=== PATIENT | female | born 1990 | race Caucasian/White ===

== ENCOUNTER → 2017-10-27 15:13 | Outpatient (CLI) | payer SELFPAY ==
[2017-10-27 17:34] LABS: Chlamydia Trachomatis by PCR Negative (Negative); Neisserai gonorrhoeae by PCR Negative (Negative); Probe Check PASS; Sample Adequacy Control PASS; Specimen Processing Control PASS
== END ==
PROVIDERS: Visit Provider Obstetrics & Gynecology
DX: Z34.90 Encounter for supervision of normal pregnancy, unspecified, unspecified trimester (principal)
CPT/HCPCS: 87086; 87088; 87491; 87591

== ENCOUNTER → 2017-10-29 09:48 | Outpatient (CLI) | payer SELFPAY ==
[2017-10-29 10:08] LABS: Absolute Lymphocyte Count 1.65 X10^3/ul (0.83-4.51); Basophil# 0.01 X10^3/uL; Basophil% 0.1 % (0-1); Eosinophil# 0.22 X10^3/uL; Hematocrit 39.8 % (37-47); Hemoglobin 13.6 g/dl (12.0-15.0); Lymphocyte # 1.65 X10^3/ul (4.0); Lymphocyte % 22.8 % (19-41); Mean Corp Hgb Conc 34.2 g/gl (32-36); Mean Corpuscular Hgb 29.2 pg (27.0-32.0); Mean Corpuscular Volume 85.4 fL (81-99); Mean Platelet Vol. 9.4 fl (6.2-12.0); Monocyte# 0.34 X10^3/uL; Monocyte% 4.7 % (0-10); Neutrophil # 5.02 X10^3/uL (2.7-7.7); Neutrophil % 69.3 % (47-70); Platelet Count 218 K/mm3 (150-450); RBC Distribution Width CV 12.7 % (11.6-14.6); Red Blood Count 4.66 M/mm3 (4.2-5.4); White Blood Count 7.3 K/mm3 (4.4-11.0)
[2017-10-29 10:10] LABS: POSITIVE COUNT NO; POSITIVE DIFFERENTIAL NO; POSITIVE MORPHOLOGY NO
[2017-10-29 11:22] LABS: HIV - WCH Non-Reactive (Nonreactive); Rubella IgG 122.1 IU/mL
[2017-11-01 09:10] LABS: HEPATITIS B SURFACE AG Negative (Negative)
[2017-11-05 05:06] LABS: Rapid Plasmin Reagin (RPR) NONREACTIVE (NONREACTIVE)
== END ==
PROVIDERS: Visit Provider Obstetrics & Gynecology
DX: Z34.90 Encounter for supervision of normal pregnancy, unspecified, unspecified trimester (principal)
CPT/HCPCS: 36415; 85025; 86592; 86703; 86762; 86850; 86900; 87340

== ENCOUNTER → 2017-12-13 12:26 | Outpatient (CLI) | payer MEDICAID, SELFPAY ==
--- NOTE | 2017-12-13 12:29 | US_ITS ---
STUDY: SECOND AND THIRD TRIMESTER OBSTETRICAL ULTRASOUND REASON FOR EXAM: Female, 26 years old. Routine survey. LMP: August 02, 2017. TECHNIQUE: Transabdominal PRIOR ULTRASOUND: None. FINDINGS: There is a single intrauterine fetus. The fetus is in an transverse lie with the head on the maternal left side. There is demonstrated cardiac activity with a heart rate of 134 bpm. There is a normal amniotic fluid volume. The largest amniotic fluid pocket measures 4.9 cm x 8.9 cm. The amniotic fluid index (CATY) is within normal limits. The placenta is posterior in location and is not low lying. There are Grade 0 placental changes. The cervix measures 5.3 cm in length. The bilateral adnexal regions are normal. BIOMETRY: BPD: 4.1 cm: 8 weeks, 4 days HC: 15.3 cm: 8 weeks, 3 days AC: 13.1 cm: 8 weeks, 5 days FL: 2.9 cm: 18 weeks, 6 days CI: 79% FL/BPD: 70% FL/HC: FL/AC: 22% HC/AC: 1.17 age by current US: . 18 weeks, 5 days. ELOISA by current US: May 11, 2018. Estimated weight: 251 grams, +/- 37 grams, 27 %. Age by LMP: 19 weeks, 0 days. ELOISA by LMP: May 09, 2018. ANATOMY: Gender: Female Cranium: Normal lateral ventricles. Normal choroid plexus. Normal cerebellum. Normal cisterna magna. Normal face, nose and lips. Chest: Normal 4-chamber heart. Abdomen/Pelvis: Normal diaphragm. Normal stomach. Normal abdominal wall. Normal cord insertion. Normal 3 vessel cord. Moderate to severe degree of bilateral hydronephrosis. Normal bladder. Spine: Normal cervical spine. Normal thoracic spine. Normal lumbar spine. Normal sacrum. Extremities: Normal bilateral upper extremities. Normal bilateral lower extremities. US/OB Anatomy Scan IMPRESSION: Single live intrauterine gestation with a mean gestational age of 18 weeks and 5 days. Moderate to severe degree of bilateral hydronephrosis. The referring physician was notified. Electronically Signed: Ted Matt MD at 14:01 EDT Tel [phone], Service support ,
== END ==
PROVIDERS: Visit Provider Obstetrics & Gynecology
DX: Z34.81 Encounter for supervision of other normal pregnancy, first trimester (principal)
CPT/HCPCS: 76805

== ENCOUNTER → 2018-02-18 12:31 | Outpatient (CLI) | payer MEDICAID, SELFPAY ==
[2018-02-18 13:38] LABS: Absolute Lymphocyte Count 1.41 X10^3/ul (0.83-4.51); Absolute Neutrophil Count 5.7 X10^3/uL (2.0-7.7); Basophil# 0.01 X10^3/uL; Basophil% 0.1 % (0-1); Eosinophil# 0.08 X10^3/uL; Eosinophils% 1.1 % (0-5); Hemoglobin 12.3 g/dl (12.0-15.0); Lymphocyte # 1.41 X10^3/ul (4.0); Lymphocyte % 18.9 % (19-41); Mean Corp Hgb Conc 33.2 g/gl (32-36); Mean Corpuscular Hgb 29.4 pg (27.0-32.0); Mean Corpuscular Volume 88.5 fL (81-99); Mean Platelet Vol. 10.1 fl (6.2-12.0); Monocyte# 0.24 X10^3/uL; Monocyte% 3.2 % (0-10); Neutrophil # 5.72 X10^3/uL (2.7-7.7); Neutrophil % 76.6 % (47-70); Platelet Count 245 K/mm3 (150-450); RBC Distribution Width CV 13.4 % (11.6-14.6); RBC Distribution Width SD 42.8 fl (35.1-43.9); Red Blood Count 4.18 M/mm3 (4.2-5.4); White Blood Count 7.5 K/mm3 (4.4-11.0)
[2018-02-18 13:43] LABS: POSITIVE COUNT NO; POSITIVE DIFFERENTIAL NO; POSITIVE MORPHOLOGY NO
[2018-02-18 14:02] LABS: Glucose Challenge Gest 1H 50g 187 mg/dL (70-140)
== END ==
PROVIDERS: Visit Provider Obstetrics & Gynecology
DX: Z34.90 Encounter for supervision of normal pregnancy, unspecified, unspecified trimester (principal)
CPT/HCPCS: 36415; 82950; 85025; 86850; 86900

== ENCOUNTER 2018-03-03 08:56 | Outpatient (RCR) | payer MEDICAID, SELFPAY | END 2018-03-06 23:59 | LOC: DC 08:56 | PROVIDERS: Visit Provider Nurse Practitioner Women's Health | DX: O24.419 Gestational diabetes mellitus in pregnancy, unspecified control (principal); Z71.3 Dietary counseling and surveillance | CPT/HCPCS: G0108 ==

== ENCOUNTER → 2018-03-28 19:46 | Outpatient (CLI) | payer MEDICAID, SELFPAY | PROVIDERS: Referring Provider Nurse Practitioner Women's Health; Visit Provider Nurse Practitioner Women's Health | DX: M54.5 Low back pain (principal) | CPT/HCPCS: 87086; 87088 ==

== ENCOUNTER 2018-03-31 15:15 | Outpatient (RCR) | payer MEDICAID, SELFPAY | END 2018-04-06 23:59 | LOC: DC 15:15 | PROVIDERS: Visit Provider Nurse Practitioner Women's Health | DX: O24.419 Gestational diabetes mellitus in pregnancy, unspecified control (principal); Z71.3 Dietary counseling and surveillance | CPT/HCPCS: 97802 ==

== ENCOUNTER 2018-04-07 08:00 | Outpatient (RCR) | payer MEDICAID, SELFPAY | END 2018-04-07 23:59 | disposition home or self-care (01) | LOC: DC 08:00 | PROVIDERS: Visit Provider Nurse Practitioner Women's Health | DX: O24.419 Gestational diabetes mellitus in pregnancy, unspecified control (principal); Z71.3 Dietary counseling and surveillance ==

== ENCOUNTER → 2018-04-14 19:50 | Outpatient (CLI) | payer MEDICAID, SELFPAY ==
[2018-04-14 21:18] LABS: Group B Strep DNA By PCR POSITIVE (Negative)
[2018-04-14 21:19] LABS: Probe Check PASS
== END ==
PROVIDERS: Referring Provider Obstetrics & Gynecology; Visit Provider Obstetrics & Gynecology
DX: Z34.90 Encounter for supervision of normal pregnancy, unspecified, unspecified trimester (principal)
CPT/HCPCS: 87653

== ENCOUNTER → 2018-04-21 13:29 | Outpatient (CLI) | payer MEDICAID, SELFPAY ==
[2018-04-14 09:56] VITALS: BMI 36.0
[2018-04-21 14:36] LABS: Absolute Lymphocyte Count 1.13 X10^3/ul (0.83-4.51); Absolute Neutrophil Count 4.3 X10^3/uL (2.0-7.7); Basophil# 0.01 X10^3/uL; Basophil% 0.2 % (0-1); Eosinophil# 0.12 X10^3/uL; Eosinophils% 2.1 % (0-5); Hematocrit 35.2 % (37-47); Hemoglobin 11.4 g/dl (12.0-15.0); Lymphocyte # 1.13 X10^3/ul (4.0); Lymphocyte % 19.5 % (19-41); Mean Corp Hgb Conc 32.4 g/gl (32-36); Mean Corpuscular Hgb 27.8 pg (27.0-32.0); Mean Corpuscular Volume 85.9 fL (81-99); Mean Platelet Vol. 10.9 fl (6.2-12.0); Monocyte# 0.23 X10^3/uL; Platelet Count 198 K/mm3 (150-450); RBC Distribution Width SD 39.9 fl (35.1-43.9); White Blood Count 5.8 K/mm3 (4.4-11.0)
[2018-04-21 14:38] LABS: POSITIVE COUNT NO; POSITIVE DIFFERENTIAL NO; POSITIVE MORPHOLOGY NO
[2018-04-21 15:01] LABS: ALB/GLOB Ratio 0.6 RATIO (0.9-2.4); AST(SGOT) 17 U/L (15-37); Alanine Aminotransfer ALT/SGPT 22 U/L (13-56); Albumin, Serum 2.4 g/dL (3.2-5.0); Alkaline Phosphatase 110 U/L (45-117); Anion Gap 10 (5-15); BUN 5 mg/dL (7-18); BUN/Creat Ratio 7.3 RATIO (10-20); Calcium,Total 8.5 mg/dL (8.5-10.1); Chloride 108 mmol/L (98-107); Creatinine, Serum 0.68 mg/dL (0.55-1.02); EST Glomerular Filtration Rate 108 mL/min (>60); Est Glom Filt Rate - Afr Amer 131 mL/min (>60); Glucose 126 mg/dL (74-106); Potassium 3.8 mmol/L (3.5-5.1); Protein, Total 6.4 g/dL (6.4-8.2); Sodium Level 141 mmol/L (136-145)
== END ==
PROVIDERS: Referring Provider Obstetrics & Gynecology; Visit Provider Obstetrics & Gynecology
DX: Z87.59 Personal history of other complications of pregnancy, childbirth and the puerperium (principal); Z87.19 Personal history of other diseases of the digestive system
CPT/HCPCS: 80053; 85025

== ENCOUNTER 2018-04-25 11:40 | Outpatient (CLI) | payer MEDICAID, SELFPAY ==
[2018-04-22 09:19] VITALS: BMI 35.9
[2018-04-25 11:57] VITALS: BMI 36.1
--- NOTE | 2018-04-25 21:03 | OB.TRI.NOTE ---
- Problem List (1) History of shoulder dystocia in prior , currently in third trimester Status: Acute Comment: discussed 20% risk of recurrence, will discuss with MFM. patient prefers (2) Breech presentation Status: Acute Qualifiers: Comment: discussed ECV version CS- patient prefers ECV if MFM approves . (3) Gestational diabetes mellitus (GDM) Status: Acute Qualifiers: Comment: test twice a day (4) Unspecified contraceptive management Status: Acute Comment: mirena IUD (5) Abnormal glucose affecting Status: Acute Comment: Prior hx of GDM and prefers to not due 3hr GTT and follow GDM guidelines (6) Pyelectasis of fetus on ultrasound Status: Acute Comment: MFM consult- sees them weekly (7) History of gestational diabetes in prior , currently Status: Acute (8) Supervision of normal Status: Acute Qualifiers: Comment: PRR ELOISA 05/09/18 PC Maki and Ever winston Brayan (9) Rh negative status during Status: Acute Qualifiers: Comment: rhogam prn and at 28 weeks History of Present Illness Date of Service: 04/25/18 Was patient seen by the physician?: Yes Reason For Visit: NST History of Present Illness: breech, gdma1. fetus measuring 3 ounces larger than her last delivery that had a shoulder dystocia Allergies No Known Allergies Allergy (Verified 04/25/18 11:59) - Pertinent Past Medical History Medical History: Past Medical History (Last Reviewed 04/22/18 @ 09:20 by Shelly Daniels) Ectopic Gestational diabetes NST - FHR Rate Baby A Baseline: 130 Variability:: Moderate Accelerations:: 15 x 15 Decelerations:: None NST Reactive:: Yes FHR Category:: Category I Uterine Activity:: no regular Impression/Plan gdma and breech- discussed version, but now that the baby is measuring larger than her last child that had a shoulder dystocia, would recommend primary csection so will not proceed with version. patient amenable to primary cs
== END 2018-04-25 12:45 | disposition home or self-care (01) ==
LOC: WPOUT 11:42 → WP 11:43
PROVIDERS: Referring Provider Obstetrics & Gynecology; Visit Provider Obstetrics & Gynecology
DX: O32.1XX0 Maternal care for breech presentation, not applicable or unspecified (principal); O24.419 Gestational diabetes mellitus in pregnancy, unspecified control; O09.899 Supervision of other high risk pregnancies, unspecified trimester; O35.8XX0 Maternal care for other (suspected) fetal abnormality and damage, not applicable or unspecified; Z3A.00 Weeks of gestation of pregnancy not specified
CPT/HCPCS: 59025

== ENCOUNTER 2018-05-02 10:00 | Inpatient (IN) | payer MEDICAID, SELFPAY ==
[2018-04-26 08:56] VITALS: BMI 36.1
[2018-04-29 13:58] VITALS: BMI 36.1
[2018-05-02] VITALS (18 sets, daily range): BP systolic 109–125; BP diastolic 46–89; PULSE 62–105; RESP 16–18; TEMP 36.2–37.2; O2SAT 96–100; BMI 36.1
[2018-05-02] MEDS: Lactated Ringers 1,000 ML 999 ML IV (10:30)
[2018-05-02 10:46] LABS: Absolute Lymphocyte Count 1.36 X10^3/ul (0.83-4.51); Absolute Neutrophil Count 4.4 X10^3/uL (2.0-7.7); Basophil# 0.02 X10^3/uL; Basophil% 0.3 % (0-1); Eosinophil# 0.06 X10^3/uL; Hematocrit 38.4 % (37-47); Hemoglobin 12.7 g/dl (12.0-15.0); Lymphocyte # 1.36 X10^3/ul (4.0); Lymphocyte % 22.1 % (19-41); Mean Corp Hgb Conc 33.1 g/gl (32-36); Mean Corpuscular Volume 84.6 fL (81-99); Mean Platelet Vol. 11.2 fl (6.2-12.0); Monocyte# 0.34 X10^3/uL; Monocyte% 5.5 % (0-10); Neutrophil # 4.36 X10^3/uL (2.7-7.7); Neutrophil % 71.1 % (47-70); Platelet Count 200 K/mm3 (150-450); RBC Distribution Width CV 13.2 % (11.6-14.6); RBC Distribution Width SD 40.2 fl (35.1-43.9); Red Blood Count 4.54 M/mm3 (4.2-5.4); White Blood Count 6.1 K/mm3 (4.4-11.0)
[2018-05-02 10:50] LABS: POSITIVE COUNT NO; POSITIVE DIFFERENTIAL NO; POSITIVE MORPHOLOGY NO
[2018-05-02 11:30] LABS: Bedside Glucose 71 mg/dL (70-110)
[2018-05-02] MEDS: Lactated Ringers 1,000 ML 150 ML IV (11:37)
[2018-05-02] MEDS: Cefazolin 2 GM in 0.9% Normal Saline 100 ML IV (12:00)
[2018-05-02] MEDS: Sodium Citrate/Citric Acid 30 ML UDC PO (12:25)
[2018-05-02] MEDS: Oxytocin 30 units/NS 500 ml 30 UNITS/500 ML IV.SOLN 167 UNITS IV (13:00)
--- NOTE | 2018-05-02 13:47 | SKTAG_PTH ---
PATIENT: KARRIE CAMACHO LOC: [facility] U#:[id number] AGE/SX: 27/F ROOM: WP004 RE05/02/[address]: Dr. Latesha Gamez MD : 1990 BED: 1 DIS: 05/03/2018 SPEC #: [id number] RECD: 05/02/18 14:22 STATUS: DEEJAY RECheryl #: [id number] MARK: 05/02/18 13:[address]: Latesha Torres DEPT: SURGICAL PATHOLOGY RECD BY: Linda Rodriguez ENTERED: 05/02/18 14:33 SP TYPE: SKIN TAG OTHR DR: No Primary Care Phys Tissues: Skin appendage, NOS Procedures: Surgery Specimen Level III HEADER OPERATION: Right groin skin tag removal PRE-OP DIAGNOSIS: Right groin skin tag TISSUE SUBMITTED: Right groin skin tag MICROSCOPIC DIAGNOSIS Right groin skin tag, biopsy: Fibroepithelial polyp (skin tag) with focal hyperkeratosis and parakeratosis. SJ:gus 05/03/18 MICROSCOPIC DESCRIPTION Slides are reviewed. GROSS DESCRIPTION Received is one container labeled with the patient's name and not further designated. The specimen consists of a polypoid piece of freedman-white skin measuring 0.5 x 0.5 x 0.2 cm. The specimen is bisected and submitted entirely in one cassette. / MARVIN:gus 05/02/18 TC:5 [facility]: [id number]
--- NOTE | 2018-05-02 13:51 | OP.PCM_ITS ---
- Problem List (1) delivery delivered Status: Acute (2) Breech presentation Status: Acute Qualifiers: Fetus number: single or unspecified fetus Comment: vince breech (3) Gestational diabetes mellitus (GDM) Status: Acute Qualifiers: Gestational diabetes mellitus control: diet-controlled Trimester: third trimester Qualified Code(s): O24.410 - Gestational diabetes mellitus in , diet controlled (4) Pyelectasis of fetus on ultrasound Status: Acute Comment: Infant transferred to [facility] for possible urinary obstruction on DOL1. Delivery Classification: Scheduled Final ELOISA: 05/09/18 Gestational age: 39 Weeks and 0 Days Indications: 27-year-old 4 para 1103 at 39 weeks gestational age ELOISA 05/09/2018 presents for scheduled section for breech presentation. She also has a history of GDM A1, bilateral hydronephrosis currently as well as shoulder dystocia during her first vaginal delivery. Risks, benefits, indications and alternatives to the procedure were reviewed and patient desired to proceed. Consents were signed. Indications for : Breech Description of Procedure: The patient was taken to the operating room and sign in performed. Spinal analgesia was administered. She is placed in a dorsal supine position with left lateral tilt. The perineum and abdomen were prepped and time out done. She was draped in sterile fashion and the spinal was found to be adequate. A Pfannenstiel incision was made using a scalpel and brought down to incise the subcutaneous tissue and rectus fascia at the midline. Subcutaneous tissue was bluntly dissected off the fascia laterally. The fascial incision was dissected laterally and cephalad using curved Obrien scissors. The superior leaflet of the rectus fascia was grasped using Shay clamps and bluntly dissected and sharply dissected from the underlying rectus muscle. In a similar fashion the inferior rectus fascia was dissected from the underlying muscle. The rectus muscles were bluntly at the midline. The peritoneum was identified and entered [sharply]. The bladder blade was placed into the abdomen and the vesicouterine peritoneal fold identified. The fold was incised and a bladder flap created. Bladder blade was then repositioned to the abdomen. A low transverse hysterotomy was made using the [Metzenbaum scissors] to level of the membranes. The hysterotomy was extended bluntly cephalad and caudad. The membranes were then ruptured revealing clear fluid. The breech was elevated and delivered through the hysterotomy. The was delivered to the level of the shoulders using gentle bidirectional rotation. The right, then left elbows were swept allowing delivery of the respective upper extremities. The Yzigodbmq-Ypbcteu-Ocdi maneuver was performed with delivery of the head. The cord was doubly clamped and cut after 30 seconds. The was passed to awaiting [nursery personnel]. The placenta was [expressed] from the uterus and appeared intact on inspection. The uterus was cleared of debris. However, there were densely adherent membranes to the anterior lower uterine segment. Banjo curettage was performed with loosening and retrieval of the membranes. The hysterotomy was then repaired using 0 Vicryl running lock suture. A second imbricating layer was also placed for additional hemostasis. The bladder blade was removed. The anterior cul-de-sac was cleared of debris. The peritoneum and rectus muscles were reapproximated using 2-0 Vicryl running suture. The rectus fascia was closed using 0 Stratafix running suture. The subcutaneous tissue was sponge irrigated and small capillary bleeding controlled using the Bovie device. The subcutaneous tissue was reapproximated using 2-0 Vicryl. The skin was closed using 4-0 Monocryl subcuticularly. Cavilon was applied and a Mepilex occlusive dressing was placed over the incision. The fundus was firm. The patient was then transferred to the recovery room without complication. Sponge, instrument, and needle counts were correct ?2. Amniotic Membrane Rupture Type: Spontaneous Amniotic Fluid Description: Clear Placenta Disposition: [facility] Drain: Hernandez to straight drain Fluids Replaced: 1200ml Cord Entanglement: None Nuchal Cord Compression: Without compression Cord Vessel Description: 3 Vessels Esitmated Blood Loss (ml): 600 Gender: Female (1 minute): 8 (5 minute): 9 Delayed cord clamping: Yes Pre-op Antibiotic Given: Ancef 2 grams IV x1 Pt instructed on risks of surgery: Bleeding, Anesthesia Risks, Infection, Injury to surrounding structure(s) including bowel and bladder Complications: None - Admit VTE Documentation VTE Present on Admission: No VTE Mechan Device Prophylaxis: SCD's VTE Pharm Prophylaxis ordered?: No
[2018-05-02 14:20] LABS: Pathology Skin Biopsy SEE PATHOLOGY REPORT
[2018-05-02] MEDS: Ondansetron ODT 4 MG Tablet PO (14:58)
[2018-05-02 15:45] LABS: Bedside Glucose 73 mg/dL (70-110)
[2018-05-02] MEDS: proMETHazine 25 MG/ML Syringe 12.5 MG IV (18:04)
[2018-05-02] MEDS: Ketorolac 30 MG/ML Syringe IV (18:44)
[2018-05-03] VITALS (8 sets, daily range): BP systolic 112–128; BP diastolic 55–87; PULSE 80–107; RESP 16–18; TEMP 36.2–36.6; O2SAT 97–100
[2018-05-03] MEDS: Ketorolac 30 MG/ML Syringe IV ×3 (00:04→11:52)
[2018-05-03] MEDS: 0.9% Saline Lock 10 ML Syringe IV ×2 (00:04→05:08)
[2018-05-03 05:16] LABS: Bedside Glucose 89 mg/dL (70-110)
[2018-05-03 05:42] LABS: Hemoglobin 9.2 g/dl (12.0-15.0); Mean Corp Hgb Conc 31.7 g/gl (32-36); Mean Corpuscular Hgb 27.4 pg (27.0-32.0); Mean Corpuscular Volume 86.3 fL (81-99); Mean Platelet Vol. 10.9 fl (6.2-12.0); Platelet Count 156 K/mm3 (150-450); RBC Distribution Width CV 13.2 % (11.6-14.6); RBC Distribution Width SD 39.9 fl (35.1-43.9); Red Blood Count 3.36 M/mm3 (4.2-5.4); White Blood Count 6.5 K/mm3 (4.4-11.0)
[2018-05-03 05:46] LABS: Scan Indicated on CBC? Y/N NO
--- NOTE | 2018-05-03 07:48 | PCM.PN.OB ---
Subjective: Pain is controlled, OOB and passing flatus. Nausea resolved. Tolerates a regular diet. was transferred to [facility] overnight. Sofia has no complaints this morning and has used a breast pump. Objective: AVSS - Physical Exam General: Alert, Oriented x3, Cooperative, No apparent distress HEENT: Atraumatic, Normocephalic Lungs: Clear to auscultation, Normal air movement Cardiovascular: Regular rate, Regular Rhythm, Normal S1, Normal S2, No murmurs Abdomen: Bowel Sounds Present, Soft, Non Tender, Non-Distended, - - Fundus firm at umbilicus and nontender, lochia scant, incisional dressing dry and intact with minimal subcentimeter area of saturation Extremities: No Calf Tenderness, - - trace LE edema Neurological: Neuro grossly intact Psych/Mental Status: Normal Affect, Appropriate, Alert and oriented to time, place, person, mood and affect Vital Signs Temp Pulse Resp BP Pulse Ox 97.8 F 87 16 112/63 97 05/03/18 07:38 05/03/18 07:38 05/03/18 07:38 05/03/18 07:38 05/03/18 07:38 Oxygen Flow Rate (L/min) 2 Oxygen Delivery Method Room Air Weight: 98.5 kg Body Mass Index (BMI) 36.1 Intake and Output for Last 24 Hours 05/01/18 05/02/18 05/03/18 23:59 23:59 23:59 Intake Total 4051 / 4051 941 / 941 Output Total 875 / 875 2400 / 2400 Balance 3176 / 3176 -1459 / -1459 Laboratory Tests Past 24 Hrs 05/02/18 05/02/18 05/02/18 10:15 10:15 10:15 WBC 6.1 RBC 4.54 Hgb 12.7 Hct 38.4 MCV 84.6 MCH 28.0 MCHC 33.1 RDW 13.2 RDW Differential 40.2 Plt Count 200 MPV 11.2 Immature Gran % (Auto) 0.000 Neut % (Auto) 71.1 H Lymph % (Auto) 22.1 [place] % (Auto) 5.5 Eos % (Auto) 1.0 Baso % (Auto) 0.3 Absolute Neuts (auto) 4.4 Absolute Lymphs (auto) 1.36 Total Counted Not Reportable Blood Type A NEGATIVE Antibody Screen TNP NEGATIVE 05/03/18 05:10 WBC 6.5 RBC 3.36 L Hgb 9.2 L Hct 29.0 L MCV 86.3 MCH 27.4 MCHC 31.7 L RDW 13.2 RDW Differential 39.9 Plt Count 156 MPV 10.9 Immature Gran % (Auto) Neut % (Auto) Lymph % (Auto) [place] % (Auto) Eos % (Auto) Baso % (Auto) Absolute Neuts (auto) Absolute Lymphs (auto) Total Counted Blood Type Antibody Screen POC Glucose 05/03/18 05/02/18 05/02/18 05:11 15:28 11:10 POC Glucose 89 73 71 Medical Necessity - Tobacco Use Smoking Status: Never smoker Assessment/Plan All Active Problems (Last Reviewed 04/26/18 @ 08:56 by Shelly Daniels) Positive GBS test (Acute) History of shoulder dystocia in prior , currently in third trimester (Acute) Breech presentation (Acute) Gestational diabetes mellitus (GDM) (Acute) Unspecified contraceptive management (Acute) Abnormal glucose affecting (Acute) Pyelectasis of fetus on ultrasound (Acute) History of gestational diabetes in prior , currently (Acute) Supervision of normal (Acute) Rh negative status during (Acute) Polyhydramnios affecting (Resolved) 27yo POD#1 s/p PLTCS for breech presentation doing well. -Rh negative - B positive - Rhogam ordered -Rub immune -d/c murrieta -Routine postop care -/pumping -Consider early discharge this afternoon given dyad separation. transferred for possible urinary obstruction.
--- NOTE | 2018-05-03 07:58 | PCM.DCCSEC ---
Discharge Diet: No Restrictions Discharge Activity: Return to Normal Activity, May not drive while taking narcotic pain medications., May Shower, - - No tub bath May resume sexual activity in: 6 weeks Lifting Restrictions: 10 lb Call your doctor if your incision/area has: Continuous Slow Oozing, Sudden Increased Bleeding, Increased Pain/ Swelling, Increased Redness Call your doctor if you observe: Fever of 101 or Higher, Inability to urinate, Inability to have a bowel movement, Using more than one pad per hour, Shortness of breath, Chest pain, Calf discomfort, Uncontrolled pain, - - Severe or persistent headache Suture Line Care: Avoid Pulling/Pushing Remove Dressing in (days):: 6 - 05/09/18 Cleanse incision/area with: Soap & Water Additional Instructions: If you experience any of the following, contact your healthcare provider. Bleeding that soaks a pad every hour for 2 hours Fever 100.4 or higher Unrelieved incision or abdominal pain Swelling, redness, discharge or bleeding from your incision or episiotomy site Your incision begins to separate Problems urinating (including inability to urinate or burning while urinating). Visual changes Severe headache Flu-like symptoms Pain or redness in one of both of your breasts Pain, warmth, tenderness or swelling in your legs, especially the calf area Frequent nausea and vomiting Symptoms of depression or anxiety If you experience any of the following, call 911 or go to the nearest Emergency Room. Chest pain Problems breathing Seizure activity Partial or complete paralysis of a body part, slurred speech, weakness or drooping of the face, or a sudden inability to walk or hold your balance Allergies/Adverse Reactions: Allergies No Known Allergies Allergy (Verified 05/02/18 10:48) Medications to take at Discharge Vit No.130/Iron/FA [ Tablet] 1 ea PO DAILY 10/22/15 Follow-Up: Call to make an appointment with your doctor for an incision check in 1-2 weeks. You will also need a 6 week post- follow up appointment. Test results from this visit will be discussed in further detail at your follow-up appointment, if applicable. Please Follow Up With: Mago Zapata MD - Post-op visit When: 7-10 days Primary Care Physician: Care Physician,No Primary [Primary Care Provider] -
--- NOTE | 2018-05-03 08:01 | DCINST_ITS ---
Discharge Diet: No Restrictions Discharge Activity: Return to Normal Activity, May not drive while taking narcotic pain medications., May Shower, - - No tub bath May resume sexual activity in: 6 weeks Lifting Restrictions: 10 lb Call your doctor if your incision/area has: Continuous Slow Oozing, Sudden Increased Bleeding, Increased Pain/ Swelling, Increased Redness Call your doctor if you observe: Fever of 101 or Higher, Inability to urinate, Inability to have a bowel movement, Using more than one pad per hour, Shortness of breath, Chest pain, Calf discomfort, Uncontrolled pain, - - Severe or persistent headache Suture Line Care: Avoid Pulling/Pushing Remove Dressing in (days):: 6 - 05/09/18 Cleanse incision/area with: Soap & Water Additional Instructions: If you experience any of the following, contact your healthcare provider. * Bleeding that soaks a pad every hour for 2 hours * Fever 100.4 or higher * Unrelieved incision or abdominal pain * Swelling, redness, discharge or bleeding from your incision or episiotomy site * Your incision begins to separate * Problems urinating (including inability to urinate or burning while urinating). * Visual changes * Severe headache * Flu-like symptoms * Pain or redness in one of both of your breasts * Pain, warmth, tenderness or swelling in your legs, especially the calf area * Frequent nausea and vomiting * Symptoms of depression or anxiety If you experience any of the following, call 911 or go to the nearest Emergency Room. * Chest pain * Problems breathing * Seizure activity * Partial or complete paralysis of a body part, slurred speech, weakness or drooping of the face, or a sudden inability to walk or hold your balance Allergies/Adverse Reactions: Allergies No Known Allergies Allergy (Verified 05/02/18 10:48) Medications to take at Discharge Vit No.130/Iron/FA [ Tablet] 1 ea PO DAILY 10/22/15 Follow-Up: Call to make an appointment with your doctor for an incision check in 1-2 weeks. You will also need a 6 week post- follow up appointment. Test results from this visit will be discussed in further detail at your follow- up appointment, if applicable. Please Follow Up With: Mago Zapata MD - Post-op visit When: 7-10 days Primary Care Physician: Care Physician,No Primary [Primary Care Provider] -
--- NOTE | 2018-05-03 08:01 | PCM.DC.SUM ---
Discharge Date and Diagnosis - Problem List Patient Problems: Active and Suspected Problems (Last Reviewed 04/26/18 @ 08:56 by Shelly Daniels) delivery delivered (Acute) Breech presentation (Acute) vince breech Gestational diabetes mellitus (GDM) (Acute) Date of Admission: 05/02/18 Date of Discharge: 05/03/18 - Primary Discharge Diagnosis Active and Suspected Problems (Last Reviewed 04/26/18 @ 08:56 by Shelly Daniels) delivery delivered (Acute) Breech presentation (Acute) discussed ECV version CS- patient prefers ECV if [facility] approves . Gestational diabetes mellitus (GDM) (Acute) test twice a day Hospital Course and Treatment Operations: - - section, R. groin skin tag removal Summary of Care Provided: The patient is a 27 year old F 5 Para 1123 with history of shoulder dystocia at prior delivery, GDMA1, bilateral hydronephrosis admitted at 39 weeks gestation for scheduled section for breech presentation. She underwent section. Shortly after delivery, her was transferred to for possible urinary obstruction. The patient was out of bed, ambulating, passing flatus, tolerating a regular diet on post-operative day 1. She was discharged on post-operative day 1. Patient Problems: Active and Suspected Problems (Last Reviewed 04/26/18 @ 08:56 by Shelly Daniels) delivery delivered (Acute) Breech presentation (Acute) vince breech Gestational diabetes mellitus (GDM) (Acute) - Physical Exam Vital Signs Temp Pulse Resp BP Pulse Ox 97.8 F 87 16 112/63 97 05/03/18 07:38 05/03/18 07:38 05/03/18 07:38 05/03/18 07:38 05/03/18 07:38 Oxygen Flow Rate (L/min) 2 Oxygen Delivery Method Room Air Weight: 98.5 kg Body Mass Index (BMI) 36.1 Intake and Output for Last 24 Hours 05/01/18 05/02/18 05/03/18 23:59 23:59 23:59 Intake Total 4051 / 4051 941 / 941 Output Total 875 / 875 2400 / 2400 Balance 3176 / 3176 -1459 / -1459 Laboratory Tests Past 24 Hrs 05/02/18 05/02/1818 10:15 10:15 10:15 WBC 6.1 RBC 4.54 Hgb 12.7 Hct 38.4 MCV 84.6 MCH 28.0 MCHC 33.1 RDW 13.2 RDW Differential 40.2 Plt Count 200 MPV 11.2 Immature Gran % (Auto) 0.000 Neut % (Auto) 71.1 H Lymph % (Auto) 22.1 [place] % (Auto) 5.5 Eos % (Auto) 1.0 Baso % (Auto) 0.3 Absolute Neuts (auto) 4.4 Absolute Lymphs (auto) 1.36 Total Counted Not Reportable Blood Type A NEGATIVE Antibody Screen TNP NEGATIVE 05/03/18 05:10 WBC 6.5 RBC 3.36 L Hgb 9.2 L Hct 29.0 L MCV 86.3 MCH 27.4 MCHC 31.7 L RDW 13.2 RDW Differential 39.9 Plt Count 156 MPV 10.9 Immature Gran % (Auto) Neut % (Auto) Lymph % (Auto) [place] % (Auto) Eos % (Auto) Baso % (Auto) Absolute Neuts (auto) Absolute Lymphs (auto) Total Counted Blood Type Antibody Screen POC Glucose 05/03/18 05/02/18 05/02/18 05:11 15:28 11:10 POC Glucose 89 73 71 Discharge Diet: No Restrictions Discharge Activity: Return to Normal Activity, May not drive while taking narcotic pain medications., May Shower, - - No tub bath May resume sexual activity in: 6 weeks Call your doctor if your incision/area has: Continuous Slow Oozing, Sudden Increased Bleeding, Increased Pain/ Swelling, Increased Redness Call your doctor if you observe: Fever of 101 or Higher, Inability to urinate, Inability to have a bowel movement, Using more than one pad per hour, Shortness of breath, Chest pain, Calf discomfort, Uncontrolled pain, - - Severe or persistent headache Suture Line Care: Avoid Pulling/Pushing Remove Dressing in (days):: 6 - 05/09/18 Cleanse incision/area with: Soap & Water Home Medications: Medications to take at Discharge Vit No.130/Iron/FA [ Tablet] 1 ea PO DAILY 10/22/15 Docusate Sodium [Colace] 100 mg PO BID PRN PRN #60 capsule 05/03/18 Ferrous Sulfate 325 mg PO BIDCM #60 tablet 05/03/18 Ibuprofen 600 mg PO TID PRN #30 tablet 05/03/18 Oxycodone [Oxyir] 5 mg PO Q6H PRN PRN 7 Days #20 tablet 05/03/18 Following Prescrptions Were Given to Patient: Oxycodone [Oxyir] 5 mg PO Q6H PRN PRN 7 Days #20 tablet PRN Reason: Severe Pain (-03/16) Docusate Sodium [Colace] 100 mg PO BID PRN PRN #60 capsule PRN Reason: Constipation Ferrous Sulfate 325 mg PO BIDCM #60 tablet Ibuprofen 600 mg PO TID PRN #30 tablet PRN Reason: Pain Primary Care Physician: Care Physician,No Primary [Primary Care Provider] - Please Follow Up With: Mago Zapata MD - Post-op visit When: 7-10 days Medical Necessity - Tobacco Use Smoking Status: Never smoker Meaningful Use Info Meaningful Use Diagnoses (Choose all that apply): None applicable
--- NOTE | 2018-05-03 08:05 | DS.PCM_ITS ---
Discharge Date and Diagnosis - Problem List Patient Problems: Active and Suspected Problems (Last Reviewed 04/26/18 @ 08:56 by Shelly Daniels) delivery delivered (Acute) Breech presentation (Acute) vince breech Gestational diabetes mellitus (GDM) (Acute) Date of Admission: 05/02/18 Date of Discharge: 05/03/18 - Primary Discharge Diagnosis Active and Suspected Problems (Last Reviewed 04/26/18 @ 08:56 by Shelly Daniels) delivery delivered (Acute) Breech presentation (Acute) discussed ECV version CS- patient prefers ECV if [facility] approves . Gestational diabetes mellitus (GDM) (Acute) test twice a day Hospital Course and Treatment Operations: - - section, R. groin skin tag removal Summary of Care Provided: The patient is a 27 year old F 5 Para 1123 with history of shoulder dystocia at prior delivery, GDMA1, bilateral hydronephrosis admitted at 39 weeks gestation for scheduled section for breech presentation. She underwent section. Shortly after delivery, her was transferred to [facility] for possible urinary obstruction. The patient was out of bed, ambulating, passing flatus, tolerating a regular diet on post-operative day 1. She was discharged on post-operative day 1. Patient Problems: Active and Suspected Problems (Last Reviewed 04/26/18 @ 08:56 by Shelly Daniels) delivery delivered (Acute) Breech presentation (Acute) vince breech Gestational diabetes mellitus (GDM) (Acute) - Physical Exam Vital Signs Temp Pulse Resp BP Pulse Ox 97.8 F 87 16 112/63 97 05/03/18 07:38 05/03/18 07:38 05/03/18 07:38 05/03/18 07:38 05/03/18 07:38 Oxygen Flow Rate (L/min) 2 Oxygen Delivery Method Room Air Weight: 98.5 kg Body Mass Index (BMI) 36.1 Intake and Output for Last 24 Hours 05/01/18 05/02/18 05/03/18 23:59 23:59 23:59 Intake Total 4051 / 4051 941 / 941 Output Total 875 / 875 2400 / 2400 Balance 3176 / 3176 -1459 / -1459 Laboratory Tests Past 24 Hrs 05/02/18 05/02/1818 10:15 10:15 10:15 WBC 6.1 RBC 4.54 Hgb 12.7 Hct 38.4 MCV 84.6 MCH 28.0 MCHC 33.1 RDW 13.2 RDW Differential 40.2 Plt Count 200 MPV 11.2 Immature Gran % (Auto) 0.000 Neut % (Auto) 71.1 H Lymph % (Auto) 22.1 [place] % (Auto) 5.5 Eos % (Auto) 1.0 Baso % (Auto) 0.3 Absolute Neuts (auto) 4.4 Absolute Lymphs (auto) 1.36 Total Counted Not Reportable Blood Type A NEGATIVE Antibody Screen TNP NEGATIVE 05/03/18 05:10 WBC 6.5 RBC 3.36 L Hgb 9.2 L Hct 29.0 L MCV 86.3 MCH 27.4 MCHC 31.7 L RDW 13.2 RDW Differential 39.9 Plt Count 156 MPV 10.9 Immature Gran % (Auto) Neut % (Auto) Lymph % (Auto) [place] % (Auto) Eos % (Auto) Baso % (Auto) Absolute Neuts (auto) Absolute Lymphs (auto) Total Counted Blood Type Antibody Screen POC Glucose 05/03/18 05/02/18 05/02/18 05:11 15:28 11:10 POC Glucose 89 73 71 Discharge Diet: No Restrictions Discharge Activity: Return to Normal Activity, May not drive while taking narcotic pain medications., May Shower, - - No tub bath May resume sexual activity in: 6 weeks Call your doctor if your incision/area has: Continuous Slow Oozing, Sudden Increased Bleeding, Increased Pain/ Swelling, Increased Redness Call your doctor if you observe: Fever of 101 or Higher, Inability to urinate, I nability to have a bowel movement, Using more than one pad per hour, Shortness of breath, Chest pain, Calf discomfort, Uncontrolled pain, - - Severe or persistent headache Suture Line Care: Avoid Pulling/Pushing Remove Dressing in (days):: 6 - 05/09/18 Cleanse incision/area with: Soap & Water Home Medications: Medications to take at Discharge Vit No.130/Iron/FA [ Tablet] 1 ea PO DAILY 10/22/15 Docusate Sodium [Colace] 100 mg PO BID PRN PRN #60 capsule 05/03/18 Ferrous Sulfate 325 mg PO BIDCM #60 tablet 05/03/18 Ibuprofen 600 mg PO TID PRN #30 tablet 05/03/18 Oxycodone [Oxyir] 5 mg PO Q6H PRN PRN 7 Days #20 tablet 05/03/18 Following Prescrptions Were Given to Patient: Oxycodone [Oxyir] 5 mg PO Q6H PRN PRN 7 Days #20 tablet PRN Reason: Severe Pain (-03/16) Docusate Sodium [Colace] 100 mg PO BID PRN PRN #60 capsule PRN Reason: Constipation Ferrous Sulfate 325 mg PO BIDCM #60 tablet Ibuprofen 600 mg PO TID PRN #30 tablet PRN Reason: Pain Primary Care Physician: Care Physician,No Primary [Primary Care Provider] - Please Follow Up With: Mago Zapata MD - Post-op visit When: 7-10 days Medical Necessity - Tobacco Use Smoking Status: Never smoker Meaningful Use Info Meaningful Use Diagnoses (Choose all that apply): None applicable
--- NOTE | 2018-05-03 08:15 | PCM.OPRPT ---
Problem List (1) Skin tag Status: Chronic Comment: Right groin Report of Operation Date of Procedure: 05/02/18 Pre-Operative Diagnosis: Skin tag Post-Operative Diagnosis: Skin tag Surgery/Procedure Performed:: Skin tag excision Description of Surgical Findings:: Hyperpigmented skin tag Type of Anesthesia:: Spinal Anesthesiologist: Lucien Tabor Specimen's removed: skin tag Estimated Blood Loss (mL): <1 Fluids Replaced: 0 Description of Procedure: Patient had this procedure performed in tandem with her scheduled section. Following administration of the spinal anesthetic she was placed into dorsal's supine position and legs flexed. Right groin was prepped and draped in sterile fashion. Timeout was performed. The skin tag was grasped using an Allis clamp and excised using a scalpel. The skin tag was sent to pathology. The base of the skin tag was extremely small thus the excisional edges were reapproximated using Steri-Strips. A 4 x 4 and an OpSite dressing were placed over the excisional wound. Patient tolerated the procedure well. EBL was less than 1 mL. I subsequently proceeded with her scheduled section. See op note. - Complications None - Admit VTE Documentation VTE Present on Admission: No VTE Mechan Device Prophylaxis: SCD's VTE Pharm Prophylaxis ordered?: No
--- NOTE | 2018-05-03 08:29 | PCM.HP.OB ---
- Problem List (1) Positive GBS test Status: Acute (2) History of shoulder dystocia in prior , currently in third trimester Status: Inactive Comment: plan primary cs due to EFW more than child with SD and fetus is breech (3) Breech presentation Status: Acute Qualifiers: Fetus number: single or unspecified fetus Comment: vince breech (4) Gestational diabetes mellitus (GDM) Status: Acute Qualifiers: Gestational diabetes mellitus control: diet-controlled Trimester: third trimester Qualified Code(s): O24.410 - Gestational diabetes mellitus in , diet controlled (5) Pyelectasis of fetus on ultrasound Status: Acute Comment: Infant transferred to [facility] for possible urinary obstruction on DOL1. (6) Rh negative status during Status: Acute Qualifiers: Comment: rhogam prn and at 28 weeks History Date of Admission: 05/02/18 Final ELOISA: 05/09/18 Final ELOISA Source: US <20 weeks Gestational age: 39 Weeks and 0 Days History of this : This is a 27 year-old, G [5], P [1123], at 39 weeks gestational age presents for scheduled section for breech presentation. complicated by GDMA1, bilateral hydronephrosis. Patient had prior shoulder dystocia during first vaginal delivery. She also requests removal of right groin skin tag today due to location which interferes with clothing. Medical History: Medical History (Last Reviewed 04/26/18 @ 08:56 by Shelly Daniels) Ectopic O00.90 Gestational diabetes O24.419 Allergies No Known Allergies Allergy (Verified 05/02/18 10:48) Home Medications: Home Medications Vit No.130/Iron/FA [ Tablet] 1 ea PO DAILY 10/22/15 Smoking Status: Never smoker Alcohol: None Number of Fetus(es): 1 Heart Tracin bpm History Past Pregnancies: Past Pregnancies Delivery Date Name GA/Weeks Outcome Route Weight Gender Labor Length Anesthesia Delivery Location Provider FOB Labs: Labs 05/02/18 05/03/18 10:15 05:10 WBC 6.1 6.5 RBC 4.54 3.36 L Hgb 12.7 9.2 L Hct 38.4 29.0 L MCV 84.6 86.3 MCH 28.0 27.4 MCHC 33.1 31.7 L RDW 13.2 13.2 RDW Differential 40.2 39.9 Plt Count 200 156 MPV 11.2 10.9 Immature Gran % (Auto) 0.000 Neut % (Auto) 71.1 H Lymph % (Auto) 22.1 [place] % (Auto) 5.5 Eos % (Auto) 1.0 Baso % (Auto) 0.3 Absolute Neuts (auto) 4.4 Absolute Lymphs (auto) 1.36 Total Counted Not Reportable Mom's Problem List Problem Status Onset Code Skin tag Chronic L91.8 delivery delivered Acute O82 Breech presentation Acute O32.1XX0 Gestational diabetes mellitus (GDM) Acute O24.419 Mom's Labs & Results 05/02/18 05/02/18 05/02/18 10:15 10:15 10:15 WBC 6.1 RBC 4.54 Hgb 12.7 Hct 38.4 MCV 84.6 MCH 28.0 MCHC 33.1 RDW 13.2 RDW Differential 40.2 Plt Count 200 MPV 11.2 Immature Gran % (Auto) 0.000 Neut % (Auto) 71.1 H Lymph % (Auto) 22.1 [place] % (Auto) 5.5 Eos % (Auto) 1.0 Baso % (Auto) 0.3 Absolute Neuts (auto) 4.4 Absolute Lymphs (auto) 1.36 Total Counted Not Reportable POC Glucose Blood Type A NEGATIVE Antibody Screen TNP NEGATIVE 05/02/18 05/02/18 05/03/18 11:10 15:28 05:10 WBC 6.5 RBC 3.36 L Hgb 9.2 L Hct 29.0 L MCV 86.3 MCH 27.4 MCHC 31.7 L RDW 13.2 RDW Differential 39.9 Plt Count 156 MPV 10.9 Immature Gran % (Auto) Neut % (Auto) Lymph % (Auto) [place] % (Auto) Eos % (Auto) Baso % (Auto) Absolute Neuts (auto) Absolute Lymphs (auto) Total Counted POC Glucose 71 73 Blood Type Antibody Screen 05/03/18 05:11 WBC RBC Hgb Hct MCV MCH MCHC RDW RDW Differential Plt Count MPV Immature Gran % (Auto) Neut % (Auto) Lymph % (Auto) [place] % (Auto) Eos % (Auto) Baso % (Auto) Absolute Neuts (auto) Absolute Lymphs (auto) Total Counted POC Glucose 89 Blood Type Antibody Screen Course Did the patient receive Yes care? Labs Blood Type: A RH: NEGATIVE RPR/VDRL/Syphilis Nonreactive Rubella status Immune HbSAg Negative Date Done: 10/29/17 Chlamydia Negative Gonorrhea Negative HIV/AIDS Non-Reactive Group B Strep: Positive Current Obstetrical History Gestational Diabetes Yes: diet controlled Incompetent Cervix No Infertility No IUGR No Macrosomia No Hypertension/Pre-eclampsia No Placenta Previa/Abruption No PTL/PROM No Uterine anomaly No Oligohydramnios No Polyhydramnios No Multiple gestation No Past Medical History Asthma No Diabetes No Hypertension No Heart disease No Mitral valve prolapse No Neurologic/Seizure disorder/ No Migraines Kidney disease No Liver disease No Varicosities No Clotting disorders/Hx of DVT No Thyroid Dysfunction No Other medical diseases No Psychiatric disorders No Major trauma No Abnormal PAP smear No Sleep apnea No Mammogram in the last 2 years No Social History Marital Status: Alleged father Brayan Terrell Hx Smoking No Smoking Status Never smoker How long have you used n/a substances (years)? What date/time did you last n/a use any of the above? Have you had any previous n/a inpatient or outpatient treatment Expected Infant Delivery Method: Scheduled Section Describe any other labor & delivery plans:: Declines LARC, tubal Review of Systems Constitutional: Denies: Anorexia Cardiovascular: Denies: Chest Pain Respiratory: Denies: Shortness of Breath Gastrointestinal: Denies: Abdominal Pain, Nausea, Vomiting Gynecological: Reports: - - No leaking of fluid.. Denies: Vaginal bleeding Physical Exam Vitals: Vital Signs Temp Pulse Resp BP Pulse Ox 97.8 F 87 16 112/63 97 05/03/18 07:38 05/03/18 07:38 05/03/18 07:38 05/03/18 07:38 05/03/18 07:38 General: Alert, Oriented x3, Cooperative, No apparent distress HEENT: Atraumatic, Normocephalic Cardiovascular: Regular rate, Regular Rhythm Lungs: Normal air movement Abdomen: Soft, Non Tender, Gravid Neurological: Neuro grossly intact [employer]: Normal external genitalia Estimated gestational size: Appropriate for gestational size Presentation: Breech Assessment/Plan All Active Problems (Last Reviewed 04/26/18 @ 08:56 by Shelly Daniels) delivery delivered (Acute) Positive GBS test (Acute) Breech presentation (Acute) Gestational diabetes mellitus (GDM) (Acute) Unspecified contraceptive management (Acute) Abnormal glucose affecting (Acute) Pyelectasis of fetus on ultrasound (Acute) History of gestational diabetes in prior , currently (Acute) Supervision of normal (Acute) Rh negative status during (Acute) Polyhydramnios affecting (Resolved) 27yo @ 39wga for scheduled section. -Bedside US confirms breech presentation -am FS 70s -Consents signed and discussed r/b/i/a section. Patient desires to proceed. -r/bi/a skin tag removal discussed, consents signed. -Proceed as planned.
[2018-05-03] MEDS: Prenatal Vits Tablet 1 TABLET PO (11:52)
--- NOTE | 2018-05-03 14:04 | NURSING ---
breast pump given , as covered by insurance. Reviewed pumping instructions. Mother going to be with baby in [facility]
== END 2018-05-03 14:30 | disposition home or self-care (01) | DRG 540 ==
PROVIDERS: Obstetrics & Gynecology; Admitting Provider Obstetrics & Gynecology; Referring Provider Obstetrics & Gynecology; Visit Provider Obstetrics & Gynecology
PROC: (CPT 59514; principal; 2018-05-02 11:45)
DX: O32.1XX0 Maternal care for breech presentation, not applicable or unspecified (principal); Z3A.39 39 weeks gestation of pregnancy; Z37.0 Single live birth; O24.420 Gestational diabetes mellitus in childbirth, diet controlled; O35.8XX0 Maternal care for other (suspected) fetal abnormality and damage, not applicable or unspecified; O99.824 Streptococcus B carrier state complicating childbirth; Z67.91 Unspecified blood type, Rh negative; L91.8 Other hypertrophic disorders of the skin
CPT/HCPCS: 82962; 85025; 85027; 86850; 86900; 88304; 90384; 99218; J7120; A4216; G0378; J2790

== ENCOUNTER → 2018-06-16 17:56 | Outpatient (CLI) | payer MEDICAID, SELFPAY ==
[2018-06-16 16:28] VITALS: BMI 36.1
[2018-06-21 08:59] LABS: HPV Reflexed? NOT INDICATED
== END ==
PROVIDERS: Visit Provider Obstetrics & Gynecology
DX: Z12.4 Encounter for screening for malignant neoplasm of cervix (principal)
CPT/HCPCS: 87624; 88175; G0145

== ENCOUNTER → 2018-06-30 09:09 | Outpatient (CLI) | payer MEDICAID, SELFPAY ==
[2018-06-16 16:28] VITALS: BMI 36.1
--- NOTE | 2018-06-30 09:11 | US_ITS ---
STUDY: THYROID ULTRASOUND REASON FOR EXAM: Female, 27 years old. Thyromegaly TECHNIQUE: Ultrasound evaluation of the thyroid was performed with real-time and static richey-scale imaging. COMPARISON: None. FINDINGS: RIGHT LOBE: The right lobe of the thyroid gland measures 5.0 x 1.9 x 1.6 cm. There is a homogeneous echotexture. There are no demonstrated solid, cystic or complex lesions. LEFT LOBE: The left lobe of the thyroid gland measures 4.2 x 1.8 x 1.4 cm. There is a homogeneous echotexture. There are no demonstrated solid, cystic or complex lesions. ISTHMUS: The isthmus measures 2 mm . The regional lymph nodes are normal. US/Thyroid IMPRESSION: Normal ultrasound examination of the thyroid. Electronically Signed: Rajiv Nickerson MD at 22:45 EST Tel , Service support ,
== END ==
PROVIDERS: Referring Provider Obstetrics & Gynecology; Visit Provider Obstetrics & Gynecology
DX: E01.0 Iodine-deficiency related diffuse (endemic) goiter (principal)
CPT/HCPCS: 76536

== ENCOUNTER 2021-08-10 06:54 | Emergency (ER) | payer MEDICAID, SELFPAY ==
[2021-08-10 06:55] VITALS: BP 142/90; PULSE 68; RESP 16; TEMP 36.7; O2SAT 99; BMI 37.4
--- NOTE | 2021-08-10 07:06 | EDS_ITS ---
HPI HPI - GI History of Present Illness Chief Complaint: Abd Pain Narrative Narrative: Patient Isaac with right lower quadrant abdominal pain that began suddenly this morning. She states it woke her from sleep a few hours ago. She is nauseated but has not vomited. She denies any diarrhea. No dysuria or hematuria. She has subjective fever but no shaking chills or rigors. Pain is worse with movement. She thought that maybe she just had some cramping, but is worse with standing and walking. Past surgical history includes and laparoscopic removal of ectopic . She has an IUD in place. She presents because of the right lower quadrant but more right pelvic pain. She states yesterday she did not feel well and had random nausea with a slight headache. She took medication and that resolved. [facility] Medical History (Updated 08/10/21 @ 10:22 by Luigi Malone MD) Ectopic Gestational diabetes Home Medications levonorgestrel 20.1 mcg/24 hrs (6 yrs) 52 mg intrauterine device 1 device INTRAUTERINE ONCE 08/15/18 [History Last Taken Unknown] cyclobenzaprine 10 mg PO TID PRN #20 tab 08/10/21 [Rx Last Taken Unknown] naproxen [Naprosyn] 500 mg PO BID PRN #20 tab 08/10/21 [Rx Last Taken Unknown] Allergy/AdvReac Type Severity Reaction Status Date / Time No Known Allergies Allergy Verified 08/15/18 13:37 Family History Mother Diabetes Surgical History H/O section Social History Smoking Status: Never smoker alcohol intake: never substance use type: does not use caffeine: Yes what type of physical activity do you participate in: walking seatbelt use: always do you feel safe at home: Yes additional social history: Brayan- [employer] [facility] at [employer] ROS ROS ED ROS Narrative Constitutional: Subjective fever/feels warm, no chills. HEENT: No sore throat. No neck pain. No loss of vision. No rhinorrhea. Cardiovascular: No chest pain. No palpitations. No pedal edema. Respiratory: No cough, no shortness of breath. Abdominal: Right lower quadrant to right pelvic abdominal pain. Positive nausea. No vomiting. Genitourinary: No dysuria. No hematuria. Musculoskeletal: No myalgias. No arthralgias. Neurologic: No headaches. No dizziness. No lightheadedness. Skin: No rash. No change in color. Psychiatric: No depression. No anxiety. EXAM Physical Exam Narrative Exam Narrative: Afebrile. Vital signs noted. HEENT: Normocephalic. Atraumatic. PERRL, EOMI. Neck soft and supple. No point tenderness or step off. Cardiovascular: Regular rate and rhythm. No murmurs, rubs, or gallops appreciated. Respiratory: No tachypnea. Lungs clear to auscultation bilaterally. Gastrointestinal: Abdomen soft, mild tenderness to palpation in right lower qu adrant to right pelvis, with normoactive bowel sounds. No rebound or guarding. Neurological: Awake. Alert. Nonfocal, nonlateralizing. Skin: No rash. Normal color. No pallor. Musculoskeletal: No pedal edema. Full range of motion extremities. Const Vital Signs: 08/10/21 06:55 08/10/21 08:24 Temperature 98.1 F Temperature Source Oral Pulse Rate 68 78 Respiratory Rate 16 16 Blood Pressure 142/90 H 131/70 H Blood Pressure Mean 107 90 Pulse Ox 99 98 Oxygen Delivery Method Room Air Room Air MDM MDM MDM Narrative Medical decision making narrative: In the differential diagnosis is ovarian cyst versus appendicitis versus ureterolithiasis. Comprehensive work-up was pursued. She was administered a bolus of normal saline intravenously along with morphine and ondansetron. Patient has no white count 6.4, hemoglobin stable at 14.8. Normal platelet count of 236. Her electrolyte panel is grossly unremarkable except for slightly elevated chloride of 110. Normal creatinine of 0.8. Glucose appropriately elevated at 142 with a low anion gap of 2. Lipase is normal at 140. Serum is negative. She has slightly elevated ALT of 68 which I think is nonspecific. While awaiting CT scan results, patient required an additional dose of morphine. Her abdomen remains soft. Her CT of the abdomen and pelvis shows no acute process. Appendix was visualized and appears normal. Patient states that she has having pain in her back radiating down her leg. Her symptoms of abdominal pain from which she originally presented may be related to lumbar radiculopathy. She was administered Toradol for analgesia. She was also given a shot of Norflex. At approximately 10:20 AM, she is resting comfortably, laying on her left side. She states she was having right-sided paraspinal back pain that has improved with medication. At this point in time, I do feel that she is having more of a lumbar radiculopathy. She was told that she may need outpatient physical therapy and imaging. She will follow up with her primary care physician. I wrote her prescriptions for cyclobenzaprine and naproxen. I feel she be discharged safely home with follow-up. There are no red flag signs for cauda equina. I do not feel that emergent MRI is indicated. Return instructions reviewed. Disposition is discharged home in stable condition. Lab Data Attestation: I reviewed the patient's lab results. Labs: Laboratory Results - last 24 hr 08/10/21 08/10/21 08/10/21 07:20 07:20 07:20 WBC 6.4 RBC 4.88 Hgb 14.8 Hct 42.7 MCV 87.5 MCH 30.3 MCHC 34.7 RDW Std Deviation 37.9 RDW Coeff of Bill 11.9 Plt Count 236 MPV 10.0 Immature Gran % (Auto) 0.300 Neut % (Auto) 53.4 Lymph % (Auto) 36.2 [place] % (Auto) 5.0 Eos % (Auto) 4.5 Baso % (Auto) 0.6 Absolute Neuts (auto) 3.4 Absolute Lymphs (auto) 2.33 Nucleated RBC % 0 Sodium 140 Potassium 3.9 Chloride 110 H Carbon Dioxide 28.0 Anion Gap 2 L BUN 9 Creatinine 0.80 Estim Creat Clear Calc 90.84 Est GFR (MDRD) Af Amer 106 Est GFR (MDRD) Non-Af 88 BUN/Creatinine Ratio 11.2 Glucose 142 H Calcium 8.8 Total Bilirubin 0.30 AST 31 ALT 68 H Alkaline Phosphatase 54 Total Protein 7.0 Albumin 3.6 Globulin 3.4 Albumin/Globulin Ratio 1.1 Lipase 140 Serum , Qual NEGATIVE Urine Color Urine Clarity Urine pH Ur Specific [place] Urine Protein Urine Glucose (UA) Urine Ketones Urine Occult Blood Urine Nitrite Urine Bilirubin Urine Urobilinogen Ur Leukocyte Esterase Urine RBC Urine WBC Ur Squamous Epith Cells Urine Bacteria Urine Mucus 08/10/21 08:15 WBC RBC Hgb Hct MCV MCH MCHC RDW Std Deviation RDW Coeff of Bill Plt Count MPV Immature Gran % (Auto) Neut % (Auto) Lymph % (Auto) [place] % (Auto) Eos % (Auto) Baso % (Auto) Absolute Neuts (auto) Absolute Lymphs (auto) Nucleated RBC % Sodium Potassium Chloride Carbon Dioxide Anion Gap BUN Creatinine Estim Creat Clear Calc Est GFR (MDRD) Af Amer Est GFR (MDRD) Non-Af BUN/Creatinine Ratio Glucose Calcium Total Bilirubin AST ALT Alkaline Phosphatase Total Protein Albumin Globulin Albumin/Globulin Ratio Lipase Serum , Qual Urine Color Yellow Urine Clarity Clear Urine pH 5.0 Ur Specific [place] 1.025 Urine Protein 15 H Urine Glucose (UA) Normal Urine Ketones 5 H Urine Occult Blood Negative Urine Nitrite Negative Urine Bilirubin Negative Urine Urobilinogen Normal Ur Leukocyte Esterase 100 H Urine RBC 0 SEEN Urine WBC 0-5 SEEN Ur Squamous Epith Cells 0-5 SEEN Urine Bacteria 1+ Urine Mucus 0 SEEN Radiography Diagnostic Testing: Clinical Impression(s) from Imaging Studies Abdomen/Pelvis CT 08/10/21 07:06 IMPRESSION: No acute abnormality. Cholelithiasis. Electronically Signed: Jack Gramajo MD at 8:20 EST , Discharge Plan Triage Chief Complaint: Abd Pain ED Provider: Luigi Malone Dx/Rx/DC Orders Clinical Impression: Abdominal pain, Lumbar back pain with radiculopathy affecting right lower extremity Instructions: ED Abdominal Pain Unkn Cause Fem, ED Back Exercises, Lumbar, ED Back Pain (Acute or Chronic), ED Sciatica Prescriptions: New naproxen [Naprosyn] 500 mg tablet 500 mg PO BID PRN (Reason: pain) Qty: 20 RF: 0 cyclobenzaprine 10 mg tablet 10 mg PO TID PRN (Reason: muscle spasm) Qty: 20 RF: 0 No Action Liletta 19.5 mcg/24 hour (4 years) intrauterine device 1 device Intrauterine ONCE RF: 0 Primary Care Provider: Olimpia Ward Referrals: Olimpia Ward MD [Primary Care Provider] - 1-2 Days if not improving Disposition Disposition: Home, Self Care
--- NOTE | 2021-08-10 07:06 | CT_ITS ---
STUDY: CT ABDOMEN AND PELVIS WITH CONTRAST REASON FOR EXAM: Female, 30 years old. RLQ pain RADIATION DOSAGE (If Supplied By Facility): CTDIvol = ( 14.88 ) mGy, DLP = ( 1221.17 ) mGycm TECHNIQUE: Transaxial images were obtained from the dome of the diaphragm to the symphysis pubis without oral contrast. IV 100mL Isovue-300 was administered. Sagittal and coronal images were reconstructed. Individualized dose optimization techniques were used for this CT. COMPARISON: None. FINDINGS: The visualized lung bases are unremarkable. The visualized portions of the heart are within normal limits. Normal liver. There are multiple gallstones. Normal spleen. Normal pancreas. Normal bilateral adrenal glands. Normal right kidney. Normal left kidney. Normal visualized stomach. Normal small intestine. Normal colon. The appendix is visualized and appears normal. Normal abdominal aorta. Normal inferior vena cava. Normal retroperitoneum. Normal urinary bladder. Intrauterine device within the uterus. Normal abdominal wall. Normal osseous structures. CT/Abdomen/Pelvis W IV Cont ONLY IMPRESSION: No acute abnormality. Cholelithiasis. Electronically Signed: Jack Gramajo MD at 8:20 EST ,
[2021-08-10] MEDS: Morphine 4 MG/ML Syringe IV ×2 (07:32→07:53)
[2021-08-10] MEDS: 0.9% Normal Saline 1,000 ML 1000 ML IV (07:32)
[2021-08-10] MEDS: Ondansetron 4 MG/2 ML Vial IV (07:32)
[2021-08-10 07:38] LABS: Absolute Lymphocyte Count 2.33 X10^3/uL (0.83-4.51); Absolute Neutrophil Count 3.4 X10^3/uL (2.0-7.7); Basophil# 0.04 X10^3/uL; Basophil% 0.6 % (0-1); Eosinophil# 0.29 X10^3/uL; Eosinophils% 4.5 % (0-5); Hematocrit 42.7 % (37-47); Hemoglobin 14.8 g/dL (12.0-15.0); Lymphocyte # 2.33 X10^3/ul (0.83-4.51); Lymphocyte % 36.2 % (19-41); Mean Corp Hgb Conc 34.7 g/dL (32-36); Mean Corpuscular Hgb 30.3 pg (27.0-32.0); Mean Corpuscular Volume 87.5 fL (81-99); Monocyte# 0.32 X10^3/uL; NRBC Flagged by Analyzer 0 % (0-5); Neutrophil # 3.43 X10^3/uL (2.7-7.7); Neutrophil % 53.4 % (47-70); Platelet Count 236 K/mm3 (150-450); RBC Distribution Width CV 11.9 % (11.6-14.6); RBC Distribution Width SD 37.9 fl (35.1-43.9); Red Blood Count 4.88 M/mm3 (4.2-5.4); White Blood Count 6.4 K/mm3 (4.4-11.0)
[2021-08-10 07:44] LABS: Internal QC Validated? YES +Cl - CLEAR BKGD; Pregnancy, Serum, hCG Quali. NEGATIVE Negative
[2021-08-10 07:51] LABS: ALB/GLOB Ratio 1.1 RATIO (0.9-2.4); AST(SGOT) 31 U/L (15-37); Alanine Aminotransfer ALT/SGPT 68 U/L (13-56); Albumin, Serum 3.6 g/dL (3.2-5.0); Alkaline Phosphatase 54 U/L (45-117); Anion Gap 2 (5-15); BUN 9 mg/dL (7-18); BUN/Creat Ratio 11.2 RATIO (10-20); Calcium,Total 8.8 mg/dL (8.5-10.1); Chloride 110 mmol/L (98-107); EST Glomerular Filtration Rate 88 mL/min (>60); Est Glom Filt Rate - Afr Amer 106 mL/min (>60); Estimated Creatinine Clearance 90.84 ml/min; Globulin 3.4 g/dL (2.2-4.2); Glucose 142 mg/dL (74-106); Lipase 140 U/L (73-393); Potassium 3.9 mmol/L (3.5-5.1); Sodium Level 140 mmol/L (136-145)
[2021-08-10 08:24] VITALS: BP 131/70; PULSE 78; RESP 16; O2SAT 98
[2021-08-10 08:25] LABS: Color, Urine Yellow (Yellow); Glucose, Dipstick Normal (Normal); Ketone-Dipstick 5 mg/dl (Negative); Leukocyte Esterase-Dipstick 100 /ul (Negative); Mucous, Urine 0 SEEN /hpf (<or=2+); Nitrite-Dipstick Negative (Negative); Occult Blood-Urine Negative /ul (Negative); Protein-Dipstick 15 mg/dl (Negative); Red Blood Cells-Urine 0 SEEN /hpf (0-5); Specific Gravity, Urine 1.025 (1.002-1.030); Urine Bilirubin Dipstick Negative (Negative); Urine Clarity Clear (Clear); Urine Urobilinogen Normal (Normal)
[2021-08-10 08:32] LABS: Squamous Epithelial Cells - UA 0-5 SEEN /hpf (5-10); White Blood Cells 0-5 SEEN /hpf (0-5)
[2021-08-10 08:33] LABS: Bacteria 1+ /hpf (None Seen)
[2021-08-10] MEDS: Ketorolac 30 MG/ML Syringe IV (08:37)
[2021-08-10] MEDS: Orphenadrine 60 MG/2 ML Ampul IM (08:57)
[2021-08-10 10:33] VITALS: BP 122/70; PULSE 70; RESP 16; O2SAT 95
== END 2021-08-10 10:35 | disposition home or self-care (01) ==
PROVIDERS: Emergency Provider Emergency Medicine; PCP Internal Medicine; Visit Provider Emergency Medicine
DX: R10.31 Right lower quadrant pain (principal); M54.16 Radiculopathy, lumbar region; R10.2 Pelvic and perineal pain; R11.0 Nausea; M54.50 Low back pain, unspecified; Z97.5 Presence of (intrauterine) contraceptive device
CPT/HCPCS: 74177; 80053; 81001; 83690; 84703; 85025; 96361; 96372; 96374; 96375; 99283; J7030; Q9967; A4216; J2405

== ENCOUNTER → 2022-07-01 | Outpatient (CLI) | payer MEDICAID, SELFPAY ==
[2022-07-07 20:33] LABS: HPV APTIMA, High Risk Negative (Negative)
== END | disposition home or self-care (01) ==
LOC: LABSPEC 12:38
PROVIDERS: PCP Internal Medicine; Referring Provider Nurse Practitioner Women's Health; Visit Provider Nurse Practitioner Women's Health
DX: Z12.4 Encounter for screening for malignant neoplasm of cervix (principal)
CPT/HCPCS: 87624; 88175; G0145

== ENCOUNTER → 2022-07-03 | Outpatient (CLI) | payer MEDICAID, SELFPAY ==
[2022-07-03 09:58] LABS: Hemoglobin A1c 5.5 % (3.8-5.6)
[2022-07-03 10:11] LABS: Vitamin D,25 Hydroxy 19.1 ng/mL
[2022-07-03 14:54] LABS: ALB/GLOB Ratio 1.1 RATIO (0.9-2.4); AST(SGOT) 22 U/L (15-37); Alanine Aminotransfer ALT/SGPT 54 U/L (13-56); Albumin, Serum 3.9 g/dL (3.2-5.0); Alkaline Phosphatase 56 U/L (45-117); Anion Gap 6 (5-15); BUN 9 mg/dL (7-18); BUN/Creat Ratio 12.4 RATIO (10-20); Calcium,Total 8.7 mg/dL (8.5-10.1); Chloride 108 mmol/L (98-107); Cholesterol 112 mg/dL (200); Creatinine, Serum 0.73 mg/dL (0.55-1.02); EST Glomerular Filtration Rate 98 mL/min (>60); Est Glom Filt Rate - Afr Amer 118 mL/min (>60); Globulin 3.7 g/dL (2.2-4.2); Glucose 96 mg/dL (74-106); High Density Lipoprotein 45 mg/dL; Potassium 3.8 mmol/L (3.5-5.1); Prolactin 6.1 ng/mL; Protein, Total 7.6 g/dL (6.4-8.2); Sodium Level 141 mmol/L (136-145); Thyroid Stim Hormone (TSH) 1.66 uIU/mL (0.358-3.74); Triglycerides 96 mg/dL; Very Low Density Lipoprotein 19 mg/dL (5-40)
[2022-07-08 21:34] LABS: Testosterone Free 3.5 pg/mL (0.0-4.2)
== END | disposition home or self-care (01) ==
LOC: PAVLAB 09:24
PROVIDERS: PCP Internal Medicine; Referring Provider Nurse Practitioner Women's Health; Visit Provider Nurse Practitioner Women's Health
DX: L68.0 Hirsutism (principal); R63.5 Abnormal weight gain; Z13.21 Encounter for screening for nutritional disorder; Z13.1 Encounter for screening for diabetes mellitus
CPT/HCPCS: 36415; 80053; 80061; 82306; 82627; 83036; 84146; 84402; 84443; 82626

== ENCOUNTER 2022-08-03 19:42 | Inpatient (IN) | payer MEDICAID, SELFPAY ==
[2022-08-03 19:43] VITALS: BP 123/66; PULSE 93; RESP 16; TEMP 36.7; O2SAT 96; BMI 41.1
--- NOTE | 2022-08-03 19:44 | ED.VIS.LOWEX ---
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 She was carrying things when she lost her balance. She states her ankle looked deformed. She did not attempt to get up. She denies paresthesia, anesthesia or motor weakness. Onset/Context/Timing Onset: Hours Context: Sudden Onset Timing: Continuous Quality of Pain: Dull and Aching Location: Right ankle Current Severity: Mild Maximum Severity: Severe Worsened by: Injury and movement Relieved by: 100 mcg of fentanyl x2 Associated Symptoms Associated Symptoms: Positive for Loss of Funtion; Negative for Parasthesia or Weakness Narrative Narrative: Patient was walking on steps lost her balance. She injured her right ankle. She denies head trauma. She denies loss of conscious. She denies neck pain. Denies paresthesia, anesthesia Medicus present time the fall. She denies upper or lower back pain. She denies pelvic pain. Patient has an IUD in place. Patient does not recall last menses. Patient does not voice symptoms of . Patient is on medicine for ADHD. She is on no antithrombotic or anticoagulant. Patient has history of hirsutism. Tetanus Immunization: Unknown Prior similar symptoms: No Recent Illness/Hospitalization: No PFSH PFSH Medical History Ectopic Gestational diabetes Home Medications levonorgestrel 20.4 mcg/24 hrs (8 yrs) 52 mg intrauterine device (Liletta) 1 device intrauterine ONCE BIRTHCONTROL 08/15/18 [History Last Taken 08/03/22] methylphenidate HCl 10 mg tablet 10 mg PO BID ADHD 08/03/22 [History Last Taken 3 Days Ago ~07/31/22] Allergy/AdvReac Type Severity Reaction Status Date / Time No Known Allergies Allergy Verified 07/01/22 10:29 Family History Mother Diabetes Surgical History H/O section Social History Smoking Status: Never smoker alcohol intake: never substance use type: does not use caffeine: Yes what type of physical activity do you participate in: walking seatbelt use: always do you feel safe at home: Yes 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 Constitutional Constitutional ED: Denies chills, fever(s), subjective, sweats or weight loss Eyes Eyes: Denies blurry vision, change in vision or diplopia Cardiovascular Cardiovascular: Denies chest pain or palpitations Respiratory/Chest Respiratory/Chest: Denies cough or dyspnea Gastrointestinal Gastrointestinal: Denies abdominal pain, nausea or vomiting Musculoskeletal Musculoskeletal: Reports other Details: Per HPI narrative ; Denies arthralgias, back pain, myalgias or neck pain Integumentary Reports Abrasions; Denies rash Neurologic Neurologic: Denies headache(s) or paresthesias Hematologic/Lymphatic Hematologic/Lymphatic: Denies easy bleeding or easy bruising EXAM Physical Exam Const Vital Signs: 08/03/22 19:43 08/03/22 20:35 Temperature 98.1 F 98.1 F Temperature Source Oral Oral Pulse Rate 93 92 Respiratory Rate 16 18 Blood Pressure 123/66 H 133/76 H Blood Pressure Mean 85 95 Pulse Ox 96 100 Oxygen Delivery Method Room Air Room Air Positive well nourished, well developed and obese General Appearance ED: well developed and NAD Nutritional Appearance: obese HEENT Reports moist mucous membranes HEENT Narrative: There is no trauma to the ears. There is no trauma to the nose. There is no septal deviation hematoma. There is no dental trauma. normocephalic and atraumatic Eyes Eyes Narrative: Pulls are equal round reactive to light. Extraocular muscles are intact. There is no subconjunctival hemorrhage. There is no step-off of the infraorbital rim. Neck full ROM and supple Resp normal respiratory effort, no retractions and clear to auscultation bilaterally Cardio regular rate, regular rhythm, S1 normal heart sound, S2 normal heart sound and no murmurs GI non-tender, non-distended and no masses Back/Spine no CVA tenderness Thoracic Spine / Upper Back: Negative for thoracic spinal tenderness Lumbar Spine / Lower Back: Negative for lumbar spinal tenderness Extremity Negative for normal to inspection or full ROM Extremity Narrative: There is deformity of the right ankle. DP and PT pulse are palpable. General Extremety ED: Negative for cyanosis or edema General Extremity: Negative for cyanosis or edema Neuro oriented x3, CN's II-XII intact bilaterally, moves all extremities and no sensory deficits noted Psych mental status grossly normal Skin Skin Narrative: Abrasion anterior distal right leg above the ankle joint Trauma: abrasion MDM MDM MDM Narrative Medical decision making narrative: Patient has obvious deformity to the right ankle. X-ray was obtained to determine extent of injury. We will discuss case with podiatry once x-rays are available for review. Tetanus was updated. IV was established. If patient needs more pain medicine will order IV Dilaudid. Lab Data Attestation: I reviewed the patient's lab results. Lab results narrative: CBC is normal. Basic metabolic panel is unremarkable. Glucose is slightly elevated 120. test is pending. Labs: Laboratory Results - last 24 hr 08/03/22 08/03/22 20:41 20:41 WBC 10.1 RBC 4.63 Hgb 14.0 Hct 41.4 MCV 89.4 MCH 30.2 MCHC 33.8 RDW Std Deviation 38.4 RDW Coeff of Bill 11.9 Plt Count 257 MPV 9.9 Immature Gran % (Auto) 0.300 Neut % (Auto) 64.7 Lymph % (Auto) 27.2 Wells % (Auto) 4.3 Eos % (Auto) 3.1 Baso % (Auto) 0.4 Absolute Neuts (auto) 6.6 Absolute Lymphs (auto) 2.76 Nucleated RBC % 0 Sodium 140 Potassium 3.8 Chloride 108 H Carbon Dioxide 26.0 Anion Gap 6 BUN 17 Creatinine 0.88 Estim Creat Clear Calc 78.52 Est GFR (MDRD) Af Amer 95 Est GFR (MDRD) Non-Af 79 BUN/Creatinine Ratio 19.3 Glucose 120 H Calcium 9.2 Radiography X-Ray: Read by ED Physician (3 views of the right ankle were obtained. Patient has a medial malleolus fracture which is displaced, posterior malleolus fracture and a distal fibular fracture.) Diagnostic Testing: Clinical Impression(s) from Imaging Studies Ankle X-Ray 08/03/22 20:00 IMPRESSION: Trimalleolar fracture with anterior subluxation of the tibia on the talus. Electronically Signed: Haroon Sullivan MD at 20:17 EST , EKG Initial EKG: Attestation: I personally reviewed and interpreted this EKG as follows: Interpretation: Sinus Rhythm (Rate is 88. EKG is normal. [place] interval is 104 ms. QS duration 84 ms. QT duration 162 ms. [place] is normal.) Treatment and Re-Evaluation Narrative: Patient was administered Dilaudid for her pain. Will discuss case with podiatry. Patient will need ORIF. Will place in posterior and sugar-tong splint. Since patient is requiring significant out of pain medicine will discuss admission for surgical intervention tomorrow. Procedures Other Procedures Procedure(s): Patient was placed in a short leg plaster posterior splint and sugar-tong splint by me. This was fabricated using plaster. Patient tolerated the procedure. She did complain of pain. She was ordered additional dorsal morphine. Discharge Plan Dx/Rx/DC Orders Clinical Impression: Closed trimalleolar fracture of right ankle, Injury due to fall Disposition Disposition: Acute Care Hospital [facility]
--- NOTE | 2022-08-03 20:00 | RAD_ITS ---
INDICATION: Injury/Pain EXAMINATION/TECHNIQUE: X-RAY - RIGHT XR Ankle Min 3 Views 3 VIEWS COMPARISON: None. FINDINGS: SOFT TISSUES: No soft tissue swelling or gas. No radiopaque foreign body. BONES/JOINTS: Distal fibular diaphysis comminuted fracture with a butterfly fragment. Minimal displacement/angulation. Medial malleolus fracture with a medial cortical fragment. Mildly displaced posterior malleolus fracture. Soft tissue swelling about the fractures. Anterior subluxation of the tibia on the talus. Preservation of the joint space. RAD/Ankle min 3 Views IMPRESSION: Trimalleolar fracture with anterior subluxation of the tibia on the talus. Electronically Signed: Haroon Sullivan MD at 20:17 EST ,
--- NOTE | 2022-08-03 20:02 | EKG12_ITS ---
Test Reason : DYSRHYTHMIA Blood Pressure : / mmHG Vent. Rate : 084 BPM Atrial Rate : 084 BPM P-R Int : 154 ms QRS Dur : 084 ms QT Int : 362 ms P-R-T Axes : 013 064 034 degrees QTc Int : 427 ms Normal sinus rhythm Normal ECG Confirmed by RAMÓN SHEPARD, MANISHA ([id number]), copy editor CHARBEL RUSS ([id number]) on 08/05/2022 1:18:15 PM Referred By: DEREK Confirmed By:MANISHA MELGAR MD
[2022-08-03] MEDS: HYDROmorphone 0.5 MG/0.5 ML SYRINGE IV ×4 (20:29→23:14)
[2022-08-03] MEDS: Diphth,Pertuss(Acell),Tet Vac 0.5 ML Vial IM (20:29)
[2022-08-03 20:35] VITALS: BP 133/76; PULSE 92; RESP 18; TEMP 36.7; O2SAT 100
--- NOTE | 2022-08-03 20:35 | PCM.HP.STD ---
HPI - General General Date of Admission: 08/03/22 Date of Service: 08/03/22 Chief Complaint: Right ankle fracture HPI Narrative KARRIE CAMACHO, is a 31 F who presents to the [facility] ED following slipping off of her front porch steps while carrying objects. Patient states that her ankle slid under her as she inverted her foot. Patient states when she hit the ground she saw the ankle was deformed and no longer wanted to look at the site. She presented to the ED where radiographs were taken demonstrating trimalleolar fracture of the right ankle with likely syndesmotic instability. Patient was reduced in the ED and was placed into a posterior splint with sugar-tong casting. Past medical history is significant only for ADHD medication. Secondary to significant pain she is being admitted overnight for pain control with surgical intervention likely to follow. [facility] Medical History Ectopic Gestational diabetes Home Medications levonorgestrel 20.4 mcg/24 hrs (8 yrs) 52 mg intrauterine device (Liletta) 1 device intrauterine ONCE BIRTHCONTROL 08/15/18 [History Last Taken 08/03/22] methylphenidate HCl 10 mg tablet 10 mg PO BID ADHD 08/03/22 [History Last Taken 3 Days Ago ~07/31/22] Allergy/AdvReac Type Severity Reaction Status Date / Time No Known Allergies Allergy Verified 07/01/22 10:29 Family History Mother Diabetes Surgical History H/O section Social History Smoking Status: Never smoker alcohol intake: never substance use type: does not use caffeine: Yes what type of physical activity do you participate in: walking seatbelt use: always do you feel safe at home: Yes 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 Constitutional: Denies chills, fatigue, fever(s) or weakness Eyes Eyes: Denies blindness, burning or diplopia ENT HEENT: Denies dizziness, nasal congestion or sore throat Cardiovascular Cardiovascular: Denies chest pain, claudication, cold extremities or palpitations Respiratory/Chest Respiratory/Chest: Denies cough, dyspnea or shortness of breath at rest Gastrointestinal Gastrointestinal: Denies abdominal pain, constipation, diarrhea, hematochezia or vomiting Genitourinary Genitourinary: Denies dysuria, urinary frequency, urinary hesitancy, urinary incontinence or urinary urgency Musculoskeletal Musculoskeletal: Denies joint pain, joint stiffness or joint swelling Integumentary Integumentary: Denies jaundice, lesions, pruritus or rash Neurologic Neurologic: Denies confusion, dizziness, numbness or seizures Endocrine Endocrinology: Denies polydipsia, polyphagia or polyuria Hematologic/Lymphatic Hematologic/Lymphatic: Denies easy bleeding or easy bruising Allergic/Immunologic Allergic/Immunologic: Denies hives, urticaria or asthma Vital Signs Vital Signs Vital Signs: 08/03/22 19:43 Temperature 98.1 F Temperature Source Oral Pulse Rate 93 Respiratory Rate 16 Blood Pressure 123/66 H Blood Pressure Mean 85 Pulse Ox 96 Oxygen Delivery Method Room Air Weight Weight: 108.7 kg Body Mass Index (BMI) 41.1 Physical Exam Const alert, oriented x3 and no apparent distress General Appearance: cooperative HEENT normocephalic Eyes General Eye: normal appearance of both eyes Neck General: normal visual inspection Lymph Lymphatic: no lymphadenopathy noted and no lymphedema noted Resp normal respiratory effort Cardio regular rate and regular rhythm GI soft to palpation and non-tender Extremity normal capillary refill, no joint enlargement and no calf tenderness Extremity Narrative: Right lower extremity trimalleolar ankle fracture with posterior splint and sugar-tong cast intact to right lower extremity. Skin no rashes or lesions noted, skin turgor normal and no jaundice Neuro oriented x3 and moves all extremities Results Lab / Micro Data Result Diagrams: 08/03/22 20:41 08/03/22 20:41 Radiology Impression Ankle X-Ray 08/03/22 20:00 IMPRESSION: Trimalleolar fracture with anterior subluxation of the tibia on the talus. Electronically Signed: Haroon Sullivan MD at 20:17 EST , Assessment & Plan Assessment/Plan (1) Closed trimalleolar fracture of right ankle: (2) Injury due to fall: PLAN: Plan Patient seen and evaluated Patient fell off the front porch step inverting her ankle resulting in trimalleolar ankle fracture of the right lower extremity. Patient underwent reduction in ED and placed into a posterior splint with sugar-tong casting. Imaging was reviewed demonstrating trimalleolar ankle fracture of the right leg. Postreduction films also reviewed. Discussed with patient that secondary to her severe pain that she would be admitted for pain control and would need to undergo surgical fixation of the ankle. I discussed with the patient and her the planned surgical intervention for ORIF of the right ankle with possible syndesmotic repair. Preoperative indications, planned procedure, benefits, risk, anticipated healing time and management were reviewed. I discussed with the patient benefits of the surgical procedure as well as risks. I discussed the risks and complications include but are not limited to: pain, continued pain, complex regional pain syndrome, swelling, scarring, poor cosmetic result, need for further surgery, postoperative arthritis, symptomatic hardware, hardware failure, delayed or nonhealing, wound dehiscence, malunion/nonunion, infection, blood clot, allergic reaction, loss of limb, loss of function, or loss of life. The patient was able to repeat these back. The patient understands and elects proceed with surgery at this time. No guarantees were made. No promises were made. I answered all the patient's questions and 's questions. She will be nonweightbearing to the right lower extremity She is to elevate right lower extremity at all times for edema control CT ordered of the right lower extremity for evaluation of posterior malleoli fracture and for surgical planning. She is to be n.p.o. after midnight. Surgical consent will be obtained for ORIF of the right ankle with possible syndesmotic repair. Trying for surgical intervention to take place tomorrow, 08/04/2022. I will continue to follow while in house and in postoperative period. Please do not hesitate to call with any questions or concerns Jovani Wild Jr. Nabor.P.M. [facility] [phone]
[2022-08-03 20:48] LABS: Absolute Lymphocyte Count 2.76 X10^3/uL (0.83-4.51); Absolute Neutrophil Count 6.6 X10^3/uL (2.0-7.7); Basophil# 0.04 X10^3/uL; Basophil% 0.4 % (0-1); Eosinophil# 0.31 X10^3/uL; Eosinophils% 3.1 % (0-5); Hematocrit 41.4 % (37-47); Lymphocyte # 2.76 X10^3/ul (0.83-4.51); Lymphocyte % 27.2 % (19-41); Mean Corp Hgb Conc 33.8 g/dL (32-36); Mean Corpuscular Hgb 30.2 pg (27.0-32.0); Mean Corpuscular Volume 89.4 fL (81-99); Mean Platelet Vol. 9.9 fl (6.2-12.0); Monocyte# 0.44 X10^3/uL; Monocyte% 4.3 % (0-10); NRBC Flagged by Analyzer 0 % (0-5); Neutrophil # 6.55 X10^3/uL (2.7-7.7); Neutrophil % 64.7 % (47-70); Platelet Count 257 K/mm3 (150-450); RBC Distribution Width CV 11.9 % (11.6-14.6); RBC Distribution Width SD 38.4 fl (35.1-43.9); Red Blood Count 4.63 M/mm3 (4.2-5.4); White Blood Count 10.1 K/mm3 (4.4-11.0)
[2022-08-03 21:09] LABS: Anion Gap 6 (5-15); BUN 17 mg/dL (7-18); BUN/Creat Ratio 19.3 RATIO (10-20); Calcium,Total 9.2 mg/dL (8.5-10.1); Chloride 108 mmol/L (98-107); Creatinine, Serum 0.88 mg/dL (0.55-1.02); EST Glomerular Filtration Rate 79 mL/min (>60); Est Glom Filt Rate - Afr Amer 95 mL/min (>60); Estimated Creatinine Clearance 78.52 ml/min; Glucose 120 mg/dL (74-106); Potassium 3.8 mmol/L (3.5-5.1); Sodium Level 140 mmol/L (136-145)
[2022-08-03 21:20] LABS: Internal QC Validated? YES +Cl - CLEAR BKGD; Pregnancy, Serum, hCG Quali. NEGATIVE Negative
[2022-08-03 21:37] VITALS: BMI 37.8
--- NOTE | 2022-08-03 21:40 | CT_ITS ---
INDICATION: Right trimalleolar ankle fracture EXAMINATION: CT BONE - CT Lower Extremity W/O Contrast Injection TECHNIQUE: Helically acquired images were obtained of the right ankle. 2-D reformats were performed by the technologist. A radiation dose optimization technique was used for this scan. IV Contrast dosage and agent: None. COMPARISON: Same day x-rays FINDINGS: SOFT TISSUES: Medial more than lateral ankle inflammatory stranding. No radiopaque foreign body. BONES/JOINTS: Distal fibular diaphysis comminuted fracture with a butterfly fragment. Minimal displacement/angulation. Comminuted mildly displaced medial and posterior malleolus fracture complex. Soft tissue swelling about the fractures. Anterior subluxation of the tibia on the talus. CT/Extremity Lower without Contra IMPRESSION: Comminuted trimalleolar fracture detailed above. Electronically Signed: Haroon Sullivan MD at 23:53 EST ,
[2022-08-03 21:43] VITALS: BP 128/81; PULSE 84; RESP 17; TEMP 37.1; O2SAT 95
--- NOTE | 2022-08-03 22:07 | RAD_ITS ---
INDICATION: post-reduction Right Ankle EXAMINATION/TECHNIQUE: X-RAY - RIGHT XR Ankle Min 3 Views 3 VIEWS COMPARISON: 2 hours earlier RAD/Ankle min 3 Views IMPRESSION: Decreased posterior malleolar fragment displacement. Otherwise similar appearance of fibula and tibia fractures and tibiotalar subluxation. Electronically Signed: Haroon Sullivna MD at 22:35 EST ,
[2022-08-03] MEDS: Ondansetron 4 MG/2 ML Vial IV (23:13)
[2022-08-03] MEDS: 0.9% Saline Lock 10 ML Syringe IV (23:15)
[2022-08-04] VITALS (8 sets, daily range): BP systolic 112–140; BP diastolic 71–83; PULSE 89–108; RESP 14–16; TEMP 36.6–37.3; O2SAT 91–100; BMI 37.7
[2022-08-04] MEDS: HYDROmorphone 0.5 MG/0.5 ML SYRINGE IV ×3 (01:19→05:40)
[2022-08-04] MEDS: 0.9% Saline Lock 10 ML Syringe IV ×2 (03:53→05:41)
--- NOTE | 2022-08-04 07:05 | NURSING ---
leaving unit for scheduled surgery
[2022-08-04] MEDS: Lactated Ringers 1,000 ML 15 ML IV (07:35)
[2022-08-04] MEDS: Cefazolin 2 GM in 0.9% Normal Saline 100 ML IV (10:21)
--- NOTE | 2022-08-04 10:39 | RAD_ITS ---
INDICATION: FX EXAMINATION/TECHNIQUE: X-RAY - RIGHT XR Ankle 2 Views 6 VIEWS COMPARISON: 08/03/2022 RAD/Ankle 2 Views IMPRESSION: 5 fluoroscopic views of right trimalleolar fracture ORIF. Electronically Signed: Haroon Sullivan MD at 16:49 EST ,
--- NOTE | 2022-08-04 13:45 | CASEMGMT ---
Addendum entered by Nakita Vega 08/04/22 15:50: Pt remains off of floor. Original Note: RN CM in to pt room for assessment, pt is currently off of the floor.
[2022-08-04] MEDS: Lidocaine 1% (20 ml mdv) 20 ML Vial (17:00)
[2022-08-04] MEDS: Bupivacaine 0.5% PF 10 ML VIAL (17:00)
--- NOTE | 2022-08-04 17:40 | RAD_ITS ---
INDICATION: Postoperative EXAMINATION/TECHNIQUE: X-RAY - RIGHT XR Ankle Min 3 Views 3 VIEWS COMPARISON: 08/03/2022, 07/27/2022 RAD/Ankle min 3 Views IMPRESSION: 1. Fibula fracture ORIF in near-anatomic alignment. 2. Medial malleolus ORIF with persistent lateral subluxation of the distal fragment. 3. Posterior malleolus ORIF in anatomic alignment. 4. Substantially improved alignment of the ankle mortise. Electronically Signed: Haroon Sullivan MD at 18:30 EST ,
--- NOTE | 2022-08-04 17:45 | PCM.OPRPT ---
Problems Associated Problem List Diagnoses (1) Closed trimalleolar fracture of right ankle: Report of Operation Date of Procedure: 08/04/22 Pre-Operative Diagnosis: 1. Trimalleolar Ankle fracture Right ankle 2. Syndesmotic instability with tibiotalar dislocation Right foot Post-Operative Diagnosis: 1. Trimalleolar Ankle fracture Right ankle 2. Syndesmotic instability with tibiotalar dislocation Right foot Surgery/Procedure Performed:: 1. ORIF of the Right Trimalleolar Ankle Fracture 2. Repair of syndesmosis Right Ankle Description of Surgical Findings:: See operative note for findings Surgeon: Jovani Wild neuroscience specialist: Maddie Escobar DPM PGY-3 Type of Anesthesia: General/Regional (With popliteal block) and Local (20 cc one-to-one mixture 1% lidocaine plain 0.5% Marcaine plain) Specimen's removed: None Drains: None Estimated Blood Loss (mL): < 20mL Description of Procedure: HPI/indication: Patient is a 31-year-old female whom the night of 08/03/2022 was getting items from out of her car when she came out of the houseStepping off the stair of the front porch onto a wooden stair below and slipped inverting her ankle with body weight going over the ankle. She states when she fell she landed in the flower bed next to the porch steps she then called her who was inside the house and when he came out to check on her noticed the ankle looked funny and called 911. She was transported by EMS to [facility] ED where radiographs were obtained demonstrating right trimalleolar ankle fracture. ED called me the physician on-call to discuss her case. She was reduced in the ED and placed into a posterior splint and sugar-tong cast with post reduction filmsObtained. Upon reviewing these films it is noted that the posterior malleoli are fracture fragment appeared to be of a large fragment and thus a CT was obtained to further evaluate and for operative planning. CT was reviewed demonstrating posterior malleolus fracture with superior displacement. As well as a comminuted fibular fracture and medial malleolus fracture.She was admitted to [facility] for pain control with surgical intervention planning for 08/04/2022. I discussed with patient and her the need for surgical intervention to address her fractures. and patient agreed to the fixation. Discussed with patient and benefits of the procedure in great detail, as well as all risks and complications of the procedure. They are aware that the risks and complications include but are not limited to the following: Pain, continued pain, complex regional pain syndrome, edema, wound dehiscence, delayed healing/nonhealing, infection, scarring, poor cosmetic result, hardware failure, symptomatic/painful hardware, the need for further surgical intervention, post traumatic arthritis, neuritis/numbness, addiction to pain medication, delayed union/nonunion, malunion, difficulty wearing shoe gear, deformity, stroke, heart attack, allergic reaction, blood clot, loss of function, loss of limb, and loss of life. The patient is able to repeat these back. Patient voices understanding of these risks. Patient is in agreement with the need to proceed with surgical intervention. Surgical intervention was planned for 08/04/2022 at [facility].H&P was reviewed prior to surgery. All labs and diagnostic data were reviewed prior to surgery. Operative limb was signed prior to entering the OR. Procedure: Under mild sedation patient was brought to the operating placed on the table in the supine position. Patient received a popliteal block by the anesthesia team. Following induction of general anesthesia a pneumatic thigh tourniquet was placed about the patient's right thigh. Next, the foot was scrubbed, prepped, and draped in the usual aseptic manner. An Esmarch bandage was used to exsanguinate the right foot and the pneumatic thigh tourniquet was inflated to 300 mmHg. At this time fluoroscopic images were taken in multiple views for incision planning with landmarks marked out. Next utilizing a #15 blade a linear incision was made overlying the fibula from proximal to distal. Incision was deepened utilizing sharp and blunt dissection to the level of the fracture fragment. The fracture fragment was freed and debrided of all hematoma and small comminuted fragments. It was noted that some of the peroneal muscles as well as the muscles of the deep posterior compartment were interposed between pieces of the fracture fragments. These were gently dissected free in order to reposition the muscles into their compartments and adequately reduce the fracture. The site was then flushed with copious amounts of normal sterile saline. Utilizing pointed reduction clamp and lobster-claw the fracture fragment was reduced and visualized in multiple fluoroscopic views. Following AO principles a 3.0 mm x 18 mm interfragmentary cancellous screw was placed across the proximal fracture site. A second 3.0 mm x 16 mm cancellous interfragmentary screw was placed just distal to the previous interfragmentary screw to better reduce the comminuted fracture fragment. Next, a 10 hole one third tubular Arthrex plate was aligned to the fibula and visualized in multiple fluoroscopic views and deemed to be in excellent position. The plate was then temporarily fixated using 2 threaded olive wires 1 at the proximal portion of the plate and 1 at the distal portion of the plate. Next, following AO principles the 2 holes at the most proximal portion of the plate were filled with a 3.5 mm x 16 mm locking screw and a 3.5 mm x 14 mm locking screw respectively. The proximal olive wire was then removed and a 3.5 mm x 14 mm locking screw was placed. Following AO principles in the most distal hole of the plate a 3.5 mm x 10 mm locking screw was placed. The olive wire was then removed at the most distal aspect of the plate and in its place a 3.5 mm x 12 mm locking screw was placed. At this time the pneumatic thigh tourniquet was deflated and a prompt hyperemic response was noted to the digits of the right foot. A 10-minute jasson period took place prior to reinflation of the pneumatic thigh tourniquet. Next, a hole in the plate was skipped at the third position from the most distal aspect to leave room for placement of a tight rope device. Following AO principles the hole just proximal to this was filled with a 3.5 mm x 14 mm locking screw. In the whole above this was also filled with a 3.5 mm x 14 mm locking screw. Following AO principle a 3.0 mm x 20 mm cancellous screw was thrown through the plate at a slight angle across the fracture fragment. At this time reduction clamps were removed and noted that the posterior lateral butterfly fragment did have a slight loss to the reduction. Reduction clamps were reapplied and the fragment was tacked down with Fiber tape and tightened into position proximally and distally. Next attention was directed to the medial malleolus where a incision was made overlying the medial malleoli are fracture fragment and curved slightly at the most distal portion of the incision. Incision was deepened utilizing sharp and blunt dissection to the level of the fracture fragment. Fracture fragment was then reduced utilizing pointed reduction clamp however it is noted that the posterior medial aspect of the fracture fragment did have significant defect with a large hole visualized. K wires were placed overlying 1 another on AP view and parallel to 1 another on lateral view. A 4.0 mm x 58 mm and a 4.0 mm x 56 mm cannulated screws were placed across the fracture site, however, adequate bite was not achieved with motion of the fracture fragment still occurring. With this inadequate reduction noted secondary to comminution of the medial malleolar fragment with significant defect, the 2 screws were removed. A hook plate was not deemed possible since defect would not allow screw placement across the fracture fragment it was opted for two 1.6 mm K wires to be placed across the fracture site. K wires were then bent and a wireless consultant was utilized to remove the ends and the wires were buried to bone. This was noted to adequately reduce the fragment without motion. Next, a small Steinmann pin was utilized to aid in reduction of the posterior malleolus fragment and was driven medial to lateral through the fracture fragment. Fracture fragment was pulled distally with pointed reduction clamp placed A to P. Reduction of the posterior malleolar fragment was deemed excellent in multiple fluoroscopic views with no step-off at the level of the ankle joint. Next, utilizing a stab incisions at the anterior ankle and following AO principles a 4.0 mm x 40 mm cannulated screw was placed A to P across the fracture fragment. Just lateral to this a second stab incision was made and following AO principles a 4.0 mm x 38 mm cannulated screw was placed A to P across the fracture fragment. The pointed reduction clamp was removed and reduction of the posterior malleolus fragment was deemed excellent in multiple fluoroscopic views. At this time a hook test was utilized to confirm syndesmotic instability. Next, a K wire was placed across the fibula through the tibia for guidance of a tight rope. At this time the pneumatic thigh tourniquet was again deflated and a prompt hyperemic response was noted to the digits of the right foot. Following a 10-minute jasson/breather period the tourniquet was reinflated. Next, at the more distal portion of the fracture fragment it is noted with a slight step-off of the butterfly fragment had occurred and thus a third interfragmentary screw was placed across the site utilizing a 3.0 mm x 16 mm cancellous screw. This was noted to reduce this fracture fragment into better position. Next, a Arthrex tight rope system was deployed across the tibiofibular syndesmosis with adequate reduction of the syndesmosis. Following reduction of the syndesmosis the site was copiously irrigated with Irrisept followed by copious amounts of normal sterile saline. Final fluoroscopic images were reviewed in multiple views and deemed good reduction of fracture fragments in anatomic alignment of the ankle joint. At this time attention was directed to the medial malleoli are fracture fragment where a mixture of Allosync pure DBM and Allosync cancellous bone chips were mixed to form a packing putty and placed into the defect of the posterior malleolus. Next, the deep tissues of the medial incision were reapproximated with a 4-0 Vicryl. The subcutaneous tissues of the medial incision were reapproximated with a 4-0 Monocryl. The skin of the medial incision reapproximated with a 3-0 Prolene. The 2 anterior stab incisions were closed with 3-0 Prolene in simple interrupted fashion. Next, the lateral incision deep tissues were closed with 4-0 Vicryl. The subcutaneous tissue of the lateral incision was reapproximated with a 4-0 Monocryl. At this time the pneumatic thigh tourniquet was deflated and a prompt hyperemic response was noted to the digits of the right foot. The skin of the lateral incision reapproximated with with a 3-0 Prolene in simple interrupted fashion. Next, incision sites were dressed with Betadine soaked Adaptic, 4 x 4 gauze, Kerlix, ABD pad, web roll cast padding, 4 inch Jaden wrap and 6 inch Jaden wrap. Next a posterior splint was applied to the right lower extremity along with a well molded sugar-tong cast. The cast was then anchored with a 4 inch Jaden wrap and 6 inch Jaden wrap forming a modified Zhu compression dressing. The patient was then transported to PACU with vital signs stable and vascular status intact to the right lower extremity. Following anesthesia protocol she will return to the medical surge floor for continued pain control in the postoperative period. She is instructed to remain nonweightbearing to the right lower extremity and to elevate the extremity at all times of rest for postoperative edema control. I will continue to follow while in-house Grafts/Implants Used: Arthrex one third tubular plate, screws, K wires, tight rope. Complications None Admit VTE Documentation VTE Present on Admission: No VTE Mechan Device Prophylaxis: SCD's VTE Pharm Prophylaxis ordered?: Yes
[2022-08-04] MEDS: Ondansetron 4 MG/2 ML Vial IV (19:57)
[2022-08-05 04:04] VITALS: BP 114/62; PULSE 95; RESP 15; TEMP 36.6; O2SAT 94
[2022-08-05] MEDS: 0.9% Saline Lock 10 ML Syringe IV ×7 (06:20→20:35)
[2022-08-05] MEDS: HYDROmorphone 1 MG/ML Syringe IV ×5 (06:20→20:35)
--- NOTE | 2022-08-05 06:24 | NURSING ---
Asked patient if she would be willing to stand pivot to chair, patient stated she is too painful right now. This RN medicated patient.
--- NOTE | 2022-08-05 07:43 | NURSING ---
Sent text to Dr. Cancino patient in pain and Dilaudid not due.
[2022-08-05 08:11] VITALS: BP 111/81; PULSE 100; RESP 18; TEMP 37; O2SAT 95
--- NOTE | 2022-08-05 08:44 | NURSING ---
Page to Dr. Wild for additional pain medication.
[2022-08-05] MEDS: oxyCODONE 5 MG Tablet 10 MG PO (09:29)
--- NOTE | 2022-08-05 09:30 | CASEMGMT ---
Addendum entered by Nakita Vega 08/05/22 10:07: HORTENSIA CANDELARIA Assessment: Face to Face with pt for initial transition planning/care coordination assessment. HORTENSIA CANDELARIA introduced self and role at [facility], pt voices understanding and consents to assessment. Pt is A/O x4 and answers all questions appropriately at this time. Pt at bedside. Care providers, pharmacy, and demographics verified/updated. Admitting Dx: right trimalleolar ankle fracture PCP:Sylvia Specialists: Benny, [employer] [facility] Preferred [facility]acy[facility] Insurance: [employer] Prescription Benefit: yes LNOK: Michael Terrell, Living Arrangements: Pt lives with and 4 kids in a two story home with 2 steps to enter without a rail or grab bar. Pt reports prior to the fall, she was I in ADL's. Pt denies concerns at home. Transportation: Pt drives self and denies concerns with transportation. Pt is able to provide transportation until she can drive again. DME/HHC/SNF: Pt denies having any DME, previous HHC or SNF stays. Pt states no concerns with going home at time of dc. Per nursing, she turned therapy aware. Discussed with pt that therapy eval is needed for equipment recommendations and so she learns how to manage being NWT bearing. Pt verbalizes understanding. Pt states no further concerns/needs. CM to follow. Advised pt to ask CM if any further question/concerns/needs arise, voices understanding. Pt Goal: Home Plan: Home with DME TBD upon therapy eval. Original Note: HORTENSIA CANDELARIA in to pt room to complete assessment. Pt nurse and student nurse in room, pt reports extremely painful and requests HORTENSIA CANDELARIA come back.
--- NOTE | 2022-08-05 10:36 | NURSING ---
Page sent to Dr. Wild regarding patients pain.
--- NOTE | 2022-08-05 10:45 | NURSING ---
Dr. Cancino aware of patients severe pain. States he will be in at 12:00 noon to evaluate patient. Boyfriend at bedside requesting to speak with patient advocate regarding pain. Message left on Voicemail. Explained to boyfriend and patient Dr. Wild is giving additional orders for pain meds and medications take some time to work. Patient crying but is able to answer questions and is laughing at times. Patient states she is going to remove alex bandages to right ankle but she wont. Patient also states she feels like she is being a big baby about the pain. Reassurance given that we are doing everything we can. cuff presser in room to evaluate. Toes warm and pt is able to move all toes to right foot.
[2022-08-05] MEDS: Ketorolac 30 MG/ML Syringe IV ×3 (10:59→23:02)
[2022-08-05] MEDS: Morphine 4 MG/ML Syringe IV ×2 (11:27→15:35)
--- NOTE | 2022-08-05 11:46 | NURSING ---
Rating pain to right ankle 8/10 after IV Dilaudid and IV Morphine and IV Toradol.
[2022-08-05 12:00] VITALS: BP 127/73; PULSE 78; RESP 16; TEMP 37.2; O2SAT 97
[2022-08-05 12:43] VITALS: BP 127/73; PULSE 78; RESP 14; TEMP 37.2; O2SAT 97
--- NOTE | 2022-08-05 13:01 | PN_ITS ---
Subjective Subjective Patient seen bedside today resting with present.She states that she is having discomfort to the right lower extremity following surgical procedure yesterday. Has been receiving Dilaudid and a dose of oral oxycodone acetaminophen however pain returns 1 to 2 hours later. She denies any constitutional symptoms. She denies any burning or tingling in the leg or digits, denies pain with movement of digits. She did receive IV morphine 1 hour prior to being seen and states that this is helping. Denies further complaints. Objective Data Objective Data Vital Signs: Vital Signs Temp Pulse Resp BP Pulse Ox O2 Del Method O2 Flow Rate 99.0 F 78 14 127/73 H 97 Room Air 2 08/05/22 12:43 08/05/22 12:43 08/05/22 12:43 08/05/22 12:43 08/05/22 12:43 08/05/22 12:43 08/04/22 19:00 Oxygen Flow Rate (L/min) 2 Oxygen Delivery Method Room Air Weight: 99.6 kg Body Mass Index (BMI) 37.7 Intake & Output: Intake and Output for Last 24 Hours 08/03/22 08/04/22 08/05/22 23:59 23:59 23:59 Intake Total 2410 / 2510 400 / 400 Output Total 350 / 950 1050 / 1050 Balance 2060 / 1560 -650 / -650 Lab / Micro Data Result Diagrams: 08/03/22 20:41 08/03/22 20:41 Radiography Diagnostic Testing: Radiology Impression Ankle X-Ray 08/04/22 10:39 IMPRESSION: 5 fluoroscopic views of right trimalleolar fracture ORIF. Electronically Signed: Haroon Sullivan MD at 16:49 EST , Ankle X-Ray 08/04/22 17:40 IMPRESSION: 1. Fibula fracture ORIF in near-anatomic alignment. 2. Medial malleolus ORIF with persistent lateral subluxation of the distal fragment. 3. Posterior malleolus ORIF in anatomic alignment. 4. Substantially improved alignment of the ankle mortise. Electronically Signed: Haroon Sullivan MD at 18:30 EST , Physical Exam Const alert, oriented x3 and no apparent distress General Appearance: cooperative HEENT normocephalic Eyes General Eye: normal appearance of both eyes Neck General: normal visual inspection Lymph Lymphatic: no lymphadenopathy noted and no lymphedema noted Resp normal respiratory effort Cardio regular rate and regular rhythm GI soft to palpation and non-tender Extremity normal capillary refill, no joint enlargement and no calf tenderness Extremity Narrative: Right lower extremity trimalleolar ankle fracture with posterior splint and sugar-tong cast intact to right lower extremity. Sutures intact to the medial, anterior, and lateral ankle. No signs of infection. DP and PT pulses palpable. Capillary fill time to the digits is brisk with no evidence of pallor. Patient can adequately flex and extend digits without pain. Skin no rashes or lesions noted, skin turgor normal and no jaundice Neuro oriented x3 and moves all extremities Neuro Narrative: Adequate gross sensation and light touch sensation. No evidence of numbness, paresthesias, or burning. Assessment & Plan Assessment/Plan (1) Closed trimalleolar fracture of right ankle: PLAN: Plan Patient seen and evaluated She is s/p ORIF of the displaced trimalleolar ankle fracture with repair of distal tibiofibular (syndesmosis) joint. DOS 08/04/2022. POD #1 Patient was having pain following waning of the regional block. Patient was taking Dilaudid spaced out with oral oxycodone acetaminophen 10/07/2024 however this was not improving her pain and thus she was switched to IV morphine which is helping to improve pain. Discussed with nursing to continue IV morphine every 4 hours Along with intermittent Toradol for postoperative pain control. Discussed adding 2 mg Valium as needed for her anxiety. Patient on Lovenox 40 mg subcu for anticoagulant therapy. Dressings to the right lower extremity were taken down and the surgical site inspected. Sutures intact, minimal edema noted to the right lower extremity. No pain with range of motion of the digits, palpable DP and PT pulses are strong, capillary fill time is brisk to all the digits of the foot, protective sensation is intact to the foot. No pallor is noted to the digits. I do not feel patient has compartment syndrome, however will continue to be monitored. Dressings changed today consisting of Xeroform, 4 x 4 gauze, Kerlix, ABD padding, cotton web roll padding, 4 inch Jaden and 6 inch Jaden. Posterior splint and sugar-tong cast was reapplied and anchored into position with a 4 inch and 6 inch Jaden wrap. Patient is continue to elevate the right lower extremity at all times of rest. May continue to apply ice behind the knee for postoperative pain control. She is to strictly remain nonweightbearing to the right lower extremity. A prescription for a knee scooter was written today. I did return this evening to continue to monitor patient. Patient's pain has not worsened and is becoming more controlled with the above pain medication. Still demonstrating negative signs for compartment syndrome. Discussed with nursing who also states improvement in pain level. I also discussed with nursing to inform me of any changes in the patient's status. I will continue to follow while in house and in postoperative period. Pending pain control and continued negative exam findings, I discussed possibly discharging home tomorrow, however if pain is not well controlled then we will keep another day. Please do not hesitate to call with any questions or concerns Jovani Wild Jr. Nabor.P.M. [facility] [phone]
[2022-08-05] MEDS: diazePAM 2 MG Tablet PO ×2 (13:17→20:35)
--- NOTE | 2022-08-05 13:17 | CASEMGMT ---
Addendum entered by Nakita Vega 08/05/22 14:39: HORTENSIA CANDELARIA in to pt room, provided pt with rx for knee scooter. They are aware that this is not covered by the insurance. Gave options of renting, purchasing at a local pharmacy or [employer]. Discussed how pt felt she did with therapy. She states well with the walker. She is aware that the RN BARI will set up a walker for her at [facility]. Provided with a verbal local in network list of DME companies, she chose [facility]. No further needs at this time. Addendum entered by Nakita Vega 08/05/22 14:35: Received notification that knee scooter is not covered. Discussed with therapy who is recommending a standard walker for pt. Original Note: Received signed rx for knee scooter. Reached out to [facility], they do not carry these. TC to [facility], awaiting returned call from [employer].
--- NOTE | 2022-08-05 13:38 | WOUNDNOTE ---
wound photo: right medial ankle
--- NOTE | 2022-08-05 13:39 | WOUNDNOTE ---
wound photo: right anterior/lateral lower leg/ankle
[2022-08-05 18:00] VITALS: BP 130/68; PULSE 77; RESP 16; TEMP 37; O2SAT 98
[2022-08-05 20:26] VITALS: BP 113/58; PULSE 90; RESP 14; TEMP 37.2; O2SAT 100
[2022-08-05] MEDS: Enoxaparin 40 MG/0.4 ML Syringe SC (23:02)
[2022-08-05] MEDS: Docusate Sodium 100 MG Capsule PO (23:02)
[2022-08-06] MEDS: Morphine 4 MG/ML Syringe IV (04:20)
[2022-08-06] MEDS: 0.9% Saline Lock 10 ML Syringe IV ×4 (04:20→17:35)
[2022-08-06 05:44] VITALS: BP 124/79; PULSE 89; RESP 14; TEMP 37.5; O2SAT 97
[2022-08-06] MEDS: Ketorolac 30 MG/ML Syringe IV ×4 (05:45→23:02)
[2022-08-06 08:15] VITALS: BP 121/83; PULSE 84; RESP 16; TEMP 36.8; O2SAT 99
[2022-08-06] MEDS: Docusate Sodium 100 MG Capsule PO ×2 (10:01→23:02)
[2022-08-06] MEDS: Enoxaparin 40 MG/0.4 ML Syringe SC ×2 (10:01→23:02)
--- NOTE | 2022-08-06 13:49 | PCM.PROGNOTE ---
Subjective Subjective Patient seen bedside resting comfortably with present. Patient states pain is a little more controlled but still has some rating it at a 7 out of 10. Patient has been working with therapy to practice with her walker to remain nonweightbearing. Patient eating and voiding without difficulty. Denies any constitutional symptoms. Denies any further complaints. Objective Data Objective Data Vital Signs: Vital Signs Temp Pulse Resp BP Pulse Ox O2 Del Method O2 Flow Rate 98.2 F 84 16 121/83 H 99 Room Air 2 08/06/22 08:15 08/06/22 08:15 08/06/22 08:15 08/06/22 08:15 08/06/22 08:15 08/06/22 08:15 08/04/22 19:00 Oxygen Flow Rate (L/min) 2 Oxygen Delivery Method Room Air Weight: 99.6 kg Body Mass Index (BMI) 37.7 Intake & Output: Intake and Output for Last 24 Hours 08/04/22 08/05/22 08/06/22 23:59 23:59 23:59 Intake Total 2410 / 2510 1000 / 1850 1450 / 1450 Output Total 350 / 950 1050 / 1050 700 / 700 Balance 2060 / 1560 -50 / 800 750 / 750 Lab / Micro Data Result Diagrams: 08/03/22 20:41 08/03/22 20:41 Physical Exam Const alert, oriented x3 and no apparent distress General Appearance: cooperative HEENT normocephalic Eyes General Eye: normal appearance of both eyes Neck General: normal visual inspection Lymph Lymphatic: no lymphadenopathy noted and no lymphedema noted Resp normal respiratory effort Cardio regular rate and regular rhythm GI soft to palpation and non-tender Extremity normal capillary refill, no joint enlargement and no calf tenderness Extremity Narrative: Right lower extremity trimalleolar ankle fracture with posterior splint and sugar-tong cast intact to right lower extremity. Sutures intact to the medial, anterior, and lateral ankle. No signs of infection. DP and PT pulses palpable. Capillary fill time to the digits is brisk with no evidence of pallor. Patient can adequately flex and extend digits without pain. Skin no rashes or lesions noted, skin turgor normal and no jaundice Neuro oriented x3 and moves all extremities Neuro Narrative: Adequate gross sensation and light touch sensation. No evidence of numbness, paresthesias, or burning. Assessment & Plan Assessment/Plan (1) Closed trimalleolar fracture of right ankle: PLAN: Plan Patient seen and evaluated She is s/p ORIF of the displaced trimalleolar ankle fracture with repair of distal tibiofibular (syndesmosis) joint. DOS 08/04/2022. POD #2 She was receiving IV morphine every 4 hours Along with intermittent Toradol for postoperative pain control. This did improve pain. We we will discontinue all IV pain medications and see how she tolerates oral medications overnight for pain control. She is taking 2 mg Valium as needed for her anxiety. Patient on Lovenox 40 mg subcu for anticoagulant therapy. Dressings to the right lower extremity were taken down and the surgical site inspected. Sutures intact, minimal edema noted to the right lower extremity. No pain with range of motion of the digits, palpable DP and PT pulses are strong, capillary fill time is brisk to all the digits of the foot, protective sensation is intact to the foot. No pallor is noted to the digits. I do not feel patient has compartment syndrome, however will continue to be monitored. Dressings changed today consisting of Xeroform, 4 x 4 gauze, Kerlix, ABD padding, cotton web roll padding, 4 inch Jaden and 6 inch Jaden. Posterior splint and sugar-tong cast was reapplied and anchored into position with a 4 inch and 6 inch Jaden wrap. Patient is continue to elevate the right lower extremity at all times of rest. May continue to apply ice behind the knee for postoperative pain control. She is to strictly remain nonweightbearing to the right lower extremity with use of walker. I will continue to follow while in house and in postoperative period. Pending pain control I discussed discharging home tomorrow. Following discharge she will remain nonweightbearing to the right lower extremity with use of the walker. And will take one 325 mg aspirin a day for the next 20 days for postoperative anticoagulant therapy. She will also take oral doxycycline 100 mg daily for the next 10 days. She will also be discharged home with oral oxycodone acetaminophen 5-325mg for postoperative pain control. She will follow-up in the office within 1 week of discharge for continued postoperative management. Please do not hesitate to call with any questions or concerns Jr. Nabor Oakes.P.M. Foot [facility] ankle Center [facility] [phone]
--- NOTE | 2022-08-06 13:50 | DCINST_ITS ---
Discharge Instructions Diet Discharge Diet: No restrictions Activity Discharge Activity: May Not Drive, May Shower (Please utilize cast bag covering to keep dressings clean, dry, and intact to the right lower extremity) and Use Walker (May utilize walker or knee scooter to remain nonweightbearing to the right lower extremity) Weight Bearing Status: No weight bearing (Please remain strictly nonweightbearing to the right lower extremity) Keep extremity elevated above heart level: Right Leg (Elevate right lower extremity at all times of rest for postoperative edema control) Dressing / Incision Call your doctor if you observe: Fever of 101 or Higher, Shortness of breath, Chest pain, Calf discomfort and Uncontrolled pain Change Dressing in: do not change dressing (Do not change dressing. Physician will change dressing at first postop appointment.) Remove Dressing in: leave in place till F/U (Physician will change dressing at first postoperative appointment) Cleanse incision/area with: Do not get Incision Wet (Please keep dressings clean dry and intact and do not get wet.) and Keep Dressing Clean & Dry Follow Up Care Please Follow Up With: Jovani Wild DPM When: Patient has first postoperative appointment scheduled in office in 1 week Test Results: Test results from this visit will be discussed in further detail at your follow- up appointment, if applicable. Discharge Plan Admission Admit Date/Time: 08/03/22 21:40 Attending Provider: Jovani Wild Primary Care Provider: Olimpia Ward Discharge Orders/Prescriptions Prescriptions: New aspirin 325 mg tablet 325 mg PO DAILY 20 Days Qty: 20 0RF doxycycline hyclate 100 mg capsule 100 mg PO DAILY 10 Days Qty: 10 0RF oxycodone 5 mg tablet 5 mg PO Q6H PRN (Reason: pain) 7 Days Qty: 28 0RF acetaminophen [Tylenol] 325 mg tablet 325 mg PO Q6H PRN (Reason: pain) 7 Days Qty: 28 0RF Rx Instructions: Take with 5mg Oxycodone tablet. No Action Liletta 19.5 mcg/24 hour (4 years) intrauterine device 1 device Intrauterine ONCE methylphenidate HCl 10 mg tablet 10 mg PO BID Label Comments: take 1 tablet by mouth twice a day Referrals / Follow Up: Olimpia Ward MD [Primary Care Provider] - Disposition Disposition (needs filled in before D/C Order can be placed): Home, Self Care
[2022-08-06 14:53] VITALS: BP 119/78; PULSE 97; RESP 16; TEMP 37.3; O2SAT 96
--- NOTE | 2022-08-06 14:57 | CASEMGMT ---
Addendum entered by Amy Ren 08/06/22 16:09: Per Anu @ [employer], WW has been delivered to pt's room. Pt had asked if there is a knee scooter in-house she could trial. Therapy made aware and states they will take one in for her to try out. Pt made aware. Original Note: HORTENSIA CANDELARIA NOTE: Script for WW received from Dr Wild and referral sent to Denisha via [employer]. E-mail sent to [employer] to inform her of same. Pt made aware WW to be delivered to her room today. She states she may still end up getting a knee scooter, but she has not decided yet. Discussed possible options of renting this or purchasing. She denies having other discharge planning needs or concerns. Nevaeh SANTO RN CM
[2022-08-06] MEDS: oxyCODONE 5 MG Tablet PO (14:59)
[2022-08-06] MEDS: Acetaminophen 325 MG Tablet PO (14:59)
--- NOTE | 2022-08-06 20:04 | PCM.PROGNOTE ---
Subjective Subjective Patient seen bedside resting comfortably with present. Patient states pain is a little more controlled but still has some rating it at a 7 out of 10. Patient has been working with therapy to practice with her walker to remain nonweightbearing. Patient eating and voiding without difficulty. Denies any constitutional symptoms. Denies any further complaints. Objective Data Objective Data Vital Signs: Vital Signs Temp Pulse Resp BP Pulse Ox O2 Del Method O2 Flow Rate 99.1 F 97 16 119/78 96 Room Air 2 08/06/22 14:53 08/06/22 14:53 08/06/22 14:53 08/06/22 14:53 08/06/22 14:53 08/06/22 14:53 08/04/22 19:00 Oxygen Flow Rate (L/min) 2 Oxygen Delivery Method Room Air Weight: 99.6 kg Body Mass Index (BMI) 37.7 Intake & Output: Intake and Output for Last 24 Hours 08/04/22 08/05/22 08/06/22 23:59 23:59 23:59 Intake Total 2410 / 2510 1000 / 1850 1450 / 1450 Output Total 350 / 950 1050 / 1050 700 / 700 Balance 2060 / 1560 -50 / 800 750 / 750 Lab / Micro Data Result Diagrams: 08/03/22 20:41 08/03/22 20:41 Physical Exam Const alert, oriented x3 and no apparent distress General Appearance: cooperative HEENT normocephalic Eyes General Eye: normal appearance of both eyes Neck General: normal visual inspection Lymph Lymphatic: no lymphadenopathy noted and no lymphedema noted Resp normal respiratory effort Cardio regular rate and regular rhythm GI soft to palpation and non-tender Extremity normal capillary refill, no joint enlargement and no calf tenderness Extremity Narrative: Right lower extremity trimalleolar ankle fracture with posterior splint and sugar-tong cast intact to right lower extremity. Sutures intact to the medial, anterior, and lateral ankle. No signs of infection. DP and PT pulses palpable. Capillary fill time to the digits is brisk with no evidence of pallor. Patient can adequately flex and extend digits without pain. Skin no rashes or lesions noted, skin turgor normal and no jaundice Neuro oriented x3 and moves all extremities Neuro Narrative: Adequate gross sensation and light touch sensation. No evidence of numbness, paresthesias, or burning. Assessment & Plan Assessment/Plan (1) Closed trimalleolar fracture of right ankle: PLAN: Plan Patient seen and evaluated She is s/p ORIF of the displaced trimalleolar ankle fracture with repair of distal tibiofibular (syndesmosis) joint. DOS 08/04/2022. POD #2 Patient was having pain following waning of the regional block. Patient was taking Dilaudid spaced out with oral oxycodone acetaminophen 10/07/2024 however this was not improving her pain and thus she was switched to IV morphine which is helping to improve pain. Discussed with nursing to continue IV morphine every 4 hours Along with intermittent Toradol for postoperative pain control. Discussed adding 2 mg Valium as needed for her anxiety. Patient on Lovenox 40 mg subcu for anticoagulant therapy. Dressings to the right lower extremity were taken down and the surgical site inspected. Sutures intact, minimal edema noted to the right lower extremity. No pain with range of motion of the digits, palpable DP and PT pulses are strong, capillary fill time is brisk to all the digits of the foot, protective sensation is intact to the foot. No pallor is noted to the digits. I do not feel patient has compartment syndrome, however will continue to be monitored. Dressings changed today consisting of Xeroform, 4 x 4 gauze, Kerlix, ABD padding, cotton web roll padding, 4 inch Jaden and 6 inch Jaden. Posterior splint and sugar-tong cast was reapplied and anchored into position with a 4 inch and 6 inch Jaden wrap. Patient is continue to elevate the right lower extremity at all times of rest. May continue to apply ice behind the knee for postoperative pain control. She is to strictly remain nonweightbearing to the right lower extremity. A prescription for a knee scooter was written today. I did return this evening to continue to monitor patient. Patient's pain has not worsened and is becoming more controlled with the above pain medication. Still demonstrating negative signs for compartment syndrome. Discussed with nursing who also states improvement in pain level. I also discussed with nursing to inform me of any changes in the patient's status. I will continue to follow while in house and in postoperative period. Pending pain control and continued negative exam findings, I discussed possibly discharging home tomorrow, however if pain is not well controlled then we will keep another day. Please do not hesitate to call with any questions or concerns Jr. Trixie OakesPJimM. Foot and ankle Center [facility] [phone]
[2022-08-06 23:16] VITALS: BP 124/79; PULSE 83; RESP 16; TEMP 36.6; O2SAT 100
[2022-08-07 04:04] VITALS: BP 123/82; PULSE 92; RESP 16; TEMP 37.1; O2SAT 97
[2022-08-07] MEDS: Ketorolac 30 MG/ML Syringe IV ×2 (05:05→12:16)
[2022-08-07] MEDS: oxyCODONE 5 MG Tablet PO ×2 (05:11→14:41)
[2022-08-07 09:39] VITALS: BP 135/93; PULSE 88; RESP 16; TEMP 36.7; O2SAT 98
[2022-08-07] MEDS: Enoxaparin 40 MG/0.4 ML Syringe SC (09:53)
[2022-08-07] MEDS: Docusate Sodium 100 MG Capsule PO (09:59)
[2022-08-07] MEDS: 0.9% Saline Lock 10 ML Syringe IV (12:16)
[2022-08-07 14:23] VITALS: BP 127/72; PULSE 98; RESP 16; TEMP 36.9; O2SAT 95
[2022-08-07] MEDS: Acetaminophen 325 MG Tablet PO (14:41)
--- NOTE | 2022-08-07 17:12 | DS.PCM_ITS ---
Providers Date of Admission: 08/03/22 Date of Discharge: 08/07/22 Primary Care Physician: Dr. Olimpia Ward MD Reason For Visit: RIGHT TRIMALLEOLAR ANKLE FRACTURE Diagnosis Discharge Diagnosis (1) Closed trimalleolar fracture of right ankle: Status: Acute Code(s): S82.851A - Displaced trimalleolar fracture of right lower leg, initial encounter for closed fracture Medications at Discharge Home Medications levonorgestrel 20.4 mcg/24 hrs (8 yrs) 52 mg intrauterine device (Liletta) 1 device intrauterine ONCE BIRTHCONTROL 08/15/18 methylphenidate HCl 10 mg tablet 10 mg PO BID ADHD 08/03/22 acetaminophen 325 mg tablet (Tylenol) 325 mg PO Q6H PRN pain 7 days #28 tabs 08/06/22 aspirin 325 mg tablet 325 mg PO DAILY 20 days #20 tabs 08/06/22 doxycycline hyclate 100 mg capsule 100 mg PO DAILY 10 days #10 caps 08/06/22 oxycodone 5 mg tablet 5 mg PO Q6H PRN pain 7 days #28 tabs 08/06/22 Hospital Course Operations - (ORIF of trimalleolar fracture of the right ankle with syndesmotic repair) Procedures EKG Summary of Care Provided Minutes Spent on Discharge: 35 Hospital Course: Patient presented to [facility] ED in the evening of 08/03/2022. Patient was brought by EMS after stepping down off of her porch onto a wooden step in the rain in which she slipped inverting the ankle falling over the ankle and landing into the flower garden by the step. Patient reports that she did see the ankle deformity and alerted her to call 911. In the [facility] ED radiographs were taken demonstrating trimalleolar ankle fracture of the right ankle this was reduced and post reduction films were obtained. CT was also ordered for preoperative evaluation. CT did demonstrate trimalleolar fracture with significant portion of the posterior malleolus affected involving the ankle joint. Discussed with patient and the plan for ORIF of the right ankle with repair of the syndesmosis. Patient understood the need for surgical fixation and was admitted to the hospital for pain control and eventual surgical fixation. All diagnostic data was reviewed prior to surgical fixation, lab work negative, EKG negative, test negative, surgical consent was signed and obtained at patient's own free well. Surgical fixation was performed on 08/04/2022 was deemed successful reduction of fracture fragments. She was kept in-house for postoperative pain control for 2 additional nights. Below is the following encounter for today 08/07/2022: Patient seen and evaluated in the postoperative setting She is s/p ORIF of the displaced trimalleolar ankle fracture with repair of distal tibiofibular (syndesmosis) joint.? DOS 08/04/2022.? POD #3 She was receiving IV morphine every 4 hours Along with intermittent Toradol for postoperative pain control.? This did improve pain.? We discontinued all IV pain medications and patient tolerated oral medications overnight very well.?She is taking 2 mg Valium as needed for her anxiety. Patient on Lovenox 40 mg subcu for anticoagulant therapy. Lovenox was discon tinued at discharge and patient was placed on aspirin 325 mg. Dressings to the right lower extremity were taken down and the surgical site inspected.? Sutures intact, minimal edema noted to the right lower extremity.? No pain with range of motion of the digits, palpable DP and PT pulses are strong, capillary fill time is brisk to all the digits of the foot, protective sensation is intact to the foot.? No pallor is noted to the digits.? Patient does not have compartment syndrome. Dressings changed today consisting of Xeroform, 4 x 4 gauze, Kerlix, ABD padding, cotton web roll padding, 4 inch Jaden and 6 inch Jaden.? Posterior splint and sugar-tong cast was reapplied and anchored into position with a 4 inch and 6 inch Jaden wrap. Patient is continue to elevate the right lower extremity at all times of rest.? May continue to apply ice behind the knee for postoperative pain control. She is to strictly remain nonweightbearing to the right lower extremity with use of walker. Patient to be discharged home and will follow in office for first postoperative appointment. At discharge on 08/07/2022, she will remain nonweightbearing to the right lower extremity with use of the walker.? And will take one 325 mg aspirin a day for the next 20 days for postoperative anticoagulant therapy.? She will also take oral doxycycline 100 mg daily for the next 10 days.? She will also be discharged home with oral oxycodone acetaminophen 5-325mg for postoperative pain control.? She will follow-up in the office within 1 week of discharge for continued postoperative management. Please do not hesitate to call with any questions or concerns Jr. Trixie OakesPJimM. Foot and ankle Center [facility] [phone] Physical Exam Const alert, oriented x3 and no apparent distress General Appearance: cooperative HEENT normocephalic Eyes General Eye: normal appearance of both eyes Neck General: normal visual inspection Lymph Lymphatic: no lymphadenopathy noted and no lymphedema noted Resp normal respiratory effort Cardio regular rate and regular rhythm Extremity normal capillary refill, no joint enlargement and no calf tenderness Extremity Narrative: Sutures intact at the medial and lateral ankle. Skin well coapted. No signs of infection. Posterior splint and sugar-tong cast applied to right lower extremity. Dressings are intact. Skin no rashes or lesions noted, skin turgor normal and no jaundice Neuro moves all extremities Weight / BMI Weight Weight: 99.6 kg Body Mass Index (BMI) 37.7 ABG / Lab / Microbiology Data Result Diagrams: 08/03/22 20:41 08/03/22 20:41 D/C Instructions Discharge Diet: No restrictions Weight Bearing Status: No weight bearing (Please remain strictly nonweightbearing to the right lower extremity) Keep extremity elevated above heart level: Right Leg (Elevate right lower extremity at all times of rest for postoperative edema control) Call your doctor if you observe: Fever of 101 or Higher, Shortness of breath, Chest pain, Calf discomfort and Uncontrolled pain Cleanse incision/area with: Do not get Incision Wet (Please keep dressings clean dry and intact and do not get wet.) and Keep Dressing Clean & Dry Please Follow Up With: Jovani Wild DPM When: Patient has first postoperative appointment scheduled in office in 1 week Meaningful Use Info Meaningful Use Diagnoses (Choose all that apply): None applicable Discharge Plan Admission Admit Date/Time: 08/03/22 21:40 Attending Provider: Jovani Wild Primary Care Provider: Olimpia Ward Discharge Orders/Prescriptions Prescriptions: New aspirin 325 mg tablet 325 mg PO DAILY 20 Days Qty: 20 0RF doxycycline hyclate 100 mg capsule 100 mg PO DAILY 10 Days Qty: 10 0RF oxycodone 5 mg tablet 5 mg PO Q6H PRN (Reason: pain) 7 Days Qty: 28 0RF acetaminophen [Tylenol] 325 mg tablet 325 mg PO Q6H PRN (Reason: pain) 7 Days Qty: 28 0RF Rx Instructions: Take with 5mg Oxycodone tablet. No Action Liletta 19.5 mcg/24 hour (4 years) intrauterine device 1 device Intrauterine ONCE methylphenidate HCl 10 mg tablet 10 mg PO BID Label Comments: take 1 tablet by mouth twice a day Referrals / Follow Up: Olimpia Ward MD [Primary Care Provider] - Disposition Disposition (needs filled in before D/C Order can be placed): Home, Self Care
== END 2022-08-07 19:09 | disposition home or self-care (01) | DRG 313 ==
LOC: ED 20:46 → MS3 08-04 04:21
PROVIDERS: Admitting Provider Student in an Organized Health Care Education/Training Program; Emergency Provider Emergency Medicine; PCP Internal Medicine; Visit Provider Student in an Organized Health Care Education/Training Program
PROC: 0QSJ04Z Reposition Right Fibula with Internal Fixation Device, Open Approach (ICD-10-PCS; principal; 2022-08-04 08:40)
DX: S82.851A Displaced trimalleolar fracture of right lower leg, initial encounter for closed fracture (principal); E66.9 Obesity, unspecified; Z68.41 Body mass index [BMI] 40.0-44.9, adult; M25.371 Other instability, right ankle; W10.9XXA Fall (on) (from) unspecified stairs and steps, initial encounter; Z23 Encounter for immunization
CPT/HCPCS: 73600; 73610; 73700; 76000; 80048; 84703; 85025; 90715; 93005; 97116; 97162; 97530; 99285; C1776; J7120; A4216; J2405

== ENCOUNTER 2023-02-16 06:10 | Day surgery (SDC) | payer MEDICAID, SELFPAY ==
[2023-02-16] VITALS (9 sets, daily range): BP systolic 101–133; BP diastolic 64–87; PULSE 57–100; RESP 16–18; TEMP 36.1–36.9; O2SAT 92–100; BMI 33.0
[2023-02-16 06:36] LABS: Internal QC Validated? YES +Cl - CLEAR BKGD; Pregnancy, Urine Negative Negative
[2023-02-16] MEDS: 0.9% Normal Saline (1000mL) 1,000 ML 80 ML IV (06:51)
--- NOTE | 2023-02-16 07:31 | PCM.DC ---
Discharge Instructions Diet Discharge Diet: No restrictions Activity Discharge Activity: May Not Drive and May Shower (Utilize cast bag covering to keep dressings clean, dry, and intact) Weight Bearing Status: No weight bearing (Please remain nonweightbearing to the right lower extremity With assistance of crutches/walker) Dressing / Incision Call your doctor if you observe: Fever of 101 or Higher, Shortness of breath, Chest pain, Calf discomfort and Uncontrolled pain Change Dressing in: do not change dressing Remove Dressing in: leave in place till F/U (Physician will change dressing at first postoperative visit) Cleanse incision/area with: Keep Dressing Clean & Dry (Keep dressings clean, dry, and intact to the right lower extremity. Utilize cast bag covering to assist in keeping dry) Follow Up Care Please Follow Up With: Jovani Wild DPM When: Patient has first postoperative visit in office early next week Test Results: Test results from this visit will be discussed in further detail at your follow-up appointment, if applicable. Discharge Plan Admission Attending Provider: Jovani Wild Primary Care Provider: Olimpia Ward Discharge Orders/Prescriptions Prescriptions: New doxycycline hyclate 100 mg capsule 100 mg PO DAILY Qty: 10 0RF aspirin 325 mg tablet 325 mg PO DAILY Qty: 20 0RF ondansetron 4 mg tablet,disintegrating 4 mg PO Q8H PRN (Reason: nausea and vomiting) Qty: 28 0RF oxycodone-acetaminophen 5-325 mg tablet 1 tab PO Q8H PRN (Reason: pain) 7 Days Qty: 28 0RF No Action Liletta 19.5 mcg/24 hour (4 years) intrauterine device 1 device Intrauterine ONCE dextroamphetamine-amphetamine [Adderall] 15 mg tablet 20 mg PO DAILY metformin 500 mg tablet extended release 24 hr 1,000 mg PO DAILY Qty: 30 12RF Referrals / Follow Up: Olimpia Ward MD [Primary Care Provider] - Disposition Disposition (needs filled in before D/C Order can be placed): Home, Self Care
[2023-02-16] MEDS: Cefazolin 2 GM in 0.9% Normal Saline (100mL Bag) 100 ML IV (07:35)
--- NOTE | 2023-02-16 08:30 | RAD_ITS ---
STUDY: X-RAY - RIGHT ANKLE REASON FOR EXAM: Female, 32 years old. MEDIAL MALLEOLAR OSTEOTOMY TECHNIQUE: 3 intraoperative view(s) of the ankle. COMPARISON: None. FINDINGS: 3 limited intraoperative views of the right ankle performed as the patient is undergoing medial malleolar osteotomy. No intraoperative complications noted. Alignment at the medial malleolar fracture is anatomic. Follow-up recommended to ensure complete osseous union RAD/Ankle 2 Views IMPRESSION: Anatomic alignment of the medial malleolar after open reduction internal fixation, no intraoperative complications. Follow-up recommended to ensure complete osseous union Electronically Signed: Morro Sarah MD at 16:55 EDT ,
[2023-02-16] MEDS: Bupivacaine Mpf 0.5% 30 ML VIAL (10:20)
[2023-02-16] MEDS: Lidocaine 1% (30 ml sdv) 30 ML Vial (10:20)
--- NOTE | 2023-02-16 11:15 | PCM.OPRPT ---
Problems Associated Problem List Diagnoses (1) Closed trimalleolar fracture of right ankle: (2) Dislocation of right ankle joint: (3) Syndesmotic disruption of right ankle: (4) Closed fracture of medial malleolus with malunion: Report of Operation Date of Procedure: 02/16/23 Pre-Operative Diagnosis: 1. Closed medial malleolus fracture with malunion 2. Syndesmotic disruption right ankle 3. Dislocation of ankle joint right ankle 4. Closed trimalleolar fracture of right ankle 5. Flexion deformity right ankle Post-Operative Diagnosis: 1. Closed medial malleolus fracture with malunion 2. Syndesmotic disruption right ankle 3. Dislocation of ankle joint right ankle 4. Closed trimalleolar fracture of right ankle 5. Flexion deformity right ankle Surgery/Procedure Performed:: 1. Medial malleolar osteotomy right ankle/correction of malunion medial malleolus right ankle 2. Syndesmotic fixation/repair of syndesmosis right ankle 3. Reduction of Ankle joint dislocation Description of Surgical Findings:: See operative note for findings Surgeon: Jovani Wild meeting/event planner: Héctor Shipman DPM PGY-3 Type of Anesthesia: General and Local (20 cc one-to-one mixture 1% lidocaine plain 0.5% Marcaine plain) Specimen's removed: 1.6 mm K wire x2, Arthrex tight rope and Endobutton's Drains: None Estimated Blood Loss (mL): < 100mL Description of Procedure: HPI/indication: Patient is a 32-year-old female with history of displaced trimalleolar ankle fracture of the right ankle on 08/03/2022. She underwent ORIF of right ankle with repair of syndesmosis on 08/04/2022. At time of fixation medial malleolus was noted to have large silver dollar sized defect at the posterior medial aspect with soft bone. Bone unable to except various hardware fixation at this time and thus was pinned into position utilizing two 1.6 mm K wire fixation and osseous defect packed with Allosync pure DBM and Allosync cancellous bone chips. Postoperatively she did do well in terms of healing. It was discussed with her that she likely may require procedure to position medial mall pending healing status. Following period of weightbearing and physical therapy the medial malleolus did undergo malunion with shift in position with disruption of tight rope/syndesmotic fixation. Discussed with her the lateral shift/dislocation of this ankle joint does require correction to adequately function in terms of stability and range of motion in addition to discouraging postoperative arthritis. Patient was in agreement for surgical correction. I discussed the procedure in great detail, as well as risks and complications of the procedure. Patient is aware the risk and complications include but are not limited to the following: Pain, continued pain, complex regional pain syndrome, edema, wound dehiscence, delayed healing/nonhealing, infection, scarring, poor cosmetic result, hardware failure, symptomatic hardware/painful hardware, need for further surgical intervention, posttraumatic arthritis, neuritis/numbness, addiction to pain medication, delayed union/nonunion, malunion, difficulty wearing shoe gear, deformity, stroke, heart attack, allergic reaction, blood clot, loss of function, loss of limb, loss of life. Patient is able to repeat these back. Patient voices understanding of these risk. Patient is in agreement to proceed with the surgical intervention. Patient has seen PCP and has been cleared for surgical intervention. H&P was reviewed prior to entering the OR. All diagnostic data was reviewed prior to entering the OR. Operative limb was signed prior to entering the OR. She scheduled to undergo medial malleolar osteotomy/correction of medial malleolar malunion with repair of ankle syndesmosis at [facility] on 02/16/2023. Procedure: Under mild sedation patient brought in the operating room and placed on table in supine position. Following induction of general anesthesia a pneumatic thigh tourniquet was placed about the patient's right thigh. Right hip was bumped via a blanket and right foot/leg elevated via a blanket bump. Next, the foot was scrubbed, prepped, and draped in the usual aseptic manner. An Esmarch bandage was used to exsanguinate the right foot and the pneumatic thigh tourniquet was inflated to 300 mmHg. At this time fluoroscopic images were taken in multiple views for incision planning with landmarks marked out. Next, utilizing a #15 blade linear incision was made overlying the medial malleolus just proximal to the Endobutton of the tight rope and extended distally overlying the deltoid ligament complex. Incision was deepened utilizing sharp and blunt dissection. Care was taken to identify and retract all vital neurovascular structures. Neurovascular bundle and tendinous structures were identified and retracted and protected throughout the duration of this case. Next utilizing fluoroscopic imaging the two 1.6 mm K wires were identified and removed. Next, utilizing sagittal saw a malleolar osteotomy was performed of the medial malleolus. Next utilizing a pointed reduction clamp and 1.6 mm K wire the fracture fragment was shifted medially and temporarily fixated utilizing the 1.6 mm K wire. Medial gutter demonstrated adequate position and visualization post temporary reduction in multiple fluoroscopic views. Next, the medial aspect of the Endobutton of the tight rope was noted to be disrupted and loose and the remaining portion of the tight rope was severed utilizing a #15 blade and the Endobutton passed from the operative field to table in toto. Next, attention was directed to the lateral aspect of the ankle overlying the tight rope button where a linear incision was made over the fibula utilizing a #15 blade. Incision was deepened via sharp and blunt dissection. Care was taken to identify and retract all vital neurovascular structures. The Endobutton at the lateral aspect of the ankle from the tight rope was removed and passed from the operative field to the table in toto. All portions of tight rope were removed. Ankle was then flushed with copious amounts of normal sterile saline at medial and lateral incision sites. A pointed reduction clamp was utilized to reduce the syndesmosis. Reduction viewed under fluoroscopy in multiple views with improved reduction noted. Following AO principles the medial malleolus was fixated utilizing two 4.0 cannulated titanium screws. Screw sizes measured 4.0 x 56 mm for most anterior screw and posterior screw measured 4.0 x 52 mm. Following fixation 1.6 mm K wire was removed and correction of the medial malleolus position noted to be improved with excellent fixation. Next following AO principles Arthrex tight rope was placed across syndesmosis and following fixation of syndesmosis a hook test as well as an external rotation test was performed with no instability noted and reduction maintained. Next, an Arthrex suture tack anchor was deployed into the medial malleolus and reinforcement of the deltoid ligament was performed. Ankle was then tested under fluoroscopy for medial instability with none noted. Final fluoroscopic images were obtained in multiple views demonstrating improved alignment of the ankle joint postreduction. Ankle dorsiflexion did improve following procedure. Next, all sites were flushed with copious amounts of normal sterile saline. Lateral incision site deep tissue closed with 2-0 Vicryl. Subcutaneous tissue closed with 4-0 Monocryl. Skin reapproximated with 3-0 Prolene in simple interrupted fashion. At this time the pneumatic thigh tourniquet was deflated and a prompt hyperemic response was noted to the digits of the right foot. There was a small venous bleeder noted, identified, and repaired utilizing 4-0 Vicryl. Medial incision deep tissue closed utilizing 2-0 Vicryl. Subcutaneous tissue closed utilizing 4-0 Monocryl. Skin reapproximated with 3-0 Prolene in simple interrupted fashion. Next, a postoperative block was performed proximal to the incision sites about the ankle consisting of 20 cc one-to-one mixture of 1% lidocaine plain and 0.5 percent Marcaine plain. Incision sites were then dressed with Betadine soaked Adaptic, 4 x 4 gauze, Kerlix, web roll cast padding, 4 inch Jaden wrap, 6 inch Jaden wrap. A posterior splint was then applied and anchored with 4 inch Jaden wrap and 6 inch Jaden wrap and modified Zhu compression fashion. The patient tolerated the anesthesia and procedure well and was transported to PACU with vital signs stable vascular status intact to the right foot. Postoperative imaging obtained and reviewed in PACU. Family was given discharge instructions outlining care. She is instructed to keep dressings clean, dry, and intact to the right foot. She is to remain nonweightbearing to the right lower extremity utilizing crutches, knee scooter, and walker. Patient is to continue to elevate right lower extremity at all times rest for postoperative edema control. These are outlined in her discharge instructions. She will continue to take postoperative prescriptions as instructed. She has first postoperative appointment in office early next week. Grafts/Implants Used: Tight rope, knotless suture anchor, 4.0x 56mm & 4.0 x 52mm Cannulated screw Complications None Admit VTE Documentation VTE Present on Admission: No VTE Mechan Device Prophylaxis: SCD's VTE Pharm Prophylaxis ordered?: Yes
--- NOTE | 2023-02-16 11:40 | RAD_ITS ---
STUDY: X-RAY - RIGHT ANKLE REASON FOR EXAM: Female, 32 years old. Post-operative ORIF TECHNIQUE: 3 view(s) of the ankle. COMPARISON: Comparison is made with prior study of August 04, 2022. FINDINGS: The patient is status post open reduction and fixation of the medial malleolus fracture utilizing 2 metallic screws. Stable appearance of the prior ORIF of the distal fibula. Normal tibiotalar articulation and ankle mortise. Small calcaneal spur. The visualized subtalar, talonavicular, calcaneocuboid and tarsal articulations are normal. Soft tissue swelling. RAD/Ankle min 3 Views IMPRESSION: Status post screw fixation of a medial malleolar fracture. There is good alignment. Soft tissue swelling. Electronically Signed: Ted Matt MD at 12:30 EDT ,
== END 2023-02-16 14:05 | disposition home or self-care (01) ==
LOC: SDC 06:11 → AC 06:12
PROVIDERS: PCP Internal Medicine; Referring Provider Student in an Organized Health Care Education/Training Program; Visit Provider Student in an Organized Health Care Education/Training Program
PROC: (CPT 27720; principal; 2023-02-16 07:10)
DX: S82.51XP Displaced fracture of medial malleolus of right tibia, subsequent encounter for closed fracture with malunion (principal); X58.XXXD Exposure to other specified factors, subsequent encounter; S93.401D Sprain of unspecified ligament of right ankle, subsequent encounter; M21.271 Flexion deformity, right ankle and toes; F90.2 Attention-deficit hyperactivity disorder, combined type; Z79.899 Other long term (current) drug therapy
CPT/HCPCS: 27720; 27829; 01480; 73600; 73610; 76000; 81025; C1713; J7030; J2405

== ENCOUNTER 2025-04-24 11:05 | Observation (INO) | payer MEDICAID, SELFPAY ==
[2025-04-24] VITALS (7 sets, daily range): BP systolic 106–125; BP diastolic 67–88; PULSE 63–78; RESP 15–18; TEMP 36.7–37; O2SAT 98–100; BMI 29.0; BMI 28.2
--- NOTE | 2025-04-24 11:23 | EDS_ITS ---
HPI History of Present Illness Chief Complaint: Abd Pain Detail of Chief Complaint: Right lower quadrant Leonardo pain with nausea Informant: patient Onset/Context/Timing Onset: Today Context: Sudden Onset (Awoke with pain) Timing: Continuous Quality: Pain Location: Proximity of McBurney's point and right flank Current Severity: Mild Maximum Severity: Moderate Worsened by: Upright position Relieved by: Nothing Associated Symptoms Associated Symptoms: Nausea and decreased appetite Narrative Narrative: Patient is a 34-year-old woman. She states she does not have normal menses since she had an IUD placed. She states the IUD is approximately 7 years old. She does have history ovarian cyst. She denies fever but did complain of chills. She does endorse nausea without vomiting or diarrhea. She does report frequency without urgency or hematuria. She denies dysuria. She has no known history of renal ureterolithiasis. Patient denies HEENT, upper respiratory tract infectious symptoms, cardiac or respiratory symptoms. She has not noted a rash. There is no history of trauma. Prior similar symptoms: No Recent Illness/Hospitalization: No PFSH [facility] Medical History Wears glasses Non-smoker History of PCOS ADH disorder Ectopic Gestational diabetes Home Medications ?Medication ?Instructions ?Recorded ?Last Taken ?Type levonorgestrel 20.4 mcg/24 hr (up 1 device intrauterin e ONCE 08/15/18 08/03/22 History to 8 yrs) 52 mg intrauterine BIRTHCONTROL device (Liletta) dextroamphetamine-amphetamine 15 20 mg PO DAILY Unknown History mg tablet (Adderall) aspirin 325 mg tablet 325 mg PO DAILY #20 tabs 05/29 Unknown Rx doxycycline hyclate 100 mg capsule 100 mg PO DAILY #10 caps 02/16/23 Unknown Rx ondansetron 4 mg disintegrating 4 mg PO Q8H PRN nausea and 02/16/23 Unknown Rx tablet vomiting #28 tabs oxycodone-acetaminophen 5 mg-325 1 tab PO Q8H PRN pain 7 days #28 02/16/23 Unknown Rx mg tablet tabs metformin 500 mg tablet,extended 1,000 mg (2 x 500 mg) PO DAILY #30 08/23/23 Unknown Rx release 24 hr tabs Allergy/AdvReac Type Severity Reaction Status Date / Time No Known Allergies Allergy Verified 04/24/25 11:07 Family History Mother Diabetes Surgical History History of ankle surgery H/O section Social History Smoking Status: Never smoker alcohol intake: never substance use type: does not use caffeine: Yes what type of physical activity do you participate in: walking seatbelt use: always do you feel safe at home: Yes additional social history: [employer]- [facility] Patients at [facility] ED Constitutional Constitutional ED: Reports chills, fever(s) and subjective; Denies sweats or weight loss Eyes Eyes: Denies blurry vision, change in vision or diplopia ENT ENT ED: Denies ear pain, rhinorrhea or sore throat Cardiovascular Cardiovascular: Denies chest pain, orthopnea, palpitations, paroxysmal nocturnal dyspnea or racing heartbeat Respiratory/Chest Respiratory/Chest: Denies cough, dyspnea, dyspnea on exertion, orthopnea or paroxysmal nocturnal dyspnea Gastrointestinal Gastrointestinal: Reports abdominal pain, nausea and other Details: Anorexia ; Denies constipation, diarrhea, melena or vomiting Musculoskeletal Musculoskeletal: Denies arthralgias, back pain or myalgias Integumentary Denies rash Neurologic Neurologic: Denies headache(s), paresthesias or weakness Psychiatric Psychiatric: Denies anxiety, depression or suicidal ideation Endocrine Endocrinology: Denies cold intolerance or heat intolerance Hematologic/Lymphatic Hematologic/Lymphatic: Reports systems reviewed and no addt'l complaints, except as documented EXAM Physical Exam Const Vital Signs: 04/24/25 11:06 04/24/25 13:06 04/24/25 15:00 Temperature 98.2 F Temperature Source Oral Pulse Rate 78 72 66 Respiratory Rate 18 18 Blood Pressure 112/82 H 120/83 H 125/85 H Blood Pressure Mean 92 95 98 Pulse Ox 100 100 100 Oxygen Delivery Method Room Air Room Air Positive well nourished and well developed General Appearance ED: well developed and NAD; Negative for cyanotic, diaphoretic or pallor HEENT Reports moist mucous membranes HEENT Narrative: Head is atraumatic no cephalic. Ears normal. Nares patent Eyes PERRL and EOMs intact bilaterally General Eye ED: Negative for pale conjunctiva or scleral icterus Neck no JVD Resp normal respiratory effort and clear to auscultation bilaterally Cardio regular rate, regular rhythm, S1 normal heart sound, S2 normal heart sound and no murmurs GI normal to inspection, nondistended, normoactive bowel sounds and no masses; Negative for non-tender, non-distended or hepatosplenomegaly Palpation: soft, tender McBurney's point and guarding RLQ; Negative for splenomegaly, mass or rebound tenderness present Back/Spine no CVA tenderness Thoracic Spine / Upper Back: Negative for thoracic spinal tenderness Lumbar Spine / Lower Back: Negative for lumbar spinal tenderness Extremity normal to inspection Neuro oriented x3 and CN's II-XII intact bilaterally Sensorium / Orientation: alert Psych mental status grossly normal Skin no rashes or lesions noted, no wounds and skin turgor normal General Skin Exam: elasticity normal; Negative for jaundice or pallor MDM MDM MDM Narrative Medical decision making narrative: Differential diagnosis would include appendicitis, mesenteric adenitis, ruptured ovarian cyst, torsion, ureterolithiasis, urinary tract infection. Patient was medicated with Zofran and morphine for the nausea and pain. Patient did inform us she took oxycodone at 1015. She has no allergy to contrast or antibiotics. Lab Data Labs: Laboratory Results - last 24 hr 04/24/25 04/24/25 04/24/25 11:50 11:50 12:53 WBC Cancelled 7.5 Corrected WBC Cancelled RBC Cancelled 4.46 Hgb Cancelled 13.7 Hct Cancelled 38.9 MCV Cancelled 87.2 MCH Cancelled 30.7 MCHC Cancelled 35.2 RDW Std Deviation Cancelled 37.5 RDW Coeff of Bill Cancelled 11.9 Plt Count Cancelled 241 MPV Cancelled 9.9 Immature Gran % (Auto) Cancelled 0.100 Neut % (Auto) Cancelled 73.3 H Lymph % (Auto) Cancelled 20.9 [place] % (Auto) Cancelled 2.8 Eos % (Auto) Cancelled 2.4 Baso % (Auto) Cancelled 0.5 Absolute Neuts (auto) Cancelled 5.5 Absolute Lymphs (auto) Cancelled 1.56 Total Counted Cancelled Neutrophils % (Manual) Cancelled Band Neutrophils % Cancelled Lymphocytes % (Manual) Cancelled Monocytes % (Manual) Cancelled Eosinophils % (Manual) Cancelled Basophils % (Manual) Cancelled Metamyelocytes % Cancelled Myelocytes % Cancelled Promyelocytes % Cancelled Blast Cells % Cancelled Plasma Cell % (Manual) Cancelled Other Cells % Cancelled Nucleated RBC % Cancelled 0 Nucleated RBCs/100 WBC Cancelled Differential Comment Cancelled Diff Path Review Cancelled Hypersegmented Neuts Cancelled Atypical Lymphocytes Cancelled Reactive Lymphocytes Cancelled Smudge Cells Cancelled Toxic Granulation Cancelled Toxic Vacuolation Cancelled Dohle Bodies Cancelled Cecy Rods Cancelled Platelet Estimate Cancelled Plt Morphology Comment Cancelled RBC Morphology Cancelled Cancelled Polychromasia Cancelled Hypochromasia Cancelled Basophilic Stippling Cancelled Anisocytosis Cancelled Microcytosis Cancelled Macrocytosis Cancelled Spherocytes Cancelled Sickle Cells Cancelled Target Cells Cancelled Tear Drop Cells Cancelled Ovalocytes Cancelled Stomatocytes Cancelled [place] Bodies Cancelled Ally Cells Cancelled Bite Cells Cancelled Crenated Cell Cancelled Acanthocytes (Spur) Cancelled Rouleaux Cancelled Schistocytes Cancelled Sodium 140 Potassium 4.0 Chloride 103 Carbon Dioxide 24.7 Anion Gap 12 BUN 10 Creatinine 0.76 Estim Creat Clear Calc 102.65 Est GFR (MDRD) Non-Af 104 BUN/Creatinine Ratio 13.3 Glucose 98 Calcium 9.8 Total Bilirubin 0.43 Direct Bilirubin 0.16 AST 23 ALT 27 Alkaline Phosphatase 53 Total Protein 8.0 Albumin 4.9 Globulin 3.1 Lipase 43 Serum , Qual NEGATIVE Urine Color Yellow Urine Clarity Clear Urine pH 5.0 Ur Specific [place] 1.025 Urine Protein 15 H Urine Glucose (UA) Normal Urine Ketones 15 H Urine Occult Blood Negative Urine Nitrite Negative Urine Bilirubin Negative Urine Urobilinogen Normal Ur Leukocyte Esterase 25 H Urine RBC 0 SEEN Urine WBC 0-5 SEEN Ur Squamous Epith Cells 0-5 SEEN Urine Bacteria RARE Urine Mucus 0 SEEN Radiography Diagnostic Testing: Clinical Impression(s) from Imaging Studies Abdomen/Pelvis CT 04/24/25 13:34 IMPRESSION: 1. Adjacent to the cecum, and extending inferior to it, is seen mesenteric edema. What is believed to be the vermiform appendix is not showing significant dilation or definite wall thickening. This is an equivocal finding, but somewhat concerning for possible early appendicitis. Recommend clinical and laboratory correlation. If clinically indicated, consider further evaluation with sonography. 2. A small amount of free fluid is seen in the cul-de-sac. 3. Intrauterine device in place. Reading Location: [place] [id number] Management Discussion w/another healthcare provider: Derrick Builder (Spoke with Dr. Pierre regarding patient. He will come to the emergency room to evaluate her himself.) Treatment and Re-Evaluation :: The patient was reevaluated she has a positive Rovsing sign which was not noted initially. Light of the tenderness over McBurney's point positive Rovsing sign CT the abdomen pelvis was obtained. The CT reveals equivocal findings for early appendicitis. Will page surgeon on- call to discuss case. Comments:: Plan is observation. If she does not improve OR tomorrow. Discharge Plan Dx/Rx/DC Orders Clinical Impression: Right lower quadrant abdominal pain, Nausea, Elevated blood pressure reading without diagnosis of hypertension, Hyperglycemia due to type 2 diabetes mellitus Disposition Disposition: Acute Care Hospital [facility]
[2025-04-24 11:58] LABS: Mucous, Urine 0 SEEN /hpf (<or=2+); Red Blood Cells-Urine 0 SEEN /hpf (0-5)
[2025-04-24 12:15] LABS: Color, Urine Yellow (Yellow); Glucose, Dipstick Normal (Normal); Ketone-Dipstick 15 mg/dl (Negative); Leukocyte Esterase-Dipstick 25 /ul (Negative); Nitrite-Dipstick Negative (Negative); Occult Blood-Urine Negative /ul (Negative); Protein-Dipstick 15 mg/dl (Negative); Specific Gravity, Urine 1.025 (1.002-1.030); Urine Bilirubin Dipstick Negative (Negative)
[2025-04-24 12:18] LABS: Internal QC Validated? YES +Cl - CLEAR BKGD; Pregnancy, Serum, hCG Quali. NEGATIVE Negative; Record Kit Lot#, Serum Preg. 980607; Squamous Epithelial Cells - UA 0-5 SEEN /hpf (5-10)
[2025-04-24 12:47] LABS: Anion Gap 12 (5-15); BUN 10 mg/dL (4-19); BUN/Creat Ratio 13.3 RATIO (10-20); Calcium,Total 9.8 mg/dL (7.6-11.0); Carbon Dioxide 24.7 mmol/L (21.0-32.0); Chloride 103 mmol/L (98-108); Estimated Creatinine Clearance 102.65 ml/min (50-250); Glucose 98 mg/dL (70-99); Potassium 4.0 mmol/L (3.3-5.1)
[2025-04-24 13:06] LABS: Hematocrit 38.9 % (37-47); Hemoglobin 13.7 g/dL (12.0-15.0); Immature Granulocytes Count 0.010 X10^3/uL (0.0-0.0); Mean Corp Hgb Conc 35.2 g/dL (32-36); Mean Corpuscular Volume 87.2 fL (81-99); Mean Platelet Vol. 9.9 fl (6.2-12.0); NRBC Flagged by Analyzer 0 % (0-5); Platelet Count 241 K/mm3 (150-450); RBC Distribution Width CV 11.9 % (11.6-14.6); RBC Distribution Width SD 37.5 fl (35.1-43.9); Red Blood Count 4.46 M/mm3 (4.2-5.4); White Blood Count 7.5 K/mm3 (4.4-11.0)
--- NOTE | 2025-04-24 13:34 | CT_ITS ---
PROCEDURE: ABDOMEN/PELVIS W IV CONT ONLY 04/24/2025 REASON FOR EXAM: TENDERNESS RLQ, ROVSING SIGN TECHNIQUE: Procedure Code: [id number] Modality: CT Procedure: ABDOMEN/PELVIS W IV CONT ONLY Coronal and Sagittal reconstruction series were provided. CONTRAST: Intravenous administration of 95 mL Isovue-300. One or more dose reduction techniques were used (e.g., Automated exposure control, adjustment of the mA and/or kV according to patient size, use of iterative reconstruction technique. RADIATION DOSE SUMMARY: DLP: 858.34 mGycm COMPARISON: CT examination of 08/10/2021. FINDINGS: Lung bases: Unremarkable. A small amount of free fluid is seen within the cul-de-sac. Liver: Unremarkable. Gallbladder: Cholelithiasis is again seen. Spleen: Normal. Pancreas: Normal. Adrenals: Unremarkable Kidneys: Unremarkable Bladder: Unremarkable Reproductive Organs: An intrauterine device is in place. Bowel: Nondilated. Appendix: Adjacent to the cecum, and extending inferior to it, is seen mesenteric edema, new since the prior CT of 2021. What is believed to be the vermiform appendix does not show significant dilation or definite wall thickening. No free air is seen. No loculated fluid collection is noted. Lymph nodes: No adenopathy is seen. Vasculature: No evidence of abdominal aortic aneurysm. Bones: Mild degenerative changes of the visualized lower thoracic spine. No evidence of spondylolysis or spondylolisthesis. CT/Abdomen/Pelvis W IV Cont ONLY IMPRESSION: 1. Adjacent to the cecum, and extending inferior to it, is seen mesenteric genaro a. What is believed to be the vermiform appendix is not showing significant dilation or definite wall thickening. This is an eq uivocal finding, but somewhat concerning for possible early appendicitis. Recommend clinical and laboratory correlation. I f clinically indicated, consider further evaluation with sonography. 2. A small amount of free fluid is seen in the cul-de-sac. 3. Intrauterine device in place. Reading Location: [place] [id number]
[2025-04-24 14:59] LABS: AST(SGOT) 23 U/L (<=31); Alanine Aminotransfer ALT/SGPT 27 U/L (<=34); Albumin, Serum 4.9 g/dL (3.5-5.0); Alkaline Phosphatase 53 U/L (35-104); Bilirubin, Direct 0.16 mg/dL (0.00-0.30); Globulin 3.1 g/dL (2.2-4.2); Lipase 43 U/L (13-75)
--- NOTE | 2025-04-24 16:56 | HP.PCM_ITS ---
HPI - General General Date of Admission: 04/24/25 Date of Service: 04/24/25 Chief Complaint: Right lower quadrant pain HPI Narrative KARRIE CAMACHO, is a 34 F who presents to the emergency department with right lower quadrant pain for the past 6 days or so. This pain has been somewhat off-and-on. Her pain became much more intense today which prompted her visit to the emergency room. She denied fevers but did admit to some chills earlier. She states that she does have history of ovarian cysts which have ruptured and have caused similar pain but not to this degree. She denies any diminished appetite. She denies any nausea or vomiting. No diarrhea. She states that the pain began rather abruptly and has always been in the right lower quadrant. There is no periumbilical component or phase to her pain. She also describes pain going down to the anterior thigh. She was seen evaluate by the ER staff. White count was normal. CT scan showed findings concerning for some mild haziness around the cecum however the appendix itself appeared normal on CT scan. Due to concern for possible early appendicitis, general surgery consult was obtained. Patient complained of 8 or 9 out of 10 pain when I saw her this afternoon. She denies any nausea or vomiting but does not appear to be in any acute distress. [facility] Medical History Wears glasses Non-smoker History of PCOS ADH disorder Ectopic Gestational diabetes Home Medications ?Medication ?Instructions ?Recorded ?Last Taken ?Type levonorgestrel 20.4 mcg/24 hr (up 1 device intrauterin e ONCE 08/15/18 08/03/22 History to 8 yrs) 52 mg intrauterine BIRTHCONTROL device (Liletta) oxycodone-acetaminophen 5 mg-325 1 tab PO Q8H PRN pain 7 days #28 02/16/23 04/24/25 Rx mg tablet tabs metformin 500 mg tablet,extended 1,000 mg (2 x 500 mg) PO DAILY 08/23/23 04/21/25 Rx release 24 hr BLOOD SUGAR #30 tabs dextroamphetamine-amphetamine ER 1 cap PO DAILY ADD 04/23/25 History 25 mg 24hr capsule,extend release semaglutide (weight loss) 1 mg/0.5 1.1 mg subcut QWEEK WEIGHT LOSS 04/24/25 04/18/25 History mL subcutaneous pen injector Allergy/AdvReac Type Severity Reaction Status Date / Time No Known Allergies Allergy Verified 04/24/25 11:07 Family History (Reviewed 04/24/25 @ 11: by Dr. Daniel Gonzalez MD) Mother Diabetes Surgical History (Reviewed 04/24/25 @ 11: by Dr. Daniel Gonzalez MD) History of ankle surgery H/O section Social History (Reviewed 04/24/25 @ 11: by Dr. 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 She is in no acute distress. She does not appear ill. Head is normocephalic and atraumatic. Pupils equal round and reactive to light. Abdomen is soft and nondistended. She does have moderate tenderness to palpation near McBurney's point. No rebound Results Medical Records Data Attestation: I reviewed the patient's medical records Lab / Micro Data Attestation: I reviewed the patient's lab results. 04/24/25 12:53 04/24/25 11:50 Labs: Laboratory Results - last 24 hr 04/24/25 11:50: WBC Cancelled, Corrected WBC Cancelled, RBC Cancelled, Hgb Cancelled, Hct Cancelled, MCV Cancelled, MCH Cancelled, MCHC Cancelled, RDW Std Deviation Cancelled, RDW Coeff of Bill Cancelled, Plt Count Cancelled, MPV Cancelled, Immature Gran % (Auto) Cancelled, Neut % (Auto) Cancelled, Lymph % (Auto) Cancelled, [place] % (Auto) Cancelled, Eos % (Auto) Cancelled, Baso % (Auto) Cancelled, Absolute Neuts (auto) Cancelled, Absolute Lymphs (auto) Cancelled, Total Counted Cancelled, Neutrophils % (Manual) Cancelled, Band Neutrophils % Cancelled, Lymphocytes % (Manual) Cancelled, Monocytes % (Manual) Cancelled, Eosinophils % (Manual) Cancelled, Basophils % (Manual) Cancelled, Metamyelocytes % Cancelled, Myelocytes % Cancelled, Promyelocytes % Cancelled, Blast Cells % Cancelled, Plasma Cell % (Manual) Cancelled, Other Cells % Cancelled, Nucleated RBC % Cancelled, Nucleated RBCs/100 WBC Cancelled, Differential Comment Cancelled, Diff Path Review Cancelled, Hypersegmented Neuts Cancelled, Atypical Lymphocytes Cancelled, Reactive Lymphocytes Cancelled, Smudge Cells Cancelled, Toxic Granulation Cancelled, Toxic Vacuolation Cancelled, Dohle Bodies Cancelled, Cecy Rods Cancelled, Platelet Estimate Cancelled, Plt Morphology Comment Cancelled, RBC Morphology Cancelled 04/24/25 11:50: RBC Morphology Cancelled, Polychromasia Cancelled, Hypochromasia Cancelled, Basophilic Stippling Cancelled, Anisocytosis Cancelled, Microcytosis Cancelled, Macrocytosis Cancelled, Spherocytes Cancelled, Sickle Cells Cancelled, Target Cells Cancelled, Tear Drop Cells Cancelled, Ovalocytes Cancelled, Stomatocytes Cancelled, Sanchez-Artesian Bodies Cancelled, [place] Cells Cancelled, Bite Cells Cancelled, Crenated Cell Cancelled, Acanthocytes (Spur) Cancelled, Rouleaux Cancelled, Schistocytes Cancelled, Sodium 140, Potassium 4.0, Chloride 103, Carbon Dioxide 24.7, Anion Gap 12, BUN 10, Creatinine 0.76, Estim Creat Clear Calc 102.65, Est GFR (MDRD) Non-Af 104, BUN/Creatinine Ratio 13.3, Glucose 98, Calcium 9.8, Total Bilirubin 0.43, Direct Bilirubin 0.16, AST 23, ALT 27, Alkaline Phosphatase 53, Total Protein 8.0, Albumin 4.9, Globulin 3.1, Lipase 43, Serum , Qual NEGATIVE, Urine Color Yellow, Urine Clarity Clear, Urine pH 5.0, Ur Specific [place] 1.025, Urine Protein 15 H, Urine Glucose (UA) Normal, Urine Ketones 15 H, Urine Occult Blood Negative, Urine Nitrite Negative, Urine Bilirubin Negative, Urine Urobilinogen Normal, Ur Leukocyte Esterase 25 H, Urine RBC 0 SEEN, Urine WBC 0-5 SEEN, Ur Squamous Epith Cells 0-5 SEEN, Urine Bacteria RARE, Urine Mucus 0 SEEN 04/24/25 12:53: WBC 7.5, RBC 4.46, Hgb 13.7, Hct 38.9, MCV 87.2, MCH 30.7, MCHC 35.2, RDW Std Deviation 37.5, RDW Coeff of Bill 11.9, Plt Count 241, MPV 9.9, Immature Gran % (Auto) 0.100, Neut % (Auto) 73.3 H, Lymph % (Auto) 20.9, [place] % (Auto) 2.8, Eos % (Auto) 2.4, Baso % (Auto) 0.5, Absolute Neuts (auto) 5.5, Absolute Lymphs (auto) 1.56, Nucleated RBC % 0 Imaging Radiology Impression Abdomen/Pelvis CT 04/24/25 13:34 IMPRESSION: 1. Adjacent to the cecum, and extending inferior to it, is seen mesenteric edema. What is believed to be the vermiform appendix is not showing significant dilation or definite wall thickening. This is an equivocal finding, but somewhat concerning for possible early appendicitis. Recommend clinical and laboratory correlation. If clinically indicated, consider further evaluation with sonography. 2. A small amount of free fluid is seen in the cul-de-sac. 3. Intrauterine device in place. Reading Location: [facility] Assessment & Plan Assessment/Plan (1) Right lower quadrant abdominal pain: PLAN: Plan The patient is a 34-year-old female who has been having off-and-on right lower quadrant pain for several days. Over the weekend this pain was essentially nonexistent but seem to worsen today. CT scan is somewhat equivocal for appendicitis. Clinically this seems also potentially consistent with a ruptured ovarian cyst as well and she certainly has a history of that as well. I have recommended that we bring the patient in for observation and proceed with hydration and anti-inflammatory medications as well as antibiotics. Will evaluate her symptoms tomorrow morning. If her symptoms persist then we can certainly schedule her for a diagnostic laparoscopy and planned appendectomy. She is agreeable this plan. I will let her to eat today but she will be n.p.o. after midnight Charges/Coding Visit Charges Inpatient E&M: 29528 Init Hosp L3
[2025-04-24] MEDS: Ketorolac 30 MG/ML Syringe IV (18:00)
[2025-04-24] MEDS: 0.9% Saline Lock 10 ML Syringe IV (18:01)
[2025-04-24] MEDS: Dextrose 5%/0.9% NaCl 1,000 ML 90 ML IV (18:12)
[2025-04-24] MEDS: Piperacil/Tazobactam 3.375 GM in 0.9% Normal Saline (50mL MB+) 50 ML IV (21:09)
[2025-04-25] VITALS (16 sets, daily range): BP systolic 96–121; BP diastolic 52–77; PULSE 71–101; RESP 15–20; TEMP 36.2–37.2; O2SAT 93–100
[2025-04-25] MEDS: Ketorolac 30 MG/ML Syringe IV ×4 (01:15→17:30)
[2025-04-25] MEDS: Piperacil/Tazobactam 3.375 GM in 0.9% Normal Saline (50mL MB+) 50 ML IV ×3 (05:55→21:42)
[2025-04-25] MEDS: Dextrose 5%/0.9% NaCl 1,000 ML 90 ML IV ×2 (06:11→17:43)
[2025-04-25 06:19] LABS: Hematocrit 38.4 % (37-47); Hemoglobin 13.3 g/dL (12.0-15.0); Immature Granulocytes Count 0.010 X10^3/uL (0.0-0.0); Mean Corp Hgb Conc 34.6 g/dL (32-36); Mean Corpuscular Volume 87.3 fL (81-99); Mean Platelet Vol. 10.2 fl (6.2-12.0); NRBC Flagged by Analyzer 0 % (0-5); Platelet Count 238 K/mm3 (150-450); RBC Distribution Width CV 11.9 % (11.6-14.6); RBC Distribution Width SD 38.1 fl (35.1-43.9); Red Blood Count 4.40 M/mm3 (4.2-5.4); White Blood Count 5.9 K/mm3 (4.4-11.0)
[2025-04-25 06:49] LABS: Anion Gap 8 (5-15); BUN 6 mg/dL (4-19); BUN/Creat Ratio 8.9 RATIO (10-20); Calcium,Total 8.6 mg/dL (7.6-11.0); Carbon Dioxide 22.7 mmol/L (21.0-32.0); Chloride 106 mmol/L (98-108); Estimated Creatinine Clearance 113.97 ml/min (50-250); Glucose 89 mg/dL (70-99); Potassium 3.7 mmol/L (3.3-5.1)
--- NOTE | 2025-04-25 08:14 | PN.SURG_ITS ---
Subjective Subjective Patient seen on rounds this morning. Patient is still having similar right lower quadrant pain she states that it is slightly improved but is still present to a moderate extent. Objective Data Objective Data Vital Signs: Vital Signs Temp Pulse Resp BP Pulse Ox O2 Del Method 98.3 F 77 16 106/68 100 Room Air 04/25/25 08:07 04/25/25 08:07 04/25/25 08:07 04/25/25 08:07 04/25/25 08:07 04/25/25 08:07 Oxygen Delivery Method Room Air Weight: 167 lb Body Mass Index (BMI) 28.2 Intake & Output: Intake and Output for Last 24 Hours 04/23/25 04/24/25 04/25/25 23:59 23:59 23:59 Intake Total 1050 / 1050 Balance 1050 / 1050 Lab / Micro Data 04/25/25 04:33 04/25/25 04:33 Labs: Laboratory Results - last 24 hr 04/24/25 11:50: WBC Cancelled, Corrected WBC Cancelled, RBC Cancelled, Hgb Cancelled, Hct Cancelled, MCV Cancelled, MCH Cancelled, MCHC Cancelled, RDW Std Deviation Cancelled, RDW Coeff of Bill Cancelled, Plt Count Cancelled, MPV Cancelled, Immature Gran % (Auto) Cancelled, Neut % (Auto) Cancelled, Lymph % (Auto) Cancelled, [place]yman % (Auto) Cancelled, Eos % (Auto) Cancelled, Baso % (Auto) Cancelled, Absolute Neuts (auto) Cancelled, Absolute Lymphs (auto) Cancelled, Total Counted Cancelled, Neutrophils % (Manual) Cancelled, Band Neutrophils % Cancelled, Lymphocytes % (Manual) Cancelled, Monocytes % (Manual) Cancelled, Eosinophils % (Manual) Cancelled, Basophils % (Manual) Cancelled, Metamyelocytes % Cancelled, Myelocytes % Cancelled, Promyelocytes % Cancelled, Blast Cells % Cancelled, Plasma Cell % (Manual) Cancelled, Other Cells % Cancelled, Nucleated RBC % Cancelled, Nucleated RBCs/100 WBC Cancelled, Differential Comment Cancelled, Diff Path Review Cancelled, Hypersegmented Neuts Cancelled, Atypical Lymphocytes Cancelled, Reactive Lymphocytes Cancelled, Smudge Cells Cancelled, Toxic Granulation Cancelled, Toxic Vacuolation Cancelled, Dohle Bodies Cancelled, Cecy Rods Cancelled, Platelet Estimate Cancelled, Plt Morphology Comment Cancelled, RBC Morphology Cancelled 04/24/25 11:50: RBC Morphology Cancelled, Polychromasia Cancelled, Hypochromasia Cancelled, Basophilic Stippling Cancelled, Anisocytosis Cancelled, Microcytosis Cancelled, Macrocytosis Cancelled, Spherocytes Cancelled, Sickle Cells Cancelled, Target Cells Cancelled, Tear Drop Cells Cancelled, Ovalocytes Cancelled, Stomatocytes Cancelled, Sanchez-[place] Bodies Cancelled, Ally Cells Cancelled, Bite Cells Cancelled, Crenated Cell Cancelled, Acanthocytes (Spur) Cancelled, Rouleaux Cancelled, Schistocytes Cancelled, Sodium 140, Potassium 4.0, Chloride 103, Carbon Dioxide 24.7, Anion Gap 12, BUN 10, Creatinine 0.76, Estim Creat Clear Calc 102.65, Est GFR (MDRD) Non-Af 104, BUN/Creatinine Ratio 13.3, Glucose 98, Calcium 9.8, Total Bilirubin 0.43, Direct Bilirubin 0.16, AST 23, ALT 27, Alkaline Phosphatase 53, Total Protein 8.0, Albumin 4.9, Globulin 3.1, Lipase 43, Serum , Qual NEGATIVE, Urine Color Yellow, Urine Clarity Clear, Urine pH 5.0, Ur Specific [place] 1.025, Urine Protein 15 H, Urine Glucose (UA) Normal, Urine Ketones 15 H, Urine Occult Blood Negative, Urine Nitrite Negative, Urine Bilirubin Negative, Urine Urobilinogen Normal, Ur Leukocyte Esterase 25 H, Urine RBC 0 SEEN, Urine WBC 0-5 SEEN, Ur Squamous Epith Cells 0-5 SEEN, Urine Bacteria RARE, Urine Mucus 0 SEEN 04/24/25 12:53: WBC 7.5, RBC 4.46, Hgb 13.7, Hct 38.9, MCV 87.2, MCH 30.7, MCHC 35.2, RDW Std Deviation 37.5, RDW Coeff of Bill 11.9, Plt Count 241, MPV 9.9, Immature Gran % (Auto) 0.100, Neut % (Auto) 73.3 H, Lymph % (Auto) 20.9, [place] % (Auto) 2.8, Eos % (Auto) 2.4, Baso % (Auto) 0.5, Absolute Neuts (auto) 5.5, Absolute Lymphs (auto) 1.56, Nucleated RBC % 0, Hemoglobin A1c 5.2 04/25/25 04:33: WBC 5.9, RBC 4.40, Hgb 13.3, Hct 38.4, MCV 87.3, MCH 30.2, MCHC 34.6, RDW Std Deviation 38.1, RDW Coeff of Bill 11.9, Plt Count 238, MPV 10.2, Immature Gran % (Auto) 0.200, Neut % (Auto) 54.2, Lymph % (Auto) 35.2, [place] % (Auto) 4.6, Eos % (Auto) 5.1 H, Baso % (Auto) 0.7, Absolute Neuts (auto) 3.2, Absolute Lymphs (auto) 2.07, Nucleated RBC % 0, Sodium 137, Potassium 3.7, Chloride 106, Carbon Dioxide 22.7, Anion Gap 8, BUN 6, Creatinine 0.68 L, Estim Creat Clear Calc 113.97, Est GFR (MDRD) Non-Af 116, BUN/Creatinine Ratio 8.9 L, Glucose 89, Calcium 8.6 Radiography Diagnostic Testing: Radiology Impression Abdomen/Pelvis CT 04/24/25 13:34 IMPRESSION: 1. Adjacent to the cecum, and extending inferior to it, is seen mesenteric edema. What is believed to be the vermiform appendix is not showing significant dilation or definite wall thickening. This is an equivocal finding, but somewhat concerning for possible early appendicitis. Recommend clinical and laboratory correlation. If clinically indicated, consider further evaluation with sonography. 2. A small amount of free fluid is seen in the cul-de-sac. 3. Intrauterine device in place. Reading Location: [facility] Physical Exam Narrative She is alert and oriented x 3. No acute distress. Still having tenderness in the right lower quadrant Assessment & Plan Assessment/Plan (1) Right lower quadrant abdominal pain: PLAN: Plan The patient is a 34-year-old female with persistent right lower quadrant pain and CT scan equivocal for appendicitis. Her symptoms really have not improved to a significant extent. As a result of recommended diagnostic laparoscopy/appendectomy. This will be scheduled for later this afternoon. She will remain NPO. She is agreeable to this plan.
[2025-04-25] MEDS: 0.9% Saline Lock 10 ML Syringe IV ×3 (12:03→18:59)
[2025-04-25] MEDS: Lactated Ringers 1,000 ML 15 ML IV (14:09)
--- NOTE | 2025-04-25 14:30 | PRE.ANES_ITS ---
ASA Classification* ASA Classification ASA Classification: 2 and E Assessment & Plan Anesthesia* Anesthesia Assessment Anesthesia Assessment: Discussed sedation and/or anesthesia options, risks, benefits, and alternatives with patient/parents/legal guardian/POA. Questions invited. The patient/parents/legal guardian/POA seems to understand and agrees to proceed with anesthesia plan. Reviewed the physical assessment, medical history, allergy history and patient home medications list prior to surgery/procedure/anesthetic and documented any changes. Performed airway and anesthesia risk assessments. Anesthesia Type Anesthesia Type: General History Source History Obtained from:: Patient and Chart Anesthesia Focused Assessment* Temperature: 98.1 F Pulse Rate: 76 Blood Pressure: 121/69 Respiratory Rate: 16 Pulse Ox: 100 Oxygen Delivery Method: Room Air Airway Assessment Mouth opens: >3 cm Mallampati Score: II Teeth Condition: Chipped/Broken (Patient has a #8.) Neck Range of motion (ROM): Full ROM Labs Anesthesia Preop lab: CBC WBC, (4.4-11.0) 5.9 K/mm3 Today, 04:33 RBC, (4.2-5.4) 4.40 M/mm3 Today, 04:33 Hgb, (12.0-15.0) 13.3 g/dL Today, 04:33 Hct, (37-47) 38.4 % Today, 04:33 Plt Count, (150-450) 238 K/mm3 Today, 04:33 CHEMISTRY Potassium, (3.3-5.1) 3.7 mmol/L Today, 04:33 Sodium, (133-145) 137 mmol/L Today, 04:33 BUN, (4-19) 6 mg/dL Today, 04:33 Creatinine, (0.70-1.20) 0.68 mg/dL L Today, 04:33 Glucose, (70-99) 89 mg/dL Today, 04:33 POC Glucose, (70-110) 89 mg/dL 05/03/18, 05:11 TSH, (0.358-3.74) 1.66 uIU/mL 07/03/22, 09:25 COAG Urine Test Negative Negative 02/16/23, 06:30 Pre-Assessment Diagnosis/Proposed Procedure Planned Operative Procedure(s): Laparoscopic appendectomy Anesthesia History Anesthesia History - perioperative assistant: Anesthesia History - perioperative assistant Hx Hospitalization No 02/12/23 10:23 Any Problems With Anesthesia No 04/24/25 22:18 Cholinesterase deficiency No 04/24/25 22:18 You/Your Family Experience No 04/24/25 22:18 fever (hyperthermia) with Relationship Recent Exposure to Contagious No 04/24/25 22:18 Disease Does patient have nerve No 04/24/25 22:18 stimulator Patient instructed to have device shut off --Does patient have Pacemaker or ICD? When Was Last Pacemaker Check QUESTION #4 FULL TEXT: You/Your Family Experience fever (hyperthermia) with Anesthesia Last Oral Intake Last Oral intake: Last Oral Intake NPO since 0000 Meds taken in AM with sips of water? Meds patient instructed to take am of surgery Any additional information?: Yes NPO since: 00:00 PONV PONV - perioperative assistant: PONV - perioperative assistant Female HX of Motion Sickness HX of N/V After Surgery Non-Smoker Duration of Surgery greater than 60 minutes Number of Risk Factors PONV Score Height & Weight Height & Weight: Anesthesia: Height & Weight Height 5 ft 4.5 in 04/24/25 17:44 Weight: 75.75 kg 04/24/25 17:44 Body Mass Index (BMI) 28.2 04/24/25 17:44 Respiratory Assessment Respiratory Assessment - perioperative assistant: Respiratory Tract Infection Hx - perioperative assistant Hx Respiratory Tract Infection No 04/24/25 22:18 STOP Sleep Apnea STOP Sleep Apnea - perioperative assistant: STOP Sleep Apnea - perioperative assistant Hx Hypertension No 04/24/25 17:44 Hx Sleep Apnea No 04/24/25 17:44 CPAP BIPAP Do you snore loudly (louder No 04/24/25 17:44 than talking or can be heard Do you often feel tired/ No 04/24/25 17:44 fatigued/ sleepy during daytime? Has anyone observed you stop No 04/24/25 17:44 breathing during sleep? STOP Results Negative 04/24/25 17:44 QUESTION #5 FULL TEXT : Do you snore loudly (louder than talking or can be heard through closed doors)? Tobacco Use History Tobacco Use History - perioperative assistant: Tobacco Use History - perioperative assistant Tobacco Use Smoking Status Never smoker 04/24/25 17:44 Hx Tobacco Use No 04/24/25 17:44 Years Smoking Packs Smoked per Day Smoking Cessation Date was within the last 15 years Hx Smoking Cessation Date Hx Smoking Cessation Counseling Hematologic Medial History Hematologic Hx - perioperative assistant: Hematologic Medical Hx - net application support specialist Hx of Blood Transfusion No 04/24/25 17:44 Hx of Transfusion in last 3 No 04/24/25 17:44 Months Date of Last Transfusion (if within last 3 months) Ever experience any problems No 04/24/25 17:44 with transfusion(s)? Specify any problems Hx of Preganancy in last 3 No 04/24/25 17:44 Months Nurse Filling Out Transfusion TWOLF 04/24/25 17:44 & Questions: Date: 04/24/25 04/24/25 17:44 Time: 17:45 04/24/25 17:44 Patient unable to answer at this time (ie. confused, unrespo /Reproduction History /Reproductive History - perioperative assistant: /Reproductive Hx- perioperative assistant Hx Now No 04/24/25 22:18 Gestational Age (in weeks): EDC: Hx Hx Para Hx Section SAB No 04/24/25 17:44 Does the father of the baby or his family experience fever w Father of the baby Malignant Hypertension history comment Active Medications Active Medications: Current Medications Generic Name Dose Route Start Last Admin Trade Name Freq PRN Reason Stop Dose Admin Acetaminophen 1,000 mg 04/24/25 22:00 04/25/25 06:03 Acetaminophen 500 Mg Tablet PO Not Given Q8 TEO Dextrose/Sodium Chloride 1,000 mls @ 90 mls/hr 04/24/25 17:41 04/25/25 06:11 Dextrose 5%/0.9% Nacl IV 90 mls/hr .Q11H7M TEO Administration Piperacillin Sod/Tazobactam 50 mls @ 12.5 mls/hr 04/24/25 22:00 04/25/25 09:57 Sod 3.375 gm/ Sodium Chloride IV Infused Q8 TEO Infusion Sodium Chloride 250 mls @ 15 mls/hr 04/24/25 17:49 IV .[id number] PRN Saline Flush Sodium Chloride 250 mls @ 15 mls/hr 04/24/25 17:49 IV .[id number] PRN Additional IVPB Infusion Lactated Ringer's 1,000 mls @ 15 mls/hr 04/25/25 14:15 04/25/25 14:09 IV 15 mls/hr .Q48H TEO Administration Ketorolac Tromethamine 30 mg 04/24/25 18:00 04/25/25 12:03 Ketorolac 30 Mg/Ml Syringe IV 04/29/25 18:01 30 mg Q6 TEO Administration Morphine Sulfate 2 - 4 mg 04/24/25 17:41 04/25/25 03:02 Morphine 2 Mg/Ml Syringe IV 2 mg Q3H PRN PRN Administration Pain Score 6-10 Morphine Sulfate 2 - 4 mg 04/24/25 17:52 Morphine 4 Mg/Ml Syringe IV Q3H PRN PRN Pain Score 6-10 Ondansetron HCl 4 mg 04/24/25 17:41 04/25/25 03:00 Ondansetron 4 Mg/2 Ml Vial IV 4 mg Q8H PRN PRN Administration NAUSEA/VOMITING Oxycodone HCl 5 mg 04/24/25 17:41 04/24/25 20:53 Oxycodone 5 Mg Tablet PO 5 mg Q4H PRN PRN Administration Pain Score 4-10 Sodium Chloride 10 - 40 ml 04/24/25 17:49 04/25/25 12:03 0.9% Saline Lock 10 Ml Syringe IV 10 ml UD PRN Administration SALINE FLUSH PFSH Medical History Wears glasses Non-smoker History of PCOS ADH disorder Ectopic Gestational diabetes Home Medications ?Medication ?Instructions ?Recorded ?Last Taken ?Type levonorgestrel 20.4 mcg/24 hr (up 1 device intrauterin e ONCE 08/15/18 08/03/22 History to 8 yrs) 52 mg intrauterine BIRTHCONTROL device (Liletta) metformin 500 mg tablet,extended 1,000 mg (2 x 500 mg) PO DAILY 08/23/23 04/21/25 Rx release 24 hr BLOOD SUGAR #30 tabs dextroamphetamine-amphetamine ER 1 cap PO DAILY ADD 04/23/25 History 25 mg 24hr capsule,extend release semaglutide (weight loss) 1 mg/0.5 1.1 mg subcut QWEEK WEIGHT LOSS 04/24/25 04/18/25 History mL subcutaneous pen injector Allergy/AdvReac Type Severity Reaction Status Date / Time No Known Allergies Allergy Verified 04/24/25 11:07 Family History Mother Diabetes Surgical History History of ankle surgery H/O section Social History Smoking Status: Never smoker alcohol intake: never substance use type: does not use caffeine: Yes what type of physical activity do you participate in: walking seatbelt use: always do you feel safe at home: Yes 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
[2025-04-25] MEDS: Lactated Ringers 1,000 ML 1000 ML IV (14:43)
--- NOTE | 2025-04-25 14:45 | APP_PTH ---
PATIENT: KARRIE CAMACHO LOC: MS3 U#:[id number] AGE/SX: 34/F [place] [facility] [place]: Dr. Breezy Pierre MD : 1990 BED: 1 DIS: 04/26/2025 SPEC #: [id number] RECD: 04/26/25 07:14 STATUS: DEEJAY REQ #: [id number] MARK: 04/25/25 14:[address]: Breezy Pierre DEPT: SURGICAL PATHOLOGY RECD BY: Linwood Banks ENTERED: 04/26/25 10:01 SP TYPE: APPENDIX OTHR DR: Dr. Olimpia Ward MD Tissues: A - Appendix, NOS B - Fallopian tube Procedures: Surgery Specimen Level II Surgery Specimen Level III HEADER OPERATION: Laparoscopic appendectomy, right salpingo-oopherectomy PRE-OP DIAGNOSIS: Right lower quadrant abdominal pain TISSUE SUBMITTED: A- Appendix, B- Right ovary and fallopian tube MICROSCOPIC DIAGNOSIS A. Cecal appendix, laparoscopic appendectomy and right salpingo-oophorectomy: * Fibrous obliteration of the distal lumen of the appendix without active inflammation, benign B. Right ovary and fallopian tube: * Extensive hemorrhagic necrosis of the ovary and fallopian tube, compatible with torsion, benign MICROSCOPIC DESCRIPTION Slides are reviewed. GROSS DESCRIPTION A. Appendix is a 4.5 x 0.3-0.6 cm freedman-pink appendix with copious amounts of attached, focally congested mesoappendix. Margin is inked black and shaved. Sectioning reveals [id number], somewhat fibrotic and focally congested mucosa. Event Executive sections are submitted in 1 cassette. B. Right ovary and fallopian tube is a 24.3 g disrupted, red-freedman to richey cerebriform ovary expelling clotted blood collectively measuring 4.3 x 4.0 x 2.3 cm in aggregate. A definitive fallopian tube is not grossly appreciated. Sections have dark red, hemorrhagic cut surfaces throughout; definitive, viable ovarian parenchyma is not identified. Event Executive sections are submitted in 3 cassettes as follows: B1-B2: OvaryB3: Fragmented ovary (possible fallopian tube) [place] 04/26/2025PT:[id number]
[2025-04-25] MEDS: Lidocaine 1% (5 ml sdv) 5 ML Vial IV (14:50)
[2025-04-25] MEDS: Piperacil/Tazobactam 3.375 GM/50 ML ML IV (14:53)
[2025-04-25] MEDS: fentaNYL 100 MCG/2 ML Ampul 200 MCG IV (15:38)
[2025-04-25] MEDS: Bupiv/Epi 0.25% 30 ML Vial (16:04)
--- NOTE | 2025-04-25 16:05 | OP.PCM_ITS ---
Procedures Digestive 40xxx-49xxx: 22586 Laparoscopy appendectomy Operative Report (Standard) Operative Information Date of Procedure: 04/25/25 Pre-Operative Diagnosis: Right lower quadrant pain Post-Operative Diagnosis: Right lower quadrant pain secondary to right sided ovarian torsion Surgery/Procedure Performed: 1. Diagnostic laparoscopy 2. Laparoscopic appendectomy 3. Right salpingo-oophorectomy (Dr. Zapata) manager nicu: Yes Feltmaker And Weigher: Shara Vickers Tasks completed by assistant professor of business: Closing and Other Additional assistant chief engineer?: Yes Additional Contact Lens Technician #2: Milton Duque Tasks completed by assistant chief engineer #2: Other Additional assistant chief engineer?: No Type of Anesthesia: General and Local RN Documented Start/Stop Times: Operation Date: 04/25/25 14:45 Case Time Into Pre-Op 04/25/25 13:48 Anesthesia Start 04/25/25 14:43 Into Room 04/25/25 14:43 Procedure Start 04/25/25 15:03 Procedure End 04/25/25 16:08 Anesthesia End 04/25/25 16:13 Out of Room 04/25/25 16:13 Into Recovery 04/25/25 16:16 Procedure Start Time: 15:03 Procedure Stop Time: 16:05 Select all DRAINS/GRAFTS/IMPLANTS that apply: None Special Medications: IV Zosyn scheduled Estimated Blood Loss: 15 mL Specimen collected: Yes Description of specimen(s) removed: 1. Appendix 2. Right fallopian tube and right ovary Description of surgery: The patient is a 34-year-old female who was admitted late yesterday afternoon with right lower quadrant abdominal pain. CT scan initially indicated inflammation around the cecum but the appendix was normal. She was admitted for observation however her pain persisted this morning. Given the persistent pain, I recommended a diagnostic laparoscopy and appendectomy. We discussed the details of the planned procedure as well as risks benefits and alternatives. She wished to proceed. The patient was brought to the op room today following informed consent. Preoperative antibiotics were given and a timeout was performed. She was placed supine on the operative table with arms initially outstretched on arm boards. A general endotracheal anesthesia was induced. Her left arm was tucked at her side. A 5 mm incision was made just below the umbilicus. Through this a 5 mm trocar was placed optically. This was placed without incident. The abdomen was then fully insufflated with CO2 gas. There were no signs of bowel or vascular injury. A 5 mm trocar was placed under direct visualization in the left lower quadrant. A 12 mm trocar was placed under direct visualization in the left upper quadrant. Bowel graspers were then inserted and the cecum was identified. The cecum appeared very much normal without any gross inflammatory changes. The appendix was then identified. It also appeared relatively normal. Nevertheless appendectomy was performed. A [place] dissector was used to create a small window in the mesentery near the base of the appendix. Irregular tissue stapler load was fired across the base of the appendix flush with the cecum. A vascular load was then used to transect the mesoappendix. Once the specimen was free, it was placed into a bag and brought out through the 12 mm trocar site. The trocar was replaced. Hemostasis was excellent. The right lower quadrant was then irrigated and further inspected. In the process of doing so, it was readily noted that her right tube and ovary was quite abnormal. This seemed consistent with a ovarian torsion. It was quite swollen and purple in its appearance. At this point we placed an intraoperative consult request to Dr. Zapata who is the patient's HEARING THERAPY TEACHER. Dr. Zapata confirmed the presence of a right ovarian torsion. She proceeded to excise the right tube and ovary. She will dictate the details of this portion of the surgery. Once the tube and ovary were removed from the left upper quadrant incision, I then irrigated the pelvis and right lower quadrant with a total of 2 L of saline. Hemostasis was excellent. Next, the fascia at the 12 mm trocar site was closed using 0 PDS with the aid of a fascial closure device. 2 separate sutures were placed in the fascia. Next the remaining trocars were opened up and insufflation was allowed to escape. Local anesthetic was used throughout the course of the operation and a total of 30 cc were utilized. 4-0 Vicryl was then used to close the skin incisions. She was awakened from anesthesia and taken to recovery in good condition. Surgical Findings: Normal appendix Torsed right ovary and tube Complications Complications: No Admit VTE Documentation VTE Present on Admission: No VTE Mechan Device Prophylaxis: SCD's VTE Pharm Prophylaxis ordered?: No Reason prophylaxis not ordered: Treatment Not Indicated
--- NOTE | 2025-04-25 16:20 | PCM.POST.ANE ---
Anesthesia: Postop Eval I Current Vital Signs Temperature: 97.2 F Pulse Rate: 101 Blood Pressure: 114/57 Respiratory Rate: 20 Pulse Ox: 96 Oxygen Delivery Method: Room Air Assessment Airway patent: Yes Spontaneous unlabored respirations: Yes Mental status: Awake and Calm nausea: No Vomiting: No Anesthesia Complication: No Fluid Hydration Crystalloid volume administer (ml): 600 Total IV fluid infused: 600 Progress Note Anesthesia document: Postop Eval 1 completed: Yes
--- NOTE | 2025-04-25 16:34 | PCM.DC.SUM ---
Providers Date of Admission: 04/24/25 Date of Discharge: 04/25/25 Primary Care Physician: Dr. Olimpia Ward MD Reason For Visit: RIGHT LOWER QUADRANT ABDOMINAL PAIN NAUSEA Diagnosis Discharge Diagnosis (1) Right lower quadrant abdominal pain: Status: Acute Code(s): R10.31 - Right lower quadrant pain Plan The patient is a 34-year-old female with persistent right lower quadrant pain and CT scan equivocal for appendicitis. Her symptoms really have not improved to a significant extent. As a result of recommended diagnostic laparoscopy/appendectomy. This will be scheduled for later this afternoon. She will remain NPO. She is agreeable to this plan. Medications at Discharge Home Medications levonorgestrel 20.4 mcg/24 hr (up to 8 yrs) 52 mg intrauterine device (Liletta) 1 device intrauterine ONCE BIRTHCONTROL 08/15/18 metformin 500 mg tablet,extended release 24 hr 1,000 mg (2 x 500 mg) PO DAILY BLOOD SUGAR #30 tabs 08/23/23 dextroamphetamine-amphetamine ER 25 mg 24hr capsule,extend release 1 cap PO DAILY ADD 04/24/25 semaglutide (weight loss) 1 mg/0.5 mL subcutaneous pen injector 1.1 mg subcut QWEEK WEIGHT LOSS 04/24/25 oxycodone 5 mg tablet 5 mg PO Q8H PRN pain 3 days #12 tabs 04/25/25 Hospital Course Operations appendectomy and - (Right salpingo-oophorectomy) Summary of Care Provided Minutes Spent on Discharge: 15 Hospital Course: The patient is a 34-year-old female who presented to the emergency department at [facility] with several day history of intermittent right lower quadrant pain. On the day that she presented to the emergency room, her pain became worse and she presented to the ER for further evaluation and treatment. Blood work was unremarkable with a normal white blood cell count. CT scan was performed and showed some questionable inflammation around the cecum but her appendix was normal. While she did not present with typical appendix symptoms, she was admitted for observation. Have suspected that she may have had an ovarian cyst or other potential etiologies of pain. Nevertheless her pain was at least moderate. She was observed overnight and her symptoms persisted. It was then decided to proceed with a diagnostic laparoscopy and probable appendectomy. We discussed the details of the planned procedure and she wished to proceed. A laparoscopy was performed and her appendix was removed. At the time of the surgery it was also noted that she had a right ovarian torsion. Dr. Zapata came to the operating room and confirmed the ovarian torsion and then proceeded to remove the right tube and ovary. Patient tolerated the surgery well. Anticipate discharge later this evening Physical Exam Const oriented x3 and no apparent distress Weight / BMI Weight Weight: 167 lb Body Mass Index (BMI) 28.2 ABG / Lab / Microbiology Data 04/25/25 04:33 04/25/25 04:33 Laboratory: Laboratory Results - last 24 hr 04/24/25 12:53: Hemoglobin A1c 5.2 04/25/25 04:33: WBC 5.9, RBC 4.40, Hgb 13.3, Hct 38.4, MCV 87.3, MCH 30.2, MCHC 34.6, RDW Std Deviation 38.1, RDW Coeff of Bill 11.9, Plt Count 238, MPV 10.2, Immature Gran % (Auto) 0.200, Neut % (Auto) 54.2, Lymph % (Auto) 35.2, [place] % (Auto) 4.6, Eos % (Auto) 5.1 H, Baso % (Auto) 0.7, Absolute Neuts (auto) 3.2, Absolute Lymphs (auto) 2.07, Nucleated RBC % 0, Sodium 137, Potassium 3.7, Chloride 106, Carbon Dioxide 22.7, Anion Gap 8, BUN 6, Creatinine 0.68 L, Estim Creat Clear Calc 113.97, Est GFR (MDRD) Non-Af 116, BUN/Creatinine Ratio 8.9 L, Glucose 89, Calcium 8.6 D/C Instructions Discharge Activity: May Shower May shower in (days): 1 Ice area for (Minutes): 30 Lifting Restrictions: No lifting pushing or pulling more than 20 pounds for 3 to 4 weeks Call your doctor if your incision/area has: Continuous Slow Oozing, Sudden Increased Bleeding, Increased Pain/ Swelling, Increased Redness, Foul Smelling Discharge and Swelling at the incision site Call your doctor if you observe: Fever of 101 or Higher Cleanse incision/area with: Soap & Water DC O2, CPAP, BIPAP Needs Home O2 Discharge instructions: No DC home with Oxygen: No Additional Instructions: Follow-up with Dr. Zapata in 2 weeks. Please call her office to schedule appointment Please Follow Up With: Breezy Pierre MD When: 2 weeks. Please call office to schedule appointment Meaningful Use Info Meaningful Use Meaningful Use Diagnoses (Choose all that apply): None applicable Discharge Plan Admission Admit Date/Time: 04/24/25 16:48 Primary Reason for Your Visit: Right ovarian torsion Attending Provider: Breezy Pierre Primary Care Provider: Olimpia Ward Discharge Orders/Prescriptions Prescriptions: New oxycodone 5 mg tablet 5 mg PO Q8H PRN (Reason: pain) 3 Days Qty: 12 0RF Continued Liletta 19.5 mcg/24 hour (4 years) intrauterine device 1 device Intrauterine ONCE dextroamphetamine-amphetamine 25 mg capsule,extended release 24hr 1 cap PO DAILY semaglutide (weight loss) 1 mg/0.5 mL pen injector 1.1 mg subcut QWEEK Patient Comments: LATANYA WEDNESDAY metformin 500 mg tablet extended release 24 hr 1,000 mg PO DAILY Qty: 30 12RF Referrals / Follow Up: Olimpia Ward MD [Primary Care Provider, Internal Medicine] Disposition Disposition (needs filled in before D/C Order can be placed): Home, Self Care
--- NOTE | 2025-04-25 17:33 | POSTOPAN2_ITS ---
Anesthesia Postop Eval I Sum Postop Eval Completion status Anesthesia document: Postop Eval 1 completed: Yes Anesthesia Postop Eval I Summary Anesthesia Postop Eval I Summary: Anesthesia Postop Eval I: Assessment Summary Airway patent Yes 04/25/25 16:20 THORACIC MEDICINE [email or web address] Spontaneous unlabored Yes 04/25/25 16:20 THORACIC MEDICINE [email or web address] respirations Mental status Awake,Calm 04/25/25 16:20 THORACIC MEDICINE [email or web address] nausea No 04/25/25 16:20 THORACIC MEDICINE [email or web address] Vomiting No 04/25/25 16:20 THORACIC MEDICINE [email or web address] Anesthesia Postop Eval I: Fluid Summary Crystalloid volume administer 600 04/25/25 16:20 THORACIC MEDICINE [email or web address] (ml) Colloids volume administered ( ml) Blood Product volume administered (ml) Total IV fluid infused 600 04/25/25 16:20 THORACIC MEDICINE [email or web address] Anesthesia Postop Eval I: Summary Notes Anesthesia Complication No 04/25/25 16:20 THORACIC MEDICINE [email or web address] Anesthesia Complication Comment: Post-operative progress note Anesthesia: Postop Eval II Evaluation Mental status: Awake and Calm Pain Level: 2 nausea: No Vomiting: No Complications Anesthesia Complication: No
--- NOTE | 2025-04-25 17:33 | PCM.POSTANE2 ---
Anesthesia Postop Eval I Sum Postop Eval Completion status Anesthesia document: Postop Eval 1 completed: Yes Anesthesia Postop Eval I Summary Anesthesia Postop Eval I Summary: Anesthesia Postop Eval I: Assessment Summary Airway patent Yes 04/25/25 16:20 COMMUNICATIONS BILLING [email or web address] Spontaneous unlabored Yes 04/25/25 16:20 COMMUNICATIONS BILLING [email or web address] respirations Mental status Awake,Calm 04/25/25 16:20 COMMUNICATIONS BILLING [email or web address] nausea No 04/25/25 16:20 COMMUNICATIONS BILLING [email or web address] Vomiting No 04/25/25 16:20 COMMUNICATIONS BILLING [email or web address] Anesthesia Postop Eval I: Fluid Summary Crystalloid volume administer 600 04/25/25 16:20 COMMUNICATIONS BILLING [email or web address] (ml) Colloids volume administered ( ml) Blood Product volume administered (ml) Total IV fluid infused 600 04/25/25 16:20 COMMUNICATIONS BILLING [email or web address] Anesthesia Postop Eval I: Summary Notes Anesthesia Complication No 04/25/25 16:20 COMMUNICATIONS BILLING [email or web address] Anesthesia Complication Comment: Post-operative progress note Anesthesia: Postop Eval II Evaluation Mental status: Awake and Calm Pain Level: 2 nausea: No Vomiting: No Complications Anesthesia Complication: No
[2025-04-26] MEDS: Ketorolac 30 MG/ML Syringe IV ×3 (00:41→12:04)
[2025-04-26 06:00] VITALS: BP 98/62; PULSE 76; RESP 15; TEMP 36.4; O2SAT 97
[2025-04-26] MEDS: Piperacil/Tazobactam 3.375 GM in 0.9% Normal Saline (50mL MB+) 50 ML IV (06:28)
--- NOTE | 2025-04-26 07:14 | PCM.PN.SRG ---
Subjective Subjective Patient reports being nauseous whenever she gets up. She did throw up last night. She said her pain is mostly well-controlled but did take a dose of Dilaudid overnight. Objective Data Objective Data Vital Signs: Vital Signs Temp Pulse Resp BP Pulse Ox O2 Del Method 97.5 F L 76 15 98/62 97 Room Air 04/26/25 06:00 04/26/25 06:00 04/26/25 06:00 04/26/25 06:00 04/26/25 06:00 04/26/25 06:00 Oxygen Delivery Method Room Air Weight: 167 lb Body Mass Index (BMI) 28.2 Intake & Output: Intake and Output for Last 24 Hours 04/24/25 04/25/25 04/26/25 23:59 23:59 23:59 Intake Total 2187.54 / 2187.54 150 / 150 Output Total 165 / 515 350 / 350 Balance 2022.54 / 1672.54 -200 / -200 Lab / Micro Data 04/25/25 04:33 04/25/25 04:33 Physical Exam Const oriented x3 and no apparent distress Resp normal respiratory effort GI soft to palpation Palpation: tender Assessment & Plan Assessment/Plan (1) Torsion of right ovary and ovarian pedicle: PLAN: The patient is still having nausea. She is able to tolerate a diet I will discharge her home. Pain is well-controlled. Nitesh Valadez MD Pager: [facility] [address] [place] [address], [address] [place] [address] Office:
--- NOTE | 2025-04-26 07:20 | OP.PCM_ITS ---
Procedures Urinary/Genital 52xxx-59xxx: 20672 Lap procedure Oviduct/Ovary Operative Report (Standard) Operative Information Date of Procedure: 04/25/25 Pre-Operative Diagnosis: right lower pelvic pain Post-Operative Diagnosis: right adnexal torsion Surgery/Procedure Performed: laparoscopic right salpingooophorectomy judo teacher: Yes Pile Driver Operator Helper: Shara Vickers Tasks completed by assistant account executive: Altering tissue and Retracting Type of Anesthesia: General RN Documented Start/Stop Times: Operation Date: 04/25/25 14:45 Case Time Into Pre-Op 04/25/25 13:48 Anesthesia Start 04/25/25 14:43 Into Room 04/25/25 14:43 Procedure Start 04/25/25 15:03 Procedure End 04/25/25 16:08 Anesthesia End 04/25/25 16:13 Out of Room 04/25/25 16:13 Into Recovery 04/25/25 16:16 Out of Recovery 04/25/25 17:06 Procedure Start Time: 15:03 Procedure Stop Time: 16:08 Select all DRAINS/GRAFTS/IMPLANTS that apply: None Estimated Blood Loss: 25 Specimen collected: Yes Description of specimen(s) removed: right tube and ovary Description of surgery: Intraoperative consult due to adnexal findings, ports were already in place by general surgery placement. adnexa identified and a large hole in the broad ligament that was preexisting was identified and the right tube and ovary were noted to have twisted on itself and was making the ovary and tube nectrotic. Consent was obtained from the family present in the waiting room to remove the ovary and tube if needed. The ovary was unable to be detorsed due to the edema, so the IP ligament was transected with the ligasure device and then the ovary was detorsed three times. the remaining attachment to the uterine corpus was removd with the ligasure and the tube and ovary was removed through a bag in the LUQ without any introperative abdominal spillage. see general surgery notes for the rest of the procedure and port site closure Surgical Findings: right ovary and tube torsed 3 times with hole in the broad ligament Complications Complications: No
[2025-04-26 07:35] VITALS: BP 103/61; PULSE 74; RESP 16; TEMP 36.6; O2SAT 97
[2025-04-26] MEDS: 0.9% Saline Lock 10 ML Syringe IV (08:36)
--- NOTE | 2025-04-26 10:01 | PHA.DC.COU.R ---
Pharmacy [facility] has performed discharge medication counseling for this patient. The patient was counseled on the following discharge medications and changes in medications for homegoing review. - Oxycodone 5 mg tablet The Reason for Use, instructions for use, and potential side effects were reviewed for all new medications. The patient's questions regarding all of their medications were answered. The patient was able to verbally demonstrate an understanding of their discharge medications. Medications at Discharge Home Medications levonorgestrel 20.4 mcg/24 hr (up to 8 yrs) 52 mg intrauterine device (Liletta) 1 device intrauterine ONCE BIRTHCONTROL 08/15/18 metformin 500 mg tablet,extended release 24 hr 1,000 mg (2 x 500 mg) PO DAILY BLOOD SUGAR #30 tabs 08/23/23 dextroamphetamine-amphetamine ER 25 mg 24hr capsule,extend release 1 cap PO DAILY ADD 04/24/25 semaglutide (weight loss) 1 mg/0.5 mL subcutaneous pen injector 1.1 mg subcut QWEEK WEIGHT LOSS 04/24/25 oxycodone 5 mg tablet 5 mg PO Q8H PRN pain 3 days #12 tabs 04/25/25
[2025-04-26 12:01] VITALS: BP 103/65; PULSE 89; RESP 16; TEMP 36.7; O2SAT 98
== END 2025-04-26 15:11 | disposition home or self-care (01) ==
LOC: ED 16:31 → MS3 16:58
PROVIDERS: Anesthesiology; Admitting Provider Surgery; Emergency Provider Emergency Medicine; PCP Internal Medicine; Visit Provider Surgery
PROC: 0DTJ4ZZ Resection of Appendix, Percutaneous Endoscopic Approach (ICD-10-PCS; CPT 44970; principal; 2025-04-25 14:25)
DX: N83.511 Torsion of right ovary and ovarian pedicle (principal); E11.65 Type 2 diabetes mellitus with hyperglycemia; Z79.84 Long term (current) use of oral hypoglycemic drugs; R03.0 Elevated blood-pressure reading, without diagnosis of hypertension; R35.0 Frequency of micturition; E28.2 Polycystic ovarian syndrome; Z97.5 Presence of (intrauterine) contraceptive device; Z79.82 Long term (current) use of aspirin
CPT/HCPCS: 58661; 44970; 00840; 36415; 74177; 80048; 80076; 81001; 83036; 83690; 84703; 85025; 88302; 88304; 94668; 96361; 96365; 96366; 96375; 96376; 99221; 99283; Q9967; A4216; G0378; J2405